=== PATIENT | female | born 1950 | race Caucasian/White ===

== ENCOUNTER 2016-12-06 11:01 | Emergency (ER) | payer MEDICARE, OTHER ==
[2016-12-06 11:14] VITALS: BP 113/67; PULSE 70; RESP 18; TEMP 97.9
[2016-12-06] MEDS ORDERED: HYDROcodone/APAP 5-325MG 1 EACH TAB PO STA (12:03)
[2016-12-06] MEDS ORDERED: KETOROLAC 60 MG/2 ML VIAL IM STA (12:03)
--- NOTE | 2016-12-06 12:15 | ED ---
General Adult HPI - General Chief complaint: Back Pain/Injury Stated complaint: back and leg pain Time Seen by Provider: 12/06/16 11:27 Source: patient, RN notes reviewed, old records reviewed Mode of arrival: wheelchair Limitations: no limitations - History of Present Illness Initial comments: This is a 66-year-old female the ER for reevaluation of back pain. Patient's denies history of back pain, denies history of trauma. Patient does have history of heart disease, does have history of aortic disease. Stents. High blood pressure. Again patient denies neurological deficit, no loss of bowel or bladder. No weakness in legs or feet. Patient is able to ambulate. Pain is worse with movement, worse in her left buttocks area. Radiates down left leg - Related Data Home Medications Medication Instructions Recorded Confirmed LORazepam [Ativan] 1 mg PO TID 05/06/15 12/06/16 Valsartan/Hydrochlorothiazide 1 tab PO DAILY 01/15/16 12/06/16 [Diovan Hct 80-12.5 mg Tablet] Allergies Allergy/AdvReac Type Severity Reaction Status Date / Time codeine Allergy Rash/Hives Verified 12/06/16 11:59 Penicillins Allergy Rash/Hives Verified 12/06/16 11:59 pneumococcal vaccine Allergy Unknown Verified 12/06/16 11:59 Sulfa (Sulfonamide Allergy Nausea & Verified 12/06/16 11:59 Antibiotics) Vomiting & Diarrhea Tetanus Vaccines and Toxoid Allergy Unknown Verified 12/06/16 11:59 [Tetanus Vaccines & Toxoid] Review of Systems ROS Statement: Those systems with pertinent positive or pertinent negative responses have been documented in the HPI. ROS Other: All systems not noted in ROS Statement are negative. Past Medical History Past Medical History: Coronary Artery Disease (CAD), Chest Pain / Angina, CVA/ TIA, Hypertension Additional Past Medical History / Comment(s): TIA History of Any Multi-Drug Resistant Organisms: None Reported Past Surgical History: Cholecystectomy, Heart Catheterization, Hysterectomy, Joint Replacement Additional Past Surgical History / Comment(s): L knee replacement, colonscopy December 2015. 3 surgeries to lt knee Past Psychological History: No Psychological Hx Reported, Anxiety Additional Psychological History / Comment(s): occational anxiety and takes xanax Smoking Status: Former smoker Past Alcohol Use History: None Reported Past Drug Use History: None Reported - Past Family History Father Family Medical History: Diabetes Mellitus, Hypertension Mother Family Medical History: Cancer, Congestive Heart Failure (CHF) General Exam - General Exam Comments Initial Comments: Mild bony tenderness lumbosacral spine, negative straight leg raise Limitations: no limitations General appearance: alert, in no apparent distress Head exam: Present: atraumatic, normocephalic, normal inspection Eye exam: Present: normal appearance, PERRL, EOMI. Absent: scleral icterus, conjunctival injection, periorbital swelling ENT exam: Present: normal exam, mucous membranes moist Neck exam: Present: normal inspection. Absent: tenderness, meningismus, lymphadenopathy Respiratory exam: Present: normal lung sounds bilaterally. Absent: respiratory distress, wheezes, rales, rhonchi, stridor Cardiovascular Exam: Present: regular rate, normal rhythm, normal heart sounds. Absent: systolic murmur, diastolic murmur, rubs, gallop, clicks GI/Abdominal exam: Present: soft, normal bowel sounds. Absent: distended, tenderness, guarding, rebound, rigid Extremities exam: Present: normal inspection, full ROM, normal capillary refill. Absent: tenderness, pedal edema, joint swelling, calf tenderness Back exam: Present: normal inspection Neurological exam: Present: alert, oriented X3, CN II-XII intact Psychiatric exam: Present: normal affect, normal mood Skin exam: Present: warm, dry, intact, normal color. Absent: rash Course Vital Signs 12/06/16 11:13 Temperature 97.9 F Pulse Rate 70 Respiratory 18 Rate Blood Pressure 113/67 O2 Sat by Pulse 99 Oximetry - Reevaluation(s) Reevaluation #1: 12/06/16 12:14 Patient's pain is improved with a control here in the emergency room Medical Decision Making - Medical Decision Making 66 female the ER with nontraumatic back pain for 2 days. Takes Motrin for pain with no help. History of heart disease, patient given pain control here in emergency room will follow up with orthopedic doctor as directed - Radiology Data Radiology results: report reviewed (CT abdomen and pelvis shows no evidence of aortic dissection), image reviewed Disposition Clinical Impression: Mechanical back pain, Strain of lumbar region, Sciatica Disposition: HOME SELF-CARE Condition: Good Instructions: Acute Low Back Pain (ED) Referrals: Pantera Fuentes DO [Primary Care Provider] - 1-2 days
--- NOTE | 2016-12-06 12:40 | CT ---
EXAMINATION TYPE: CT abdomen pelvis wo con DATE OF EXAM: 12/06/2016 12:26 PM COMPARISON: NONE INDICATION: Patient complains of lower back pain with radiation to the left leg. DLP: 970 mGycm, Automated exposure control for dose reduction was used. CONTRAST: 0 mL of Omnipaque 300. Study performed without Oral Contrast TECHNIQUE: Axial images were obtained from above the diaphragm to the pubic rami in the axial plane a t 5 mm thick sections. Reconstructed images are reviewed on the computer in the coronal plane. FINDINGS: Limited CT sections are obtained the lung bases. The lung bases are clear. Small hiatal hernia is p resent. CT ABDOMEN: Liver: Normal Spleen: Normal Pancreas: Normal Adrenal glands: The adrenal glands are normal. Gallbladder: Not identified Kidneys: No masses are evident. No hydronephrosis is present. No cysts are present. Delayed images were obtained through the kidneys, which remain unremarkable. Aorta: Normal Inferior vena cava: Normal. CT PELVIS: Loops of bowel within the abdomen and pelvis are normal. Diverticular changes are within the sigm oid colon. Postsurgical changes within the distal sigmoid colon. Appendix: Normal as visualized. Urinary bladder: Normal. Genitourinary structures: Uterus and ovaries are not identified. Osseous structures: No suspicious lytic or sclerotic lesions. Facet changes are present. No spinal ca nal stenosis or neural foraminal stenosis is identified. Degenerative changes are within the sacroili ac joints. IMPRESSIONS: 1. Diverticulosis without acute diverticulitis sigmoid colon. 2. Hiatal hernia. 3. No acute changes.
== END 2016-12-06 14:00 | disposition home or self-care (01) ==
LOC: EC 11:01
DX: S39.012A Strain of muscle, fascia and tendon of lower back, initial encounter (principal); M54.30 Sciatica, unspecified side; F41.9 Anxiety disorder, unspecified; I10 Essential (primary) hypertension; Z87.891 Personal history of nicotine dependence; Z88.5 Allergy status to narcotic agent; Z88.0 Allergy status to penicillin; Z88.7 Allergy status to serum and vaccine; Z88.2 Allergy status to sulfonamides; Z79.899 Other long term (current) drug therapy; X58.XXXA Exposure to other specified factors, initial encounter
CPT/HCPCS: 99284; 96372; 74176; J1885

== ENCOUNTER → 2017-04-22 | Outpatient (CLI) | payer MEDICARE, OTHER ==
--- NOTE | 2017-04-22 11:22 | MM ---
Reason for exam: clinical finding. Last mammogram was performed 4 years and 11 months ago. History: Patient is postmenopausal. Benign excisional biopsy of the right breast. Took hormonal contraceptives for 2 years. Took estrogen for 1 year. Indicated problem(s): lump or thickening in both breasts. Physical Findings: Nurse did not find any significant physical abnormalities on exam. MG 3D Diag Mammo W/Cad CEZAR Bilateral CC and MLO view(s) were taken. Prior study comparison: May 15, 2012, mammogram, performed at [facility]. February 11, 2011, mammogram, performed at [facility]. There are scattered fibroglandular densities. No significant new findings when compared with previous films. These results were verbally communicated with the patient and result sheet given to the patient on 04/22/17. ASSESSMENT: Benign, BI-RAD 2 RECOMMENDATION: Routine screening mammogram of both breasts in 1 year. Manage patient on a clinical basis.
== END | disposition home or self-care (01) ==
LOC: RADMAMWWP 10:29
PROVIDERS: ATTEND Family Medicine
DX: N63 Unspecified lump in breast (principal)
CPT/HCPCS: G0204; G0279

== ENCOUNTER → 2018-07-22 | Outpatient (CLI) | payer MEDICARE, OTHER ==
--- NOTE | 2018-07-22 14:44 | BD ---
EXAMINATION TYPE: Axial Bone Density DATE OF EXAM: 07/22/2018 COMPARISON: NONE CLINICAL HISTORY: Height: 64 IN Weight: 158 LBS FRAX RISK QUESTIONS: Secondary Osteoporosis: 3. Menopause before 45: YES AGE 26 TOTAL HYST RISK FACTORS HISTORY OF: Postmenopausal woman: AGE 26 Take estrogen and/or progesterone medications: NOT NOW How long: AGE 26 - 27 MEDICATIONS: Additional Medications: HEART MED, LORAZEPAM, EXAM MEASUREMENTS: Bone mineral densitometry was performed using the [employer] System. Bone mineral density as measured about the Lumbar spine is: ----- L1-L4(G/cm2): 1.194 T Score Values are as follows: ----- L2: -0.1 ----- L3: 0.4 ----- L4: 0.4 ----- L1-L4: 0.1 Bone mineral density BASELINE Bone mineral density about the R hip (g/cm2): 0.786 Bone mineral density about the L hip (g/cm2): 0.791 T Score values are as follows: -----R Neck: -1.8 -----L Neck: -1.8 -----R Total: -1.9 -----L Total: -1.7 Bone mineral density BASELINE IMPRESSION: Osteopenia about the bilateral femora. NOTE: T-SCORE=SD OF THE YOUNG ADULT MEAN.
== END | disposition home or self-care (01) ==
LOC: RADBDWWP 11:57
PROVIDERS: ATTEND Family Medicine
DX: M85.852 Other specified disorders of bone density and structure, left thigh (principal); M85.851 Other specified disorders of bone density and structure, right thigh; Z78.0 Asymptomatic menopausal state
CPT/HCPCS: 77080

== ENCOUNTER → 2018-11-10 | Outpatient (CLI) | payer MEDICARE, OTHER ==
--- NOTE | 2018-11-10 09:09 | XR ---
EXAMINATION TYPE: XR chest 2V DATE OF EXAM: 11/10/2018 COMPARISON: 07/24/2017 HISTORY: Nocturnal palpitations TECHNIQUE: Frontal and lateral views of the chest are obtained. FINDINGS: There is no focal air space opacity, pleural effusion, or pneumothorax seen. The cardiac silhouette size is within normal limits. The osseous structures are intact. Minimal multilevel dege nerative change of the thoracic spine is noted. IMPRESSION: No acute cardiopulmonary process.
== END ==
LOC: RADXRMAIN 08:27
PROVIDERS: ATTEND Family Medicine
DX: R07.89 Other chest pain (principal)
CPT/HCPCS: 71046

== ENCOUNTER 2021-09-02 11:38 | Observation (INO) | payer MEDICARE, OTHER ==
[2021-09-02] MEDS ORDERED: ONDANSETRON 4 MG/2 ML VIAL IVP STA (12:11)
[2021-09-02] MEDS ORDERED: MORPHINE SULFATE 4 MG/ML SYRINGE IVP STA (12:11)
[2021-09-02] MEDS ORDERED: ASPIRIN 81 MG PO STA (12:12)
[2021-09-02] MEDS ORDERED: SODIUM CHLORIDE 0.9% 1,000 ML IV STA (12:12)
[2021-09-02 12:43] LABS: Partial Thromboplastin Time 24.8 sec (22.0-30.0); Prothrombin Time 10.7 sec (9.0-12.0)
[2021-09-02 12:44] LABS: ALT 18 U/L (4-34); AST 24 U/L (14-36); African American GFR (CKD) >90 (>60 ml/min/1.73 sqM); Albumin 4.1 g/dL (3.5-5.0); Alkaline Phosphatase 82 U/L (38-126); Amylase 65 U/L (30-110); Anion Gap 11 mmol/L; Blood Urea Nitrogen 6 mg/dL (7-17); Calcium 9.9 mg/dL (8.4-10.2); Carbon Dioxide 24 mmol/L (22-30); Chloride 104 mmol/L (98-107); Glucose 107 mg/dL (74-99); Lipase 172 U/L (23-300); Magnesium 2.3 mg/dL (1.6-2.3); Non-African American GFR(CKD) 84 (>60 ml/min/1.73 sqM); Potassium 2.9 mmol/L (3.5-5.1); Sodium 139 mmol/L (137-145); Total Bilirubin 1.6 mg/dL (0.2-1.3); Total Protein 6.6 g/dL (6.3-8.2)
[2021-09-02 12:48] LABS: Basophils # (A) 0.1 k/uL (0-0.2); Basophils % (A) 1 %; Eosinophils % (A) 1 %; HCT 46.1 % (34.0-46.0); HGB 16.2 gm/dL (11.4-16.0); Lymphocytes # (A) 1.6 k/uL (1.0-4.8); Lymphocytes % (A) 26 %; MCHC 35.2 g/dL (31.0-37.0); Mean Platelet Volume 6.6; Monocytes # (A) 0.3 k/uL (0-1.0); Monocytes % (A) 4 %; Neutrophils # (A) 4.1 k/uL (1.3-7.7); Neutrophils % (A) 68 %; Platelet Count 254 k/uL (150-450); RBC 5.06 m/uL (3.80-5.40); RDW 13.3 % (11.5-15.5); WBC 6.1 k/uL (3.8-10.6)
--- NOTE | 2021-09-02 12:52 | XR ---
EXAMINATION TYPE: XR chest 2V DATE OF EXAM: 09/02/2021 COMPARISON: 11/10/2018 TECHNIQUE: PA and lateral views submitted. HISTORY: Chest pain FINDINGS: The lungs are clear and there is no pneumothorax, pleural effusion, or focal pneumonia. Hypertrophi c change of the spine. Hyperinflation suggests COPD. IMPRESSION: 1. No acute process.
[2021-09-02] MEDS ORDERED: POTASSIUM CHLORIDE ER 20 MEQ TAB.ER PO STA ×2 (13:11→14:55)
[2021-09-02] MEDS ORDERED: ACETAMINOPHEN TAB 500 MG TAB PO STA (13:29)
[2021-09-02] MEDS ORDERED: NITROGLYCERIN SL TABS 0.4 MG TAB SUBLINGUAL STA (13:56)
--- NOTE | 2021-09-02 14:00 | CT ---
EXAMINATION TYPE: CT angio thor/abd pel aorta DATE OF EXAM: 09/02/2021 1:32 PM COMPARISON: HISTORY: Chest pain with radiation to back, mass left shoulder CT DLP: 1190 mGycm Automated exposure control for dose reduction was used. TECHNIQUE: Performed without and with IV Contrast, patient injected with 100 mL of Isovue 300. . FINDINGS: There are posterior subsegmental areas of groundglass consolidation bilaterally. Correlate for atelec tasis. Diverticulosis of the colon. Suggestion of previous surgery involving the rectosigmoid junctio n. Aorta of normal caliber with no evidence of aneurysm. Mild atherosclerotic changes. Coronary artery c alcification noted. Heart size mildly enlarged. Visualized central pulmonary arteries enhance normally. Small hiatal gertrudis ia noted. No pathologic adenopathy within the mediastinum or hilum. There is an aberrant course of th e right subclavian artery. This can be associated with vascular rings and compression of the airway a s well as the esophagus correlate clinically. 8mm nodularity left adrenal gland nonspecific. Liver and spleen have a normal appearance. Adrenal gla nds normal morphology. No obvious hydronephrosis or nephrolithiasis. Subcentimeter exophytic lesion l ower pole left kidney indeterminate by technique utilized. Visualized pancreas has a normal appearanc e. Bowel gas pattern nonspecific with no obstruction. Appendix normal. There is multilevel hypertrophic and degenerative change of the spine. Arthropathy of the hips. Bladder distends normally. No free flu id or free air.. IMPRESSION: 1. Aberrant right subclavian artery can be associated with a vascular ring correlate clinically. 2. Posterior subsegmental atelectasis favored over pneumonitis. 3. Diverticulosis of the colon. 4. Coronary artery calcification.
--- NOTE | 2021-09-02 14:08 | ED ---
General Adult HPI - General Chief complaint: Chest Pain Stated complaint: chest pain Time Seen by Provider: 09/02/21 11:57 Source: patient, RN notes reviewed, old records reviewed Mode of arrival: EMS Limitations: no limitations - History of Present Illness Initial comments: Patient is a 71-year-old female with past medical history remarkable for CAD, c hest pain, hypertension, CVA who presents to the department complaining of left- sided chest pain. Describes it as a substernal/left-sided chest pain that radiates towards the left shoulder. States it started last night and awoke her from sleep. Describes it as an 8 or 9 out of 10. Denies any associated shortness of breath, but does endorse some mild nausea. Denies any episodes of emesis or diarrhea. Denies any abdominal pain. Has no back pain currently. Denies any weakness, numbness, lightheadedness. Presents over concern for the chest pain as it is not resolved at this time. - Related Data Home Medications Medication Instructions Recorded Confirmed LORazepam [Ativan] 1 mg PO BID PRN 05/06/15 09/02/21 Metoprolol Tartrate [Lopressor] 50 mg PO HS 09/02/21 09/02/21 Multivitamins, Thera [Multivitamin 1 tab PO DAILY 09/02/21 09/02/21 (formulary)] Allergies Allergy/AdvReac Type Severity Reaction Status Date / Time codeine Allergy Rash/Hives Verified 09/02/21 13:31 Penicillins Allergy Rash/Hives Verified 09/02/21 13:31 pneumococcal vaccine Allergy Unknown Verified 09/02/21 13:31 Sulfa (Sulfonamide Allergy Nausea & Verified 09/02/21 13:31 Antibiotics) Vomiting & Diarrhea Tetanus Vaccines and Toxoid Allergy Unknown Verified 09/02/21 13:31 [Tetanus Vaccines & Toxoid] ketorolac [From Toradol] AdvReac Nausea & Verified 09/02/21 13:31 Vomiting Review of Systems ROS Statement: Those systems with pertinent positive or pertinent negative responses have been documented in the HPI. Review of Systems: CONST: Denies fever EYES: Denies blurry vision ENT: Denies nasal congestion C/V: Endorses chest pain RESP: Denies shortness of breath GI: Denies abdominal pain : Denies dysuria SKIN: Denies rash. MSK: Denies joint pain. NEURO: Denies headache ROS Other: All systems not noted in ROS Statement are negative. Past Medical History Past Medical History: Coronary Artery Disease (CAD), Chest Pain / Angina, CVA/TIA, Hypertension, Osteoarthritis (OA) Additional Past Medical History / Comment(s): TIA, colitis was previuosly charted but when i asked if she had-stated not that i know of". uterine fibroids-has sx, rt eye start of cataract. lt eye has freckle, "fluid around heart" History of Any Multi-Drug Resistant Organisms: None Reported Past Surgical History: Bowel Resection, Cholecystectomy, Heart Catheterization, Hysterectomy, Joint Replacement Additional Past Surgical History / Comment(s): L knee replacement, colonscopy December 2015, total hysterectomy. 3 surgeries to lt knee Past Anesthesia/Blood Transfusion Reactions: No Reported Reaction Past Psychological History: Anxiety Past Alcohol Use History: None Reported Past Drug Use History: None Reported - Past Family History Father Family Medical History: Diabetes Mellitus, Hypertension Mother Family Medical History: Cancer, Congestive Heart Failure (CHF) Brother(s) Family Medical History: Chest Pain / Angina, Coronary Artery Disease (CAD) Sister(s) Family Medical History: CVA/TIA Son(s) Family Medical History: Coronary Artery Disease (CAD) General Exam - General Exam Comments Initial Comments: General: Appears in no acute distress. HEAD: Normal with no signs of head trauma. EYES: PERRLA, EOMI, conjunctiva normal, no discharge. ENT: Hearing grossly intact, normal oropharynx. RESPIRATORY: Clear breath sounds bilaterally. No wheezes, rales, or rhonchi. C/V: Regular rate and rhythm. S1 and S2 auscultated, no edema, peripheral pulses 2+ and intact throughout. Chest pain is somewhat reproducible on palpation, however not fully reproducible. She still complains of his on the inside." ABD: Abd is soft, nontender, nondistended EXT: Normal range of motion, no obvious deformity SKIN: No rashes or lesions observed on exposed skin. NEURO: Alert and oriented 4. No focal sensory strength deficits. Limitations: no limitations Course Vital Signs 09/02/21 09/02/21 09/02/21 11:48 12:27 13:01 Temperature 97.1 F L 98.2 F Pulse Rate 63 57 L Pulse Rate [ 57 L Commercial [employer] ] Respiratory 18 18 Rate Blood Pressure 160/100 179/100 O2 Sat by Pulse 99 97 Oximetry 09/02/21 09/02/21 14:00 14:48 Temperature Pulse Rate 78 54 L Pulse Rate [ Commercial [employer] ] Respiratory 18 22 Rate Blood Pressure 161/101 138/90 O2 Sat by Pulse 96 96 Oximetry Medical Decision Making - Medical Decision Making Patient presents emergency Department complaining of typical chest pain. Started last night. Vital signs were reviewed and are stable at this time. We will obtain a cardiac workup. Patient was in agreement this plan. She'll be given morphine, Tylenol, aspirin as well as 1 L fluid bolus. She was in agree ment this plan. On further discussion, patient states that the pain seems to radiate towards her back, and awoke her from sleep. Due to this history, I would like to rule out the possibility of aortic dissection, considering the severity of the pain. We will therefore obtain a CT angiogram. EKG showed no signs of acute ischemia. Chest x-ray revealed no acute cardiopulmonary process. CT angiogram revealed no signs of dissection of the aorta or a pulmonary embolism.. There is atelectasis present, diverticulosis without diverticulitis, as well as coronary artery calcifications. There is a lso an apparent right subclavian artery. Laboratory studies are remarkable for a hypokalemia of 2.9. Remainder of labs are relatively unremarkable. Troponin is negative. On reevaluation, patient feels improved. Chest pain is resolved. I discussed the results of her imaging and laboratory studies. Due to patient's typical chest pain, as well as her heart score being moderate at 4-5, I would like to admitted to the hospital for cardiac observation on monitoring tech. She was in agreement this plan. We will trauma troponins. Cardiology will be consulted. I spoke with the admitting team under Dr. Mcleod who accepted the patient. Patient was therefore admitted to stable condition to observation telemetry. - Lab Data Result diagrams: 09/02/21 12:22 09/02/21 12: Lab Results 09/02/21 09/02/21 09/02/21 Range/Units 12: 12: 12:22 WBC 6.1 (3.8-10.6) k/uL RBC 5.06 (3.80-5.40) m/uL Hgb 16.2 H (11.4-16.0) gm/dL Hct 46.1 H (34.0-46.0) % MCV 91.0 (80.0-100.0) fL MCH 32.0 (25.0-35.0) pg MCHC 35.2 (31.0-37.0) g/dL RDW 13.3 (11.5-15.5) % Plt Count 254 (150-450) k/uL MPV 6.6 Neutrophils % 68 % Lymphocytes % 26 % Monocytes % 4 % Eosinophils % 1 % Basophils % 1 % Neutrophils # 4.1 (1.3-7.7) k/uL Lymphocytes # 1.6 (1.0-4.8) k/uL Monocytes # 0.3 (0-1.0) k/uL Eosinophils # 0.0 (0-0.7) k/uL Basophils # 0.1 (0-0.2) k/uL PT 10.7 (9.0-12.0) sec INR 1.0 (<1.2) APTT 24.8 (22.0-30.0) sec Sodium 139 (137-145) mmol/L Potassium 2.9 L (3.5-5.1) mmol/L Chloride 104 (98-107) mmol/L Carbon Dioxide 24 (22-30) mmol/L Anion Gap 11 mmol/L BUN 6 L (7-17) mg/dL Creatinine 0.74 (0.52-1.04) mg/dL Est GFR (CKD-EPI)AfAm >90 (>60 ml/min/1.73 sqM) Est GFR (CKD-EPI)NonAf 84 (>60 ml/min/1.73 sqM) Glucose 107 H (74-99) mg/dL Calcium 9.9 (8.4-10.2) mg/dL Magnesium 2.3 (1.6-2.3) mg/dL Total Bilirubin 1.6 H (0.2-1.3) mg/dL AST 24 (14-36) U/L ALT 18 (4-34) U/L Alkaline Phosphatase 82 (38-126) U/L Troponin I (0.000-0.034) ng/mL Total Protein 6.6 (6.3-8.2) g/dL Albumin 4.1 (3.5-5.0) g/dL Amylase 65 (30-110) U/L Lipase 172 (23-300) U/L 09/02/21 Range/Units 12:22 WBC (3.8-10.6) k/uL RBC (3.80-5.40) m/uL Hgb (11.4-16.0) gm/dL Hct (34.0-46.0) % MCV (80.0-100.0) fL MCH (25.0-35.0) pg MCHC (31.0-37.0) g/dL RDW (11.5-15.5) % Plt Count (150-450) k/uL MPV Neutrophils % % Lymphocytes % % Monocytes % % Eosinophils % % Basophils % % Neutrophils # (1.3-7.7) k/uL Lymphocytes # (1.0-4.8) k/uL Monocytes # (0-1.0) k/uL Eosinophils # (0-0.7) k/uL Basophils # (0-0.2) k/uL PT (9.0-12.0) sec INR (<1.2) APTT (22.0-30.0) sec Sodium (137-145) mmol/L Potassium (3.5-5.1) mmol/L Chloride (98-107) mmol/L Carbon Dioxide (22-30) mmol/L Anion Gap mmol/L BUN (7-17) mg/dL Creatinine (0.52-1.04) mg/dL Est GFR (CKD-EPI)AfAm (>60 ml/min/1.73 sqM) Est GFR (CKD-EPI)NonAf (>60 ml/min/1.73 sqM) Glucose (74-99) mg/dL Calcium (8.4-10.2) mg/dL Magnesium (1.6-2.3) mg/dL Total Bilirubin (0.2-1.3) mg/dL AST (14-36) U/L ALT (4-34) U/L Alkaline Phosphatase (38-126) U/L Troponin I <0.012 (0.000-0.034) ng/mL Total Protein (6.3-8.2) g/dL Albumin (3.5-5.0) g/dL Amylase (30-110) U/L Lipase (23-300) U/L - EKG Data -: EKG Interpreted by Me EKG Comments: 12-lead Electrocardiogram Interpretation Note EKG was reviewed and interpreted by myself. 12-lead ECG performed at 1205 is interpreted by me as revealing sinus bradycardia at a rate of 57 beats per minute. Left axis deviation. CA interval is 190 ms. There were no ST or T wave abnormalities to suggest myocardial ischemia or injury. R wave progression across the precordium was satisfactory. By my interpretation this EKG is non- diagnostic for acute ischemia. Patient has baseline artifact in lead V4. Disposition Clinical Impression: Chest pain, Hypokalemia Disposition: ADMITTED IP TO THIS HOSP Condition: Stable
[2021-09-02] MEDS ORDERED: NALOXONE 0.4 MG/ML 1 ML VIAL IV PRN (14:36)
[2021-09-02] MEDS ORDERED: MORPHINE SULFATE 4 MG/ML SYRINGE IV PRN (14:36)
[2021-09-02] MEDS ORDERED: ONDANSETRON 4 MG/2 ML VIAL IVP PRN (14:36)
[2021-09-02] MEDS: HEPARIN SODIUM,PORCINE/PF 5,000 UNIT/0.5 ML SYRINGE SQ SCH ×2 (16:34→23:07)
[2021-09-02] MEDS: LORazepam 1 MG TAB PO PRN (20:20)
[2021-09-02] MEDS ORDERED: METOPROLOL TARTRATE 50 MG TAB PO SCH (21:00)
[2021-09-03 07:34] VITALS: TEMP 97.7
[2021-09-03] MEDS: HEPARIN SODIUM,PORCINE/PF 5,000 UNIT/0.5 ML SYRINGE SQ SCH ×2 (07:35→15:22)
[2021-09-03] MEDS ORDERED: POTASSIUM CHLORIDE ER 20 MEQ TAB.ER PO STA (08:05)
[2021-09-03] MEDS ORDERED: AMINOPHYLLINE 500 MG/20 ML VIAL IV PRN (08:10)
[2021-09-03] MEDS ORDERED: CAFFEINE CITRATE 60 MG/3 ML VIAL IV PRN (08:10)
[2021-09-03] MEDS ORDERED: REGADENOSON 0.4 MG/5 ML SYRINGE IV PRN (08:10)
[2021-09-03] MEDS ORDERED: MULTIVITAMINS, THERA 1 EACH TAB PO SCH (09:00)
--- NOTE | 2021-09-03 09:44 | P.CRDCN ---
History of Present Illness Consult date: 09/03/21 History of present illness: HISTORY OF PRESENT ILLNESS: This is a 71 year old female with a past medical history significant for hypertension, anxiety, osteoarthritis, and TIA. Patient does not follow with a grain grader. We have been asked to see the patient in consultation for chest pain. Patient examined at the bedside. Patient states she began having chest pain two nights ago. She reports the pain has been intermittent since that time. She reports radiation into the left arm. She states "it felt like my heart was going to explode". Patient denies chest pain at the time of examination. Patient believes she has a history of coronary artery disease and states she has had a cardiac cath in the past. However, there are no records of that in the hospital EMR or at [facility]. The patient did have a Monica scan in 2017 that was negative for ischemia. EKG reveals sinus mechanism with nonspecific ST-T wave changes. Left anterior fascicular block. Chest xray negative for acute process CT angio: Apparent right subclavian artery can be associated with a vascular ring. Correlate clinically. Posterior subsegmental atelectasis favored over pneumonitis. Diverticulosis of the colon. Coronary artery calcification. Laboratory data: WBC 6.1. Hemoglobin 16.2. Platelet count 254. Sodium 139. Potassium 2.9. BUN 6. Creatinine 0.74. Magnesium 2.3. Troponin negative 3. Current home cardiac medications include metoprolol 50 mg at night Most recent echocardiogram obtained in 2017 revealed ejection fraction 60-65%, trace aortic regurgitation, trace mitral regurgitation, mild tricuspid regurgitation REVIEW OF SYSTEMS: At the time of my exam: CONSTITUTIONAL: Denies fever or chills. HEENT: Denies blurred vision, vision changes, or eye pain. Denies hemoptysis CARDIOVASCULAR: Denies chest pain. Denies orthopnea. Denies PND. Denies palpitations RESPIRATORY: Denies shortness of breath. GASTROINTESTINAL: Denies abdominal pain. Denies nausea or vomiting. HEMATOLOGIC: Denies bleeding disorders. GENITOURINARY: Denies any blood in urine. SKIN: Denies pruitis. Denies rash. PHYSICAL EXAM: VITAL SIGNS: Reviewed. GENERAL: Well-developed in no acute distress. HEENT: Head is normocephalic. Pupils are equal, round. Sclerae anicteric. Mucous membranes of the mouth are moist. Neck supple. No JVD or thyromegaly LUNGS: Respirations even and unlabored. Lungs essentially clear to auscultation bilaterally. HEART: Regular rate and rhythm. S1 and S2 heard. ABDOMEN: Soft. Nondistended. Nontender. EXTREMITIES: Normal range of motion. No clubbing or cyanosis. Peripheral pulses intact. No lower extremity edema NEUROLOGIC: Awake and alert. Oriented x 3. ASSESSMENT: Chest pain, troponin negative x 3 Hypokalemia Hypertension Anxiety Osteoarthritis History of TIA PLAN: An acute coronary event has been ruled out Obtain 2-D echo to assess cardiac structure and function Resume home cardiac medications Patient to undergo Lexiscan stress test today to assess for ischemia Replace potassium Further recommendations pending patient's course Nurse practitioner note has been reviewed by physician. Signing provider agrees with the documented findings, assessment, and plan of care. Past Medical History Past Medical History: Coronary Artery Disease (CAD), Chest Pain / Angina, CVA/TIA, Hypertension, Osteoarthritis (OA) Additional Past Medical History / Comment(s): TIA, colitis was previuosly charted but when i asked if she had-stated not that i know of". uterine fibroids-has sx, rt eye start of cataract. lt eye has freckle, "fluid around heart" History of Any Multi-Drug Resistant Organisms: None Reported Past Surgical History: Bowel Resection, Cholecystectomy, Heart Catheterization, Hysterectomy, Joint Replacement Additional Past Surgical History / Comment(s): L knee replacement, colonscopy December 2015, total hysterectomy. 3 surgeries to lt knee Past Anesthesia/Blood Transfusion Reactions: No Reported Reaction Past Psychological History: Anxiety Past Alcohol Use History: None Reported Past Drug Use History: None Reported - Past Family History Father Family Medical History: Diabetes Mellitus, Hypertension Mother Family Medical History: Cancer, Congestive Heart Failure (CHF) Brother(s) Family Medical History: Chest Pain / Angina, Coronary Artery Disease (CAD) Sister(s) Family Medical History: CVA/TIA Son(s) Family Medical History: Coronary Artery Disease (CAD) Medications and Allergies Home Medications Medication Instructions Recorded Confirmed Type LORazepam [Ativan] 1 mg PO BID PRN 05/06/15 09/02/21 History Metoprolol Tartrate [Lopressor] 50 mg PO HS 09/02/21 09/02/21 History Multivitamins, Thera [Multivitamin 1 tab PO DAILY 09/02/21 09/02/21 History (formulary)] Allergies Allergy/AdvReac Type Severity Reaction Status Date / Time codeine Allergy Rash/Hives Verified 09/02/21 13:31 Penicillins Allergy Rash/Hives Verified 09/02/21 13:31 pneumococcal vaccine Allergy Unknown Verified 09/02/21 13:31 Sulfa (Sulfonamide Allergy Nausea & Verified 09/02/21 13:31 Antibiotics) Vomiting & Diarrhea Tetanus Vaccines and Toxoid Allergy Unknown Verified 09/02/21 13:31 [Tetanus Vaccines & Toxoid] ketorolac [From Toradol] AdvReac Nausea & Verified 09/02/21 13:31 Vomiting Physical Exam Vitals: Vital Signs Temp Pulse Pulse Pulse Resp BP BP 09/03/21 07:00 97.7 F 53 L 142/75 09/03/21 01:46 97.6 F 57 L 16 116/71 09/02/21 18:58 97.6 F 66 17 124/71 09/02/21 15:50 97.6 F 52 L 16 09/02/21 14:48 54 L 22 138/90 09/02/21 14:00 78 18 161/101 09/02/21 13:01 98.2 F 57 L 18 179/100 09/02/21 12:27 57 L 09/02/21 11:48 97.1 F L 63 18 160/100 BP Pulse Ox 09/03/21 07:00 96 09/03/21 01:46 95 09/02/21 18:58 95 09/02/21 15:50 163/82 98 09/02/21 14:48 96 09/02/21 14:00 96 09/02/21 13:01 97 09/02/21 12:27 09/02/21 11:48 99 Intake and Output 09/02/21 09/03/21 09/03/21 22:59 06:59 14:59 Other: # Voids 2 1 Results 09/02/21 12:22 09/02/21 12:22 Cardiac Enzymes 09/02/21 09/02/21 09/02/21 Range/Units 12:22 12:22 15:41 AST 24 (14-36) U/L Troponin I <0.012 <0.012 (0.000-0.034) ng/mL 09/02/21 Range/Units 19:50 AST (14-36) U/L Troponin I <0.012 (0.000-0.034) ng/mL Coagulation 09/02/21 Range/Units 12:22 PT 10.7 (9.0-12.0) sec APTT 24.8 (22.0-30.0) sec CBC 09/02/21 Range/Units 12:22 WBC 6.1 (3.8-10.6) k/uL RBC 5.06 (3.80-5.40) m/uL Hgb 16.2 H (11.4-16.0) gm/dL Hct 46.1 H (34.0-46.0) % Plt Count 254 (150-450) k/uL Comprehensive Metabolic Panel 09/02/21 Range/Units 12:22 Sodium 139 (137-145) mmol/L Potassium 2.9 L (3.5-5.1) mmol/L Chloride 104 (98-107) mmol/L Carbon Dioxide 24 (22-30) mmol/L BUN 6 L (7-17) mg/dL Creatinine 0.74 (0.52-1.04) mg/dL Glucose 107 H (74-99) mg/dL Calcium 9.9 (8.4-10.2) mg/dL AST 24 (14-36) U/L ALT 18 (4-34) U/L Alkaline Phosphatase 82 (38-126) U/L Total Protein 6.6 (6.3-8.2) g/dL Albumin 4.1 (3.5-5.0) g/dL Current Medications Generic Name Dose Route Start Last Admin Trade Name Freq PRN Reason Stop Dose Admin Heparin Sodium (Porcine) 5,000 unit 09/02/21 16:00 09/03/21 07:35 Heparin Sodium,Porcine/Pf 5,000 Unit/0.5 Ml Syringe SQ 5,000 unit Q8HR KATE Administration Lorazepam 1 mg 09/02/21 14:38 09/02/21 20:20 Lorazepam 1 Mg Tab PO 1 mg BID PRN Administration ANXIETY/SLEEP Metoprolol Tartrate 50 mg 09/02/21 21:00 09/02/21 20:16 Metoprolol Tartrate 50 Mg Tab PO 50 mg HS KATE Administration Morphine Sulfate 4 mg 09/02/21 14:36 Morphine Sulfate 4 Mg/Ml Syringe IV Q4HR PRN Severe Pain Multivitamins 1 each 09/03/21 09:00 09/03/21 07:35 Multivitamins, Thera 1 Each Tab PO 1 each DAILY AKTE Administration Naloxone HCl 0.2 mg 09/02/21 14:36 Naloxone 0.4 Mg/Ml 1 Ml Vial IV Q2M PRN Opioid Reversal Ondansetron HCl 4 mg 09/02/21 14:36 Ondansetron 4 Mg/2 Ml Vial IVP Q8HR PRN Nausea And Vomiting Potassium Chloride 20 meq 09/03/21 08:05 Potassium Chloride Er 20 Meq Tab.Er PO 09/03/21 08:06 ONCE STA Intake and Output 09/02/21 09/03/21 09/03/21 22:59 06:59 14:59 Other: # Voids 2 1 09/02/21 12:22 09/02/21 12:22
[2021-09-03] MEDS ORDERED: ASPIRIN 81 MG PO SCH (09:45)
[2021-09-03] MEDS ORDERED: AMINOPHYLLINE 500 MG/20 ML VIAL IV ONE (10:52)
[2021-09-03 11:13] LABS: African American GFR (CKD) 87.2 (60.0-200.0); Anion Gap 7.9 mmol/L (10.00-18.00); BUN/Creat Ratio 12.25 Ratio (12.00-20.00); Blood Urea Nitrogen 9.8 mg/dL (9.0-27.0); Calcium 9.1 mg/dL (8.7-10.3); Carbon Dioxide 26.1 mmol/L (20.0-27.5); Non-African American GFR(CKD) 75.2 (60.0-200.0); Potassium 4.2 mmol/L (3.5-5.5)
[2021-09-03 11:39] LABS: Basophils # (A) 0.07 X 10*3/uL (0.00-0.10); Basophils % (A) 1.2 %; Eosinophils # (A) 0.14 X 10*3/uL (0.04-0.35); Eosinophils % (A) 2.3 %; HCT 39.3 % (37.2-46.3); HGB 12.8 g/dL (12.0-15.0); Lymphocytes # (A) 2.01 X 10*3/uL (0.90-5.00); Lymphocytes % (A) 33.2 %; MCH 30.5 pg (27.0-32.0); MCHC 32.6 g/dL (32.0-37.0); MCV 93.8 fL (80.0-97.0); Mean Platelet Volume 9.4 fL (9.5-12.2); Monocytes # (A) 0.47 X 10*3/uL (0.20-1.00); Monocytes % (A) 7.8 %; Neutrophils # (A) 3.36 X 10*3/uL (1.80-7.70); Neutrophils % (A) 55.3 %; Platelet Count 190 X 10*3/uL (140-440); RBC 4.19 X 10*6/uL (4.10-5.20); RDW 13.5 % (11.5-14.5); WBC 6.06 X 10*3/uL (4.50-10.00)
--- NOTE | 2021-09-03 14:11 | P.HPIM ---
History of Present Illness H&P Date: 09/03/21 Chief Complaint: Chest pain History of present illness 71 [address] of Dr[address] Fuentes with past medical history of coronary artery disease previous TIA, hypertension and diverticular disease in the past, with history of sigmoid resection following a routine colonoscopy comes in with severe chest pain that woke up the patient last night. Chest pain was substernal and radiated to left arm atypical in character. She has history of coronary artery disease but denies any history of stent placement or [place]. She has had cardiac cath in the past. She also a Lexiscan in 2017 when she presented with chest pain and it was negative for ischemia. Vitals were r eviewed patient is afebrile pulse pressure 142/75 oxygenating at 96% on room air Labs reviewed patient's CBC is unremarkable CMP is unremarkable troponin 2 negative COVID negative EKG on 09/03 seconds a sinus bradycardia with left anterior fascicular block CT angiogram thoracic abdominal was suggestive for name brand right subclavian artery associated with a vascular ring? Related clinically with posterior subsegmental atelectasis is over pneumonitis diverticulosis of the colon: Coronary artery calcification seen cardiology consult placed. Patient was taken for Lexiscan ROS Constitutional: Denies chills, Denies fever, Denies lethargy, Denies malaise, Denies poor appetite, Denies weakness, Denies weight loss Eyes: denies decreased vision, denies diplopia, denies discharge, denies pain Ears: deny: decreased hearing Ears, nose, mouth and throat: Denies dental pain, Denies headache, Denies nasal discharge, Denies nose pain Cardiovascular: Denies chest pain, Denies decreased exercise tolerance, Denies edema, Denies high blood pressure, Denies irregular heart beat, Denies palpitations, Denies paroxysmal nocturnal dyspnea, Denies rapid heart beat, Denies shortness of breath Respiratory: Denies congestion, Denies cough, Denies cough with sputum, Denies dyspnea, Denies home oxygen, Denies wheezing Gastrointestinal: Denies abdominal pain, Denies change in bowel habits, Denies coffee ground emesis, Denies early satiety, Denies excessive gas, Denies he artburn, Denies hematemesis, Denies hematochezia, Denies loss of appetite, Denies nausea, Denies vomiting Genitourinary: Denies dysuria, Denies flank pain, Denies kidney stones, Denies menorrhagia, Denies urgency, Denies urinary frequency Musculoskeletal: Denies gait dysfunction, Denies limitation of motion, Denies morning stiffness, Denies muscle cramps Integumentary: Denies rash, Denies wounds, Denies brittle nails, Denies change in hair/nails, Denies darkening of skin Neurological: Denies balance difficulties, Denies change in speech, Denies double vision, Denies gait dysfunction, Denies loss of vision, Denies motor disturbance, Denies numbness, Denies paralysis, Denies paresthesias, Denies seizures Psychiatric: Denies anxiety, Denies depression Endocrine: Denies excessive sweating, Denies excessive thirst, Denies high blood sugars, Denies palpitations Hematologic/Lymphatic: Denies easy bruising, Denies lymphadenopathy Social history Ex-smoker smoked 10 cigarettes a day and quit 5-6 years ago Family history One son has coronary artery disease with stent placement at 48 One brother was coronary artery disease and diabetes and cancer Mother at 54 from colon cancer Data her diabetes Physical exam - Constitutional General appearance: cooperative, no acute distress, thin appears uncomfortable due to ongoing nausea - EENT Eyes: anicteric sclerae, PERRLA, normal appearance ENT: hearing grossly normal - Neck Neck: no lymphadenopathy, normal ROM, no other, no rigidity, no stridor, no thyromegaly - Respiratory Respiratory: bilateral: CTA, negative: diminished, dullness, rales, rhonchi, tender to palpate involving lower chest and epigastric - Cardiovascular Rhythm: regular Heart sounds: normal: S1, S2 Abnormal Heart Sounds: no systolic murmur, no diastolic murmur, no rub, no S3 Gallop, no S4 Gallop, no click, no other - Gastrointestinal General gastrointestinal: normal bowel sounds, soft tender involving the epigastric region - Integumentary Integumentary: no rash - Neurologic Neurologic: CNII-XII intact no motor or sensory deficit - Musculoskeletal Musculoskeletal: gait normal, strength equal bilaterally - Psychiatric Psychiatric: A&O x's 3, appropriate affect Assessment and plan #1 acute chest pain - Appears atypical likely gastric in etiology -Protonix 40 IV twice a day -Troponin 3 negative. -EKG negative for ST or T-wave changes -Lexiscan stress test ordered cardiology consult #2 history of coronary artery disease -Continue Diovan - Recommend aspirin 81 a day #3 history of diverticulosis status post sigmoid resection -Stable #4 former tobacco abuse -No COPD no wheezing on exam #5 anxiety -Continue Ativan 1 mg at bedtime as needed #6 history of TIA - Stable #[id number] prophylaxis with heparin every 12 #8 GI prophylaxis with Pepcid 20 daily #9 CODE STATUS full #10 disposition likely discharge today with Lexiscan negative Past Medical History Past Medical History: Coronary Artery Disease (CAD), Chest Pain / Angina, CVA/TIA, Hypertension, Osteoarthritis (OA) Additional Past Medical History / Comment(s): TIA, colitis was previuosly shamika rted but when i asked if she had-stated not that i know of". uterine fibroids- has sx, rt eye start of cataract. lt eye has freckle, "fluid around heart" History of Any Multi-Drug Resistant Organisms: None Reported Past Surgical History: Bowel Resection, Cholecystectomy, Heart Catheterization, Hysterectomy, Joint Replacement Additional Past Surgical History / Comment(s): L knee replacement, colonscopy December 2015, total hysterectomy. 3 surgeries to lt knee Past Anesthesia/Blood Transfusion Reactions: No Reported Reaction Past Psychological History: Anxiety Past Alcohol Use History: None Reported Past Drug Use History: None Reported - Past Family History Father Family Medical History: Diabetes Mellitus, Hypertension Mother Family Medical History: Cancer, Congestive Heart Failure (CHF) Brother(s) Family Medical History: Chest Pain / Angina, Coronary Artery Disease (CAD) Sister(s) Family Medical History: CVA/TIA Son(s) Family Medical History: Coronary Artery Disease (CAD) Medications and Allergies Home Medications Medication Instructions Recorded Confirmed Type LORazepam [Ativan] 1 mg PO BID PRN 05/06/15 09/02/21 History Metoprolol Tartrate [Lopressor] 50 mg PO HS 09/02/21 09/02/21 History Multivitamins, Thera [Multivitamin 1 tab PO DAILY 09/02/21 09/02/21 History (formulary)] Allergies Allergy/AdvReac Type Severity Reaction Status Date / Time codeine Allergy Rash/Hives Verified 09/02/21 13:31 Penicillins Allergy Rash/Hives Verified 09/02/21 13:31 pneumococcal vaccine Allergy Unknown Verified 09/02/21 13:31 Sulfa (Sulfonamide Allergy Nausea & Verified 09/02/21 13:31 Antibiotics) Vomiting & Diarrhea Tetanus Vaccines and Toxoid Allergy Unknown Verified 09/02/21 13:31 [Tetanus Vaccines & Toxoid] ketorolac [From Toradol] AdvReac Nausea & Verified 09/02/21 13:31 Vomiting Physical Exam Vitals: Vital Signs Temp Pulse Pulse Resp BP BP BP 09/03/21 07:00 97.7 F 53 L 142/75 09/03/21 01:46 97.6 F 57 L 16 116/71 09/02/21 18:58 97.6 F 66 17 124/71 09/02/21 15:50 97.6 F 52 L 16 163/82 09/02/21 14:48 54 L 22 138/90 09/02/21 14:00 78 18 161/101 Pulse Ox 09/03/21 07:00 96 09/03/21 01:46 95 09/02/21 18:58 95 09/02/21 15:50 98 09/02/21 14:48 96 09/02/21 14:00 96 Intake and Output 09/02/21 09/03/21 09/03/21 22:59 06:59 14:59 Other: # Voids 2 1 Weight 63.5 kg Results CBC & Chem 7: 09/03/21 07:07 09/03/21 07:07 Labs: Abnormal Lab Results - Last 24 Hours (Table) 09/03/21 09/03/21 Range/Units 07:07 07:07 MPV 9.4 L (9.5-12.2) fL Anion Gap 7.90 L (10.00-18.00) mmol/L Thrombosis Risk Factor Assmnt - Choose All That Apply Each Risk Factor Represents 2 Points: Age 61-74 years Thrombosis Risk Factor Assessment Total Risk Factor Score: 2 Thrombosis Risk Factor Assessment Level: Low Risk
[2021-09-03 14:32] VITALS: BMI 22.6
--- NOTE | 2021-09-03 14:32 | EST ---
EXERCISE STRESS LEXISCAN STRESS TEST: AGE: 71 SEX: F HT: 5'6" WT: 139 lbs. PROTOCOL: Lexiscan Cardiolite STAGE: NA DURATION OF EXERCISE: NA HEART RATE REST: 58 BLOOD PRESSURE REST: 179/100 MAXIMUM HEART RATE ACHIEVED: 105 MAXIMUM BLOOD PRESSURE: 180/106 85% MPHR: 128 100% MPHR: 151 METS: NA INDICATIONS: Chest pain CLINICAL INFORMATION: Baseline EKG revealed a sinus mechanism with minor nonspecific ST-T changes and leftward axis. With Lexiscan administration, heart rate changed from 58 to 98 beats per minute. Blood pressure changed from 179/100 to 165/97. EKG remained inconclusive. By EKG criteria, this was an inconclusive Lexiscan stress test. The nuclear scan results, which are more pertinent, will be reported by the radiologist. MMODL / IJN: [id number] /
[2021-09-03 16:27] VITALS: BP 161/92; PULSE 72; RESP 18
--- NOTE | 2021-09-03 16:34 | NM ---
EXAMINATION TYPE: NM stress lexiscan cardiolite DATE OF EXAM: 09/03/2021 COMPARISON: NONE HISTORY: Chest pain TECHNIQUE: After the intravenous administration of 9.5 mCi Tc 99m Sestamibi - Cardiolite resting SPE CT images acquired 60 minutes post injection. At peak stress 26.9 mCi Tc 99m Sestamibi - Stress images obtained 45 minutes post injection The patient was stressed with 0.4mg Lexiscan. FINDINGS: There is diminished radiotracer accumulation along the inferior lateral wall. This appears similar be tween stress and rest. No reversible perfusion defects are evident. No reversible stress defects on Spect images Wall motion is normal Ejection fraction is calculated to be 58 %. IMPRESSION: 1. Clinical correlation recommended for prior infarct inferior lateral wall. 2. No stress-induced ischemic changes.
[2021-09-03] MEDS: LORazepam 1 MG TAB PO PRN (17:22)
[2021-09-03] MEDS ORDERED: PANTOPRAZOLE 40 MG/10 ML VIAL IVP SCH (21:00)
--- NOTE | 2021-09-04 07:52 | ECHOF ---
Referral Reason:chest pain MEASUREMENTS -------- HEIGHT: 167.6 cm WEIGHT: 63.5 kg BP: 116/71 RVIDd: 2.7 cm (< 3.3) IVSd: 1.2 cm (0.6 - 1.1) LVIDd: 3.9 cm (3.9 - 5.3) LVPWd: 1.2 cm (0.6 - 1.1) IVSs: 1.6 cm LVIDs: 2.4 cm LVPWs: 1.5 cm LA Diam: 3.1 cm (2.7 - 3.8) LAESV Index (A-L): 25.16 ml/m Ao Diam: 3.0 cm (2.0 - 3.7) AV Cusp: 2.1 cm (1.5 - 2.6) MV EXCURSION: 18.048 mm (> 18.000) MV EF SLOPE: 59 mm/s (70 - 150) EPSS: 0.6 cm MV E Cristian: 0.54 m/s MV DecT: 365 ms MV A Cristian: 0.80 m/s MV E/A Ratio: 0.68 RAP: 5.00 mmHg RVSP: 36.66 mmHg FINDINGS -------- Sinus rhythm. Suboptimal image quality - poor subcostal views. The left ventricular size is normal. There is borderline concentric left ventricular hypertrophy. Overall left ventricular systolic function is normal with, an EF between 55 - 60 %. The right ventricle is normal in size. Normal LA size by volume 22+/-6 ml/m2. The right atrium is normal in size. There is mild aortic regurgitation. There is trace to mild mitral regurgitation. Mild tricuspid regurgitation present. There is mild pulmonary hypertension. The right ventricular systolic pressure, as measured by Doppler, is 36.66mmHg. Trace/mild (physiologic) pulmonic regurgitation. The aortic root size is normal. There is no pericardial effusion. CONCLUSIONS -------- 1. The left ventricular size is normal. 2. There is borderline concentric left ventricular hypertrophy. 3. Overall left ventricular systolic function is normal with, an EF between 55 - 60 %. 4. There is mild aortic regurgitation. 5. There is trace to mild mitral regurgitation. 6. Mild tricuspid regurgitation present. 7. There is mild pulmonary hypertension. 8. The right ventricular systolic pressure, as measured by Doppler, is 36.66mmHg. 9. Trace/mild (physiologic) pulmonic regurgitation. 10. There is no pericardial effusion. TRIAGE CLINICIAN: Lyndsay Johnson RDCS
== END 2021-09-03 17:35 | disposition home or self-care (01) ==
LOC: EC 11:38 → 6NMEDSUR 14:36
PROVIDERS: ADMIT Family Medicine; ATTEND Family Medicine
DX: R07.89 Other chest pain (principal); R07.2 Precordial pain; R11.0 Nausea; I25.10 Atherosclerotic heart disease of native coronary artery without angina pectoris; K57.30 Diverticulosis of large intestine without perforation or abscess without bleeding; I10 Essential (primary) hypertension; M19.90 Unspecified osteoarthritis, unspecified site; D25.9 Leiomyoma of uterus, unspecified; F41.9 Anxiety disorder, unspecified; J98.11 Atelectasis; E87.6 Hypokalemia; R00.1 Bradycardia, unspecified; I27.20 Pulmonary hypertension, unspecified; I08.3 Combined rheumatic disorders of mitral, aortic and tricuspid valves; I44.4 Left anterior fascicular block; Z20.822 Contact with and (suspected) exposure to COVID-19; Z86.73 Personal history of transient ischemic attack (TIA), and cerebral infarction without residual deficits; Z87.891 Personal history of nicotine dependence; Z79.899 Other long term (current) drug therapy; Z88.5 Allergy status to narcotic agent; Z88.0 Allergy status to penicillin; Z88.2 Allergy status to sulfonamides; Z88.8 Allergy status to other drugs, medicaments and biological substances; Z88.7 Allergy status to serum and vaccine; Z90.49 Acquired absence of other specified parts of digestive tract; Z90.710 Acquired absence of both cervix and uterus; Z96.652 Presence of left artificial knee joint; Z83.3 Family history of diabetes mellitus; Z82.49 Family history of ischemic heart disease and other diseases of the circulatory system; Z82.3 Family history of stroke; Z80.0 Family history of malignant neoplasm of digestive organs
CPT/HCPCS: 96376; 96372 ×2; 96375 ×2; 96361; 96374; 99285; 36415; 93005; 93017; 93306; 80053; 80048; 82150; 83690; 83735; 84484; 85025 ×2; 85610; 85730; 87635; 71046; 71275; 74174; 78452; G0378 ×2; A9500; J2270; J2405 ×2; J0280; J2785; C9113; Q9967; J1644 ×2

== ENCOUNTER 2022-06-08 12:03 | Observation (INO) | payer MEDICARE, OTHER ==
[2022-06-08] MEDS ORDERED: NITROGLYCERIN OINT 1 INCH/GM PACKET TOPICAL STA (12:20)
[2022-06-08] MEDS ORDERED: ASPIRIN 81 MG PO STA (12:20)
--- NOTE | 2022-06-08 12:26 | ED ---
General Adult HPI - General Chief complaint: Chest Pain Stated complaint: chest pain Time Seen by Provider: 06/08/22 12:10 Source: patient, RN notes reviewed, old records reviewed Mode of arrival: ambulatory Limitations: no limitations - History of Present Illness Initial comments: This is a 72-year-old female with past medical history significant for high blood pressure and anxiety. Patient comes in today stating for the last 2 weeks she's been having intermittent chest pain she states it lasts anywhere from half hour to hour time. Patient states that sharp in nature and it's in the center of her chest just to the left of the sternum. Patient states she's also short of breath when it occurs. Patient denies any radiation of pain. Patient denies any diaphoretic episodes. Patient states he is nauseous on occasion when she gets the pain. Patient states currently she just having chest pain there's no shortness of breath per patient denies abdominal pain patient denies nausea vomiting or diarrhea. Patient recently chills or cough. Patient denies any swelling to the legs or calf tenderness. - Related Data Home Medications Medication Instructions Recorded Confirmed LORazepam [Ativan] 1 mg PO BID PRN 05/06/15 09/02/21 Metoprolol Tartrate [Lopressor] 50 mg PO HS 09/02/21 09/02/21 Multivitamins, Thera [Multivitamin 1 tab PO DAILY 09/02/21 09/02/21 (formulary)] Previous Rx's Medication Instructions Recorded Aspirin 81 mg PO DAILY tab 09/03/21 Allergies Allergy/AdvReac Type Severity Reaction Status Date / Time codeine Allergy Rash/Hives Verified 06/08/22 12:10 Penicillins Allergy Rash/Hives Verified 06/08/22 12:10 pneumococcal vaccine Allergy Unknown Verified 06/08/22 12:10 Sulfa (Sulfonamide Allergy Nausea & Verified 06/08/22 12:10 Antibiotics) Vomiting & Diarrhea Tetanus Vaccines and Toxoid Allergy Unknown Verified 06/08/22 12:10 [Tetanus Vaccines & Toxoid] ketorolac [From Toradol] AdvReac Nausea & Verified 06/08/22 12:10 Vomiting Review of Systems ROS Statement: Those systems with pertinent positive or pertinent negative responses have been documented in the HPI. ROS Other: All systems not noted in ROS Statement are negative. Past Medical History Past Medical History: Coronary Artery Disease (CAD), Chest Pain / Angina, CVA/TIA, Hypertension, Osteoarthritis (OA) Additional Past Medical History / Comment(s): TIA, colitis was previuosly charted but when i asked if she had-stated not that i know of". uterine fibroids-has sx, rt eye start of cataract. lt eye has freckle, "fluid around heart" History of Any Multi-Drug Resistant Organisms: None Reported Past Surgical History: Bowel Resection, Cholecystectomy, Heart Catheterization, Hysterectomy, Joint Replacement Additional Past Surgical History / Comment(s): L knee replacement, colonscopy December 2015, total hysterectomy. 3 surgeries to lt knee Past Anesthesia/Blood Transfusion Reactions: No Reported Reaction Past Psychological History: Anxiety Past Alcohol Use History: None Reported Past Drug Use History: None Reported - Past Family History Father Family Medical History: Diabetes Mellitus, Hypertension Mother Family Medical History: Cancer, Congestive Heart Failure (CHF) Brother(s) Family Medical History: Chest Pain / Angina, Coronary Artery Disease (CAD) Sister(s) Family Medical History: CVA/TIA Son(s) Family Medical History: Coronary Artery Disease (CAD) General Exam - General Exam Comments Initial Comments: GENERAL: Patient is well-developed and well-nourished. Patient is nontoxic and well- hydrated and is in mild distress. ENT: Neck is soft and supple. No significant lymphadenopathy is noted. Oropharynx is clear. Moist mucous membranes. Neck has full range of motion without eliciting any pain. EYES: The sclera were anicteric and conjunctiva were pink and moist. Extraocular movements were intact and pupils were equal round and reactive to light. Eyelids were unremarkable. PULMONARY: Unlabored respirations. Good breath sounds bilaterally. No audible rales rhonchi or wheezing was noted. CARDIOVASCULAR: There is a regular rate and rhythm without any murmurs gallops or rubs. ABDOMEN: Soft and nontender with normal bowel sounds. SKIN: Skin is clear with no lesions or rashes and otherwise unremarkable. NEUROLOGIC: Patient is alert and oriented x3. Cranial nerves II through XII are grossly intact. Motor and sensory are also intact. Normal speech, volume and content. Symmetrical smile. MUSCULOSKELETAL: Normal extremities with adequate strength and full range of motion. LYMPHATICS: No significant lymphadenopathy is noted PSYCHIATRIC: Patient is mildly anxious Limitations: no limitations Course Vital Signs 06/08/22 12:08 Temperature 98.4 F Pulse Rate 56 L Respiratory 20 Rate Blood Pressure 121/74 O2 Sat by Pulse 99 Oximetry Medical Decision Making - Medical Decision Making EKG shows sinus bradycardia 52 bpm MO interval is 213 QRSs 129 QT intervals 465 QTC is 444. Patient's EKG shows no ST segment elevation or depression. Chest x-ray shows no acute abnormality. Patient states she still having some chest pain. [facility] admitted the patient I consulted cardiology. - Lab Data Result diagrams: 06/08/22 12:23 06/08/22 12:23 Lab Results 06/08/22 06/08/22 06/08/22 Range/Units 12:23 12: 12:23 WBC 5.7 (3.8-10.6) k/uL RBC 4.39 (3.80-5.40) m/uL Hgb 14.0 (11.4-16.0) gm/dL Hct 39.4 (34.0-46.0) % MCV 89.8 (80.0-100.0) fL MCH 31.8 (25.0-35.0) pg MCHC 35.5 (31.0-37.0) g/dL RDW 12.7 (11.5-15.5) % Plt Count 218 (150-450) k/uL MPV 7.2 Neutrophils % 63 % Lymphocytes % 28 % Monocytes % 5 % Eosinophils % 2 % Basophils % 1 % Neutrophils # 3.6 (1.3-7.7) k/uL Lymphocytes # 1.6 (1.0-4.8) k/uL Monocytes # 0.3 (0-1.0) k/uL Eosinophils # 0.1 (0-0.7) k/uL Basophils # 0.1 (0-0.2) k/uL D-Dimer 0.57 (<0.60) mg/L FEU Sodium 139 (137-145) mmol/L Potassium 3.7 (3.5-5.1) mmol/L Chloride 104 (98-107) mmol/L Carbon Dioxide 25 (22-30) mmol/L Anion Gap 10 mmol/L BUN 10 (7-17) mg/dL Creatinine 0.74 (0.52-1.04) mg/dL Est GFR (CKD-EPI)AfAm >90 (>60 ml/min/1.73 sqM) Est GFR (CKD-EPI)NonAf 83 (>60 ml/min/1.73 sqM) Glucose 100 H (74-99) mg/dL Calcium 9.2 (8.4-10.2) mg/dL Magnesium 2.2 (1.6-2.3) mg/dL Total Bilirubin 0.8 (0.2-1.3) mg/dL AST 19 (14-36) U/L ALT 15 (4-34) U/L Alkaline Phosphatase 76 (38-126) U/L Troponin I (0.000-0.034) ng/mL Total Protein 6.2 L (6.3-8.2) g/dL Albumin 4.0 (3.5-5.0) g/dL Lipase 102 (23-300) U/L 06/08/22 Range/Units 12:23 WBC (3.8-10.6) k/uL RBC (3.80-5.40) m/uL Hgb (11.4-16.0) gm/dL Hct (34.0-46.0) % MCV (80.0-100.0) fL MCH (25.0-35.0) pg MCHC (31.0-37.0) g/dL RDW (11.5-15.5) % Plt Count (150-450) k/uL MPV Neutrophils % % Lymphocytes % % Monocytes % % Eosinophils % % Basophils % % Neutrophils # (1.3-7.7) k/uL Lymphocytes # (1.0-4.8) k/uL Monocytes # (0-1.0) k/uL Eosinophils # (0-0.7) k/uL Basophils # (0-0.2) k/uL D-Dimer (<0.60) mg/L FEU Sodium (137-145) mmol/L Potassium (3.5-5.1) mmol/L Chloride (98-107) mmol/L Carbon Dioxide (22-30) mmol/L Anion Gap mmol/L BUN (7-17) mg/dL Creatinine (0.52-1.04) mg/dL Est GFR (CKD-EPI)AfAm (>60 ml/min/1.73 sqM) Est GFR (CKD-EPI)NonAf (>60 ml/min/1.73 sqM) Glucose (74-99) mg/dL Calcium (8.4-10.2) mg/dL Magnesium (1.6-2.3) mg/dL Total Bilirubin (0.2-1.3) mg/dL AST (14-36) U/L ALT (4-34) U/L Alkaline Phosphatase (38-126) U/L Troponin I <0.012 (0.000-0.034) ng/mL Total Protein (6.3-8.2) g/dL Albumin (3.5-5.0) g/dL Lipase (23-300) U/L Disposition Clinical Impression: Chest pain Disposition: ADMITTED IP TO THIS HOSP Referrals: Pantera Fuentes DO [Primary Care Provider] - 1-2 days Time of Disposition: 13:39
[2022-06-08 12:50] LABS: Basophils # (A) 0.1 k/uL (0-0.2); Basophils % (A) 1 %; Eosinophils # (A) 0.1 k/uL (0-0.7); Eosinophils % (A) 2 %; HCT 39.4 % (34.0-46.0); Lymphocytes # (A) 1.6 k/uL (1.0-4.8); Lymphocytes % (A) 28 %; MCH 31.8 pg (25.0-35.0); MCHC 35.5 g/dL (31.0-37.0); MCV 89.8 fL (80.0-100.0); Mean Platelet Volume 7.2; Monocytes # (A) 0.3 k/uL (0-1.0); Monocytes % (A) 5 %; Neutrophils # (A) 3.6 k/uL (1.3-7.7); Neutrophils % (A) 63 %; Platelet Count 218 k/uL (150-450); RBC 4.39 m/uL (3.80-5.40); RDW 12.7 % (11.5-15.5); WBC 5.7 k/uL (3.8-10.6)
--- NOTE | 2022-06-08 12:56 | XR ---
EXAMINATION TYPE: XR chest 2V DATE OF EXAM: 06/08/2022 COMPARISON: Chest x-ray September 02, 2021 HISTORY: Chest pain. TECHNIQUE: Frontal and lateral views of the chest are obtained. FINDINGS: There is mild chronic parenchymal change without suspicious focal air space opacity, pleur al effusion, or pneumothorax seen. The cardiac silhouette size is stable and within normal limits. Overlying EKG leads. The osseous structures are demineralized. IMPRESSION: Chronic changes without acute pulmonary process.
[2022-06-08 13:08] LABS: ALT 15 U/L (4-34); AST 19 U/L (14-36); African American GFR (CKD) >90 (>60 ml/min/1.73 sqM); Alkaline Phosphatase 76 U/L (38-126); Anion Gap 10 mmol/L; Blood Urea Nitrogen 10 mg/dL (7-17); Calcium 9.2 mg/dL (8.4-10.2); Carbon Dioxide 25 mmol/L (22-30); Chloride 104 mmol/L (98-107); Glucose 100 mg/dL (74-99); Lipase 102 U/L (23-300); Magnesium 2.2 mg/dL (1.6-2.3); Non-African American GFR(CKD) 83 (>60 ml/min/1.73 sqM); Potassium 3.7 mmol/L (3.5-5.1); Sodium 139 mmol/L (137-145); Total Bilirubin 0.8 mg/dL (0.2-1.3); Total Protein 6.2 g/dL (6.3-8.2)
[2022-06-08] MEDS ORDERED: NITROGLYCERIN SL TABS 0.4 MG TAB SUBLINGUAL PRN (13:39)
[2022-06-08] MEDS: NITROGLYCERIN OINT 1 INCH/GM PACKET TOPICAL SCH (17:56)
[2022-06-08] MEDS: LORazepam 0.5 MG TAB PO PRN (20:13)
[2022-06-08] MEDS: busPIRone HCl 5 MG TAB PO SCH (21:23)
[2022-06-09] MEDS: NITROGLYCERIN OINT 1 INCH/GM PACKET TOPICAL SCH ×2 (00:28→05:28)
[2022-06-09 08:40] VITALS: RESP 18; TEMP 98.2
[2022-06-09] MEDS ORDERED: ASPIRIN 325 MG TAB PO SCH (09:00)
[2022-06-09] MEDS ORDERED: HEPARIN SODIUM,PORCINE/PF 5,000 UNIT/0.5 ML SYRINGE SQ SCH (09:00)
[2022-06-09] MEDS ORDERED: FAMOTIDINE 20 MG/2 ML VIAL IV SCH (09:00)
[2022-06-09 10:26] LABS: Chol/HDL Ratio 2.59 Ratio; LDL Cholesterol,Calculated 73.3 mg/dL (0.0-131.0)
[2022-06-09] MEDS: LORazepam 0.5 MG TAB PO PRN (11:02)
[2022-06-09] MEDS: busPIRone HCl 5 MG TAB PO SCH (11:02)
--- NOTE | 2022-06-09 11:42 | P.CRDCN ---
History of Present Illness History of present illness: 72-year-old lady is admitted to hospital with an episode of chest pain. She describes as chest pressure mild intensity unrelated to exertion or hemoptysis with diaphoresis. There is no definite radiation to neck, back. She does not have any shortness of breath. Denies leg edema PND or orthopnea. There is no history of focal neurological deficits. She didn't episode of chest discomfort at the beginning of the year and had a stress echo that was unremarkable. At the time of my evaluation is completely comfortable at rest and is free of significant symptoms. EKG shows sinus rhythm without acute ST-T wave changes and cardiac enzymes have been negative. I'm going to obtain a 2-D echo on her tomorrow morning and schedule her for a stress echo if this is negative she can be discharged home and arrange follow-up with her environmental engineering aide. Constitutional: Denies chills. Denies fever. Eyes: Denies blurred vision. Denies pain. Ears, nose, mouth and throat: Denies headache. Denies sore throat. Cardiovascular: Significant for chest pain. Denies shortness of breath. Respiratory: Denies cough. Gastrointestinal: Denies abdominal pain. Denies diarrhea. Denies nausea. Denies vomiting. Musculoskeletal: Denies myalgias. Integumentary: Denies pruritus. Denies rash. Neurological: Denies numbness. Denies weakness. Psychiatric: Denies anxiety. Denies depression. Endocrine: Denies fatigue. Denies weight change. Genitourinary: Denies burning, hematuria, frequency of urination. Hematological: No anemia or excess bleeding. General: The patient is awake and alert, in no distress, and does not appear acutely ill. Skin: Skin is warm and dry and no rashes or lesions are noted. Eye: Pupils are equal, round and reactive to light, extra-ocular movements are intact; there is normal conjunctiva bilaterally. Ears, nose, mouth and throat: There are moist mucous membranes and no oral lesions. Neck: The neck is supple, there is no tenderness or JVD. Cardiovascular: [ There is a regular rate and rhythm.][ No murmur, rub or gallop is appreciated.] Respiratory: Lungs are clear to auscultation, respirations are non-labored, breath sounds are equal. Gastrointestinal: Soft, non-distended, non-tender abdomen without masses or organomegaly noted. There is no rebound or guarding present. Bowel sounds are unremarkable. Back: There is no tenderness to palpation in the midline. There is no obvious deformity. Musculoskeletal: Normal ROM, no tenderness, There is no pedal edema. There is no calf tenderness or swelling. Extremities:[ No edema.] Vascular: [Femoral pulse is normal.][ Posterior tibial pulses are normal .][Dorsalis pedis is palpable.] Neurological: CN II-XII intact. There are no obvious motor or sensory deficits. Speech is normal. Psychiatric: Cooperative, appropriate mood & affect, normal judgment. assessment and plan: Pericardial chest pain sinus bradycardia I will stop the Nitropaste resume beta leelee at half the dose echo and stress echo tomorrow morning the patient wishes to go home this can be arranged in the outpatient setting Past Medical History Past Medical History: Coronary Artery Disease (CAD), Chest Pain / Angina, CVA/TIA, Hypertension, Osteoarthritis (OA) Additional Past Medical History / Comment(s): TIA, colitis, uterine fibroids-has sx, rt eye start of cataract. "gets fluid around heart" History of Any Multi-Drug Resistant Organisms: None Reported Past Surgical History: Bowel Resection, Cholecystectomy, Heart Catheterization, Hysterectomy, Joint Replacement Additional Past Surgical History / Comment(s): L knee replacement, colonscopy December 2015, total hysterectomy. 3 surgeries to lt knee Past Anesthesia/Blood Transfusion Reactions: No Reported Reaction Past Psychological History: Anxiety Additional Psychological History / Comment(s): occational anxiety and takes ativan. Smoking Status: Never smoker Past Alcohol Use History: None Reported Additional Past Alcohol Use History / Comment(s): started smoking age 20(1970),quit 1999. a pack would last a month Past Drug Use History: None Reported - Past Family History Father Family Medical History: Diabetes Mellitus, Hypertension Mother Family Medical History: Cancer, Congestive Heart Failure (CHF) Brother(s) Family Medical History: Chest Pain / Angina, Coronary Artery Disease (CAD) Sister(s) Family Medical History: CVA/TIA Son(s) Family Medical History: Coronary Artery Disease (CAD) Medications and Allergies Home Medications Medication Instructions Recorded Confirmed Type LORazepam [Ativan] 0.5 mg PO TID@0700,1400,2200 05/06/15 06/08/22 History Metoprolol Tartrate [Lopressor] 100 mg PO HS 06/08/22 06/08/22 History busPIRone HCL 5 mg PO BID@1000,1800 06/08/22 06/08/22 History lisinopriL [Zestril] 20 mg PO DAILY 06/08/22 06/08/22 History Allergies Allergy/AdvReac Type Severity Reaction Status Date / Time codeine Allergy Rash/Hives Verified 06/08/22 13:45 Penicillins Allergy Rash/Hives Verified 06/08/22 13:45 pneumococcal vaccine Allergy Unknown Verified 06/08/22 13:45 Sulfa (Sulfonamide Allergy Nausea & Verified 06/08/22 13:45 Antibiotics) Vomiting & Diarrhea Tetanus Vaccines and Toxoid Allergy Unknown Verified 06/08/22 13:45 [Tetanus Vaccines & Toxoid] ketorolac [From Toradol] AdvReac Nausea & Verified 06/08/22 13:45 Vomiting Physical Exam Vitals: Vital Signs Temp Pulse Pulse Resp BP BP Pulse Ox 06/09/22 07:00 98.2 F 50 L 18 122/71 97 06/09/22 03:31 38 L 06/09/22 02:00 43 L 06/09/22 01:57 98.0 F 46 L 17 102/64 98 06/08/22 20:00 58 L 18 06/08/22 19:53 97.9 F 56 L 16 140/78 98 06/08/22 17:47 58 L 125/73 06/08/22 15:08 44 L 18 06/08/22 14:20 97.9 F 44 L 18 153/84 99 06/08/22 13:53 49 L 18 146/78 97 06/08/22 12:08 98.4 F 56 L 20 121/74 99 Intake and Output 06/08/22 06/09/22 06/09/22 22:59 06:59 14:59 Intake Total 740 Balance 740 Intake: Oral 740 Other: Voiding Method Toilet # Voids 1 Results 06/08/22 12:23 06/08/22 12:23 Cardiac Enzymes 06/08/22 06/08/22 06/08/22 Range/Units 12: 12: 16:04 AST 19 (14-36) U/L Troponin I <0.012 <0.012 (0.000-0.034) ng/mL 06/08/22 Range/Units 19:16 AST (14-36) U/L Troponin I <0.012 (0.000-0.034) ng/mL Lipids 06/09/22 Range/Units 05:45 Triglycerides 121.00 (0.00-149.00) mg/dL Cholesterol 159.00 (0.00-200.00) mg/dL HDL Cholesterol 61.50 H (40.00-60.00) mg/dL Cholesterol/HDL Ratio 2.59 Ratio CBC 06/08/22 Range/Units 12:23 WBC 5.7 (3.8-10.6) k/uL RBC 4.39 (3.80-5.40) m/uL Hgb 14.0 (11.4-16.0) gm/dL Hct 39.4 (34.0-46.0) % Plt Count 218 (150-450) k/uL Comprehensive Metabolic Panel 06/08/22 Range/Units 12:23 Sodium 139 (137-145) mmol/L Potassium 3.7 (3.5-5.1) mmol/L Chloride 104 (98-107) mmol/L Carbon Dioxide 25 (22-30) mmol/L BUN 10 (7-17) mg/dL Creatinine 0.74 (0.52-1.04) mg/dL Glucose 100 H (74-99) mg/dL Calcium 9.2 (8.4-10.2) mg/dL AST 19 (14-36) U/L ALT 15 (4-34) U/L Alkaline Phosphatase 76 (38-126) U/L Total Protein 6.2 L (6.3-8.2) g/dL Albumin 4.0 (3.5-5.0) g/dL Current Medications Generic Name Dose Route Start Last Admin Trade Name Freq PRN Reason Stop Dose Admin Aspirin 325 mg 06/09/22 09:00 06/09/22 10:03 Aspirin 325 Mg Tab PO 325 mg DAILY KATE Administration Buspirone HCl 5 mg 06/08/22 21:00 06/09/22 11:02 Buspirone Hcl 5 Mg Tab PO 5 mg BID@1000,1800 KATE Administration Famotidine 20 mg 06/09/22 09:00 06/09/22 10:03 Famotidine 20 Mg/2 Ml Vial IV Not Given Q12HR KATE Heparin Sodium (Porcine) 5,000 unit 06/09/22 09:00 06/09/22 10:03 Heparin Sodium,Porcine/Pf 5,000 Unit/0.5 Ml Syringe SQ 5,000 unit Q12HR KATE Administration Lorazepam 0.5 mg 06/08/22 18:01 06/09/22 11:02 Lorazepam 0.5 Mg Tab PO 0.5 mg BID PRN Administration Anxiety Nitroglycerin 0.4 mg 06/08/22 13:39 Nitroglycerin Sl Tabs 0.4 Mg Tab SUBLINGUAL Q5M PRN Chest Pain Nitroglycerin 1 inch 06/08/22 18:00 06/09/22 05:28 Nitroglycerin Oint 1 Inch/Gm Packet TOPICAL Not Given Q6HR KATE Intake and Output 06/08/22 06/09/22 06/09/22 22:59 06:59 14:59 Intake Total 740 Balance 740 Intake: Oral 740 Other: Voiding Method Toilet # Voids 1 06/08/22 12:23 06/08/22 12:23
--- NOTE | 2022-06-09 12:49 | P.HPIM ---
History of Present Illness This is a pleasant 72 years old female with multiple medical problems as below patient presents because of chest pain Patient presents because of central chest pain for 2 weeks about it/10 in severity, non-radiating felt like heaviness sitting on her chest associated with dyspnea for 10 minutes. Currently chest pain has completely resolved. No dyspnea. No other complaints patient feels she is back to her baseline No vomiting diarrhea, no dysuria or urgency, no headache or dizziness or weakness or numbness Vitals neck stable but right showing bradycardia, 56-58 when awake goes down to 38 at sleep. Blood pressure 102/64. Patient has unremarkable CBC BMP and liver enzymes. 3 troponins are negative less than 0.012. D-dimer is negative at 0.57 EKG showing sinus bradycardia at 52 Chest x-ray: No acute process. But there is a chronic changes Also her heart rate dropped to 38 during night, patient felt some burning in her chest that she was going to pass out. This morning her heart rate is improved and all her symptoms are resolved Patient was started with aspirin and admitted with a cardiology consult Review of Systems Review of systems CONSTITUTIONAL: No fever, no malaise, no fatigue. HEENT: No recent visual problems or hearing problems. Denied any sore throat. CARDIOVASCULAR: No orthopnea, PND, no palpitations, no syncope. PULMONARY: No shortness of breath, no cough, no hemoptysis. GASTROINTESTINAL: No diarrhea, no nausea, no vomiting, no abdominal pain. Normoa ctive bowel sounds. NEUROLOGICAL: No headaches, no weakness, no numbness. HEMATOLOGICAL: Denies any bleeding or petechiae. GENITOURINARY: Denies any burning micturition, frequency, or urgency. MUSCULOSKELETAL/RHEUMATOLOGICAL: Denies any joint pain, swelling, or any muscle pain. ENDOCRINE: Denies any polyuria or polydipsia. Past Medical History Past Medical History: Coronary Artery Disease (CAD), Chest Pain / Angina, CVA/TIA, Hypertension, Osteoarthritis (OA) Additional Past Medical History / Comment(s): TIA, colitis, uterine fibroids-has sx, rt eye start of cataract. "gets fluid around heart" History of Any Multi-Drug Resistant Organisms: None Reported Past Surgical History: Bowel Resection, Cholecystectomy, Heart Catheterization, Hysterectomy, Joint Replacement Additional Past Surgical History / Comment(s): L knee replacement, colonscopy December 2015, total hysterectomy. 3 surgeries to lt knee Past Anesthesia/Blood Transfusion Reactions: No Reported Reaction Past Psychological History: Anxiety Additional Psychological History / Comment(s): occational anxiety and takes ativan. Smoking Status: Never smoker Past Alcohol Use History: None Reported Additional Past Alcohol Use History / Comment(s): started smoking age 20(1969),quit 1999. a pack would last a month Past Drug Use History: None Reported - Past Family History Father Family Medical History: Diabetes Mellitus, Hypertension Mother Family Medical History: Cancer, Congestive Heart Failure (CHF) Brother(s) Family Medical History: Chest Pain / Angina, Coronary Artery Disease (CAD) Sister(s) Family Medical History: CVA/TIA Son(s) Family Medical History: Coronary Artery Disease (CAD) Medications and Allergies Home Medications Medication Instructions Recorded Confirmed Type LORazepam [Ativan] 0.5 mg PO TID@0700,1400,2200 05/06/15 06/08/22 History busPIRone HCL 5 mg PO BID@1000,1800 06/08/22 06/08/22 History lisinopriL [Zestril] 20 mg PO DAILY 06/08/22 06/08/22 History Aspirin 81 mg PO DAILY #30 tab 06/09/22 Rx Aspirin 325 mg PO DAILY #30 tab 06/09/22 Rx Metoprolol Succinate (ER) [Toprol 25 mg PO DAILY #30 tab 06/09/22 Rx XL] Allergies Allergy/AdvReac Type Severity Reaction Status Date / Time codeine Allergy Rash/Hives Verified 06/08/22 13:45 Penicillins Allergy Rash/Hives Verified 06/08/22 13:45 pneumococcal vaccine Allergy Unknown Verified 06/08/22 13:45 Sulfa (Sulfonamide Allergy Nausea & Verified 06/08/22 13:45 Antibiotics) Vomiting & Diarrhea Tetanus Vaccines and Toxoid Allergy Unknown Verified 06/08/22 13:45 [Tetanus Vaccines & Toxoid] ketorolac [From Toradol] AdvReac Nausea & Verified 06/08/22 13:45 Vomiting Physical Exam Vitals: Vital Signs Temp Pulse Pulse Resp BP BP Pulse Ox 06/09/22 03:31 38 L 06/09/22 02:00 43 L 06/09/22 01:57 98.0 F 46 L 17 102/64 98 06/08/22 20:00 58 L 18 06/08/22 19:53 97.9 F 56 L 16 140/78 98 06/08/22 17:47 58 L 125/73 06/08/22 15:08 44 L 18 06/08/22 14:20 97.9 F 44 L 18 153/84 99 06/08/22 13:53 49 L 18 146/78 97 06/08/22 12:08 98.4 F 56 L 20 121/74 99 Intake and Output 06/08/22 06/08/22 06/09/22 14:59 22:59 06:59 Intake Total 740 Balance 740 Intake: Oral 740 Other: Voiding Method Toilet # Voids 1 Weight 61.235 kg GENERAL: The patient is alert and oriented x3, not in any acute distress. Well developed, well nourished. HEENT: Pupils are round and equally reacting to light. EOMI. No scleral icterus. No conjunctival pallor. Normocephalic, atraumatic. No pharyngeal erythema. No thyromegaly. CARDIOVASCULAR: S1 and S2 present. No murmurs, rubs, or gallops. PULMONARY: Chest is clear to auscultation, no wheezing or crackles. ABDOMEN: Soft, nontender, nondistended, normoactive bowel sounds. No palpable organomegaly. MUSCULOSKELETAL: No joint swelling or deformity. EXTREMITIES: No cyanosis, clubbing, or pedal edema. NEUROLOGICAL: Gross neurological examination did not reveal any focal deficits. SKIN: No rashes. no petechiae. Results CBC & Chem 7: 06/08/22 12:23 06/08/22 12:23 Labs: Abnormal Lab Results - Last 24 Hours (Table) 06/08/22 Range/Units 12:23 Glucose 100 H (74-99) mg/dL Total Protein 6.2 L (6.3-8.2) g/dL Thrombosis Risk Factor Assmnt - Choose All That Apply Any of the Below Risk Factors Present?: No Other Risk Factors: Yes Each Risk Factor Represents 3 Points: Age 75 years or older Thrombosis Risk Factor Assessment Total Risk Factor Score: 3 Thrombosis Risk Factor Assessment Level: Moderate Risk Assessment and Plan Assessment: Chest pain rule out cardiac causes. D-dimer is normal Bradycardia secondary to excessive beta leelee dose and Hypertension History of coronary artery disease History of CVA/TIA History of osteoarthritis Plan: This is a pleasant 72 years old female who presents with chest pain. Continue with aspirin Cardiology consult, evaluated the patient and cleared her for discharge because the patient wanted to do the stress test recommended by linen checker as an outpatient and Dr. Peters agreed for that per staff. Per linen checker recommended to give metoprolol 50 acid of 500 of her heart rate was 60, however her heart rate this morning wasn't 50s, therefore instructed the patient to lower the dose to 25 mg daily and a new prescription is provided for her regarding this Boat Master recommended to continue lisinopril Also I recommended baby aspirin 81 mg, patient says that she has this medication at home already. However prescription is provided for for her Patient was cleared for discharge by linen checker. Patient was eager to go home today. Currently The patient is as symptomatic Problems and management plan were discussed with the patient and he verbalized understanding and acceptance Patient was found stable and can be discharged home in guarded prognosis however he needs follow-up as an outpatient. Patient was instructed to follow up with PCP Dr. Fuentes within one week and patient agrees Patient was instructed to follow up with her linen checker Dr. Duran in one week for outpatient stress test and she verbalized understanding and acceptance to make that appointment as today is week Time spent more than 35 minutes
[2022-06-09 13:23] VITALS: BP 137/71
[2022-06-09 14:43] VITALS: PULSE 59
[2022-06-09] MEDS ORDERED: lisinopriL 20 MG TAB PO SCH (14:45)
== END 2022-06-09 15:37 | disposition home or self-care (01) ==
LOC: EC 12:03 → 6NMEDSUR 13:45
PROVIDERS: ADMIT Hospitalist; ATTEND Hospitalist
DX: R07.89 Other chest pain (principal); R00.1 Bradycardia, unspecified; I95.9 Hypotension, unspecified; F41.9 Anxiety disorder, unspecified; I25.10 Atherosclerotic heart disease of native coronary artery without angina pectoris; I10 Essential (primary) hypertension; M19.90 Unspecified osteoarthritis, unspecified site; Z86.73 Personal history of transient ischemic attack (TIA), and cerebral infarction without residual deficits; Z87.891 Personal history of nicotine dependence; Z79.82 Long term (current) use of aspirin; Z79.899 Other long term (current) drug therapy; Z88.0 Allergy status to penicillin; Z88.2 Allergy status to sulfonamides; Z88.5 Allergy status to narcotic agent; Z82.49 Family history of ischemic heart disease and other diseases of the circulatory system; Z82.3 Family history of stroke
CPT/HCPCS: 96372; 99285; 36415; 93005; 85379; 80061; 80053; 83690; 83735; 84484; 85025; 71046; G0378 ×2; J1644

== ENCOUNTER 2022-11-15 07:54 | Inpatient (IN) | payer MEDICARE, OTHER ==
[2022-11-15] MEDS ORDERED: ASPIRIN 81 MG PO STA ×2 (08:11→08:33)
[2022-11-15 08:35] LABS: Basophils # (A) 0.1 k/uL (0-0.2); Basophils % (A) 1 %; Eosinophils # (A) 0.1 k/uL (0-0.7); Eosinophils % (A) 2 %; HCT 38.4 % (34.0-46.0); HGB 13.6 gm/dL (11.4-16.0); Lymphocytes # (A) 2.1 k/uL (1.0-4.8); Lymphocytes % (A) 36 %; MCH 31.5 pg (25.0-35.0); MCHC 35.4 g/dL (31.0-37.0); MCV 89.2 fL (80.0-100.0); Mean Platelet Volume 6.8; Monocytes # (A) 0.3 k/uL (0-1.0); Monocytes % (A) 6 %; Neutrophils # (A) 3.1 k/uL (1.3-7.7); Neutrophils % (A) 54 %; Platelet Count 238 k/uL (150-450); RBC 4.31 m/uL (3.80-5.40); RDW 12.7 % (11.5-15.5); WBC 5.7 k/uL (3.8-10.6)
--- NOTE | 2022-11-15 08:49 | XR ---
EXAMINATION TYPE: XR chest 2V DATE OF EXAM: 11/15/2022 COMPARISON: 06/08/2022 HISTORY: Shortness of breath TECHNIQUE: Frontal and lateral views of the chest are obtained. FINDINGS: Scattered senescent parenchymal changes noted. Hyperinflation compatible with COPD. No evidence for infiltrate. No evidence for atelectasis. Heart size is stable. Mediastinal structures are stable and grossly unremarkable. No evidence for hilar prominence. Degenerative changes dorsal spine. IMPRESSION: 1. No evidence for acute pulmonary disease.
[2022-11-15 08:51] LABS: Partial Thromboplastin Time 25.4 sec (22.0-30.0); Prothrombin Time 10.2 sec (9.0-12.0)
[2022-11-15 08:55] LABS: ALT 15 U/L (4-34); AST 20 U/L (14-36); African American GFR (CKD) >90 (>60 ml/min/1.73 sqM); Albumin 3.8 g/dL (3.5-5.0); Alkaline Phosphatase 66 U/L (38-126); Anion Gap 6 mmol/L; Blood Urea Nitrogen 9 mg/dL (7-17); Calcium 9.2 mg/dL (8.4-10.2); Carbon Dioxide 28 mmol/L (22-30); Chloride 105 mmol/L (98-107); Glucose 88 mg/dL (74-99); Magnesium 2.3 mg/dL (1.6-2.3); Non-African American GFR(CKD) 86 (>60 ml/min/1.73 sqM); Potassium 3.3 mmol/L (3.5-5.1); Sodium 139 mmol/L (137-145); Total Bilirubin 0.8 mg/dL (0.2-1.3); Total Protein 6.2 g/dL (6.3-8.2)
--- NOTE | 2022-11-15 09:00 | ED ---
Chest Pain HPI - General Chief Complaint: Chest Pain Stated Complaint: chest pain Time Seen by Provider: 11/15/22 08:00 Source: patient, RN notes reviewed Mode of arrival: wheelchair Limitations: no limitations - History of Present Illness Initial Comments: 72-year-old female presents emergency Department chief complaint of chest pain. Patient states he woke up around 2 AM. Patient states it's centralized pain mild radiation. Patient states that she's had a recent echocardiogram showing some mild regurgitation. Patient denies any prior cardiac stents. Patient does have a history of hypertension. Patient was recently stopped off her metoprolol as she had bradycardia. Patient denies any leg pain like swelling. No history DVT or PE. She was a former smoker years ago. He states does feel slightly short of breath. - Related Data Home Medications Medication Instructions Recorded Confirmed LORazepam [Ativan] 0.5 mg PO TID@0700,1400,2200 05/06/15 06/08/22 busPIRone HCL 5 mg PO BID@1000,1800 06/08/22 06/08/22 lisinopriL [Zestril] 20 mg PO DAILY 06/08/22 06/08/22 Previous Rx's Medication Instructions Recorded Aspirin 81 mg PO DAILY #30 tab 06/09/22 Metoprolol Succinate (ER) [Toprol 25 mg PO DAILY #30 tab 06/09/22 XL] Allergies Allergy/AdvReac Type Severity Reaction Status Date / Time codeine Allergy Rash/Hives Verified 11/15/22 07:58 Penicillins Allergy Rash/Hives Verified 11/15/22 07:58 pneumococcal vaccine Allergy Unknown Verified 11/15/22 07:58 Sulfa (Sulfonamide Allergy Nausea & Verified 11/15/22 07:58 Antibiotics) Vomiting & Diarrhea Tetanus Vaccines and Toxoid Allergy Unknown Verified 11/15/22 07:58 [Tetanus Vaccines & Toxoid] ketorolac [From Toradol] AdvReac Nausea & Verified 11/15/22 07:58 Vomiting Review of Systems ROS Statement: Those systems with pertinent positive or pertinent negative responses have been documented in the HPI. ROS Other: All systems not noted in ROS Statement are negative. EKG Findings - EKG Comments: EKG Findings:: EKG performed at 8:10 sinus rhythm with a rate of 64 OK 200 QRS 110 QT/QTc 407/416 - EKG Results: EKG: interpreted by JOHN Past Medical History Past Medical History: Coronary Artery Disease (CAD), Chest Pain / Angina, CVA/TIA, Hypertension, Osteoarthritis (OA) Additional Past Medical History / Comment(s): TIA, colitis, uterine fibroids-has sx, rt eye start of cataract. "gets fluid around heart" History of Any Multi-Drug Resistant Organisms: None Reported Past Surgical History: Bowel Resection, Cholecystectomy, Heart Catheterization, Hysterectomy, Joint Replacement Additional Past Surgical History / Comment(s): L knee replacement, colonscopy December 2015, total hysterectomy. 3 surgeries to lt knee Past Anesthesia/Blood Transfusion Reactions: No Reported Reaction Past Psychological History: Anxiety Smoking Status: Never smoker Past Alcohol Use History: None Reported Past Drug Use History: None Reported - Past Family History Father Family Medical History: Diabetes Mellitus, Hypertension Mother Family Medical History: Cancer, Congestive Heart Failure (CHF) Brother(s) Family Medical History: Chest Pain / Angina, Coronary Artery Disease (CAD) Sister(s) Family Medical History: CVA/TIA Son(s) Family Medical History: Coronary Artery Disease (CAD) General Exam Limitations: no limitations General appearance: alert, in no apparent distress Head exam: Present: atraumatic, normocephalic, normal inspection Eye exam: Present: normal appearance, PERRL, EOMI. Absent: scleral icterus, conjunctival injection, periorbital swelling ENT exam: Present: normal exam, normal oropharynx, mucous membranes moist Neck exam: Present: normal inspection, full ROM. Absent: tenderness, meningismus, lymphadenopathy Respiratory exam: Present: normal lung sounds bilaterally. Absent: respiratory distress, wheezes, rales, rhonchi, stridor Cardiovascular Exam: Present: regular rate, normal rhythm, normal heart sounds. Absent: systolic murmur, diastolic murmur, rubs, gallop, clicks Neurological exam: Present: alert Course Vital Signs 11/15/22 07:55 Temperature 97.6 F Pulse Rate 68 Respiratory 18 Rate Blood Pressure 182/92 O2 Sat by Pulse 100 Oximetry Chest Pain MDM - MDM Was pt. sent in by a medical professional or institution (, PA, COASTAL/HARBOR DEFENSE OFFICER, urgent care, hospital, or shelter...) When possible be specific @ -No Did you speak to anyone other than the patient for history (EMS, parent, family, police, friend...)? What history was obtained from this source @ -No Did you review nursing and triage notes (agree or disagree)? Why? @ -I reviewed and agree with nursing and triage notes Were old charts reviewed (outside hosp., previous admission, EMS record, old EKG, old radiological studies, urgent care reports/EKG's, shelter records)? Report findings @ -Prior labs, EKG, cardiology evaluation Differential Diagnosis (chest pain, altered mental status, abdominal pain women, abdominal pain men, vaginal bleeding, weakness, fever, dyspnea, syncope, headache, dizziness, GI bleed, back pain, seizure, CVA, palpatations, mental health, musculoskeletal)? @ -Differential Chest Pain: Stable Angina, Unstable Angina, STEMI, NSTEMI Aortic Dissection, Pneumothorax, Musculoskeletal, Esophageal Spasm GERD, Cholecystitis, Pancreatitis, Zoster, this is not meant to be an all-inclusive list. EKG interpreted by me (3pts min.). @ -As above X-rays interpreted by me (1pt min.). @ -Chest x-ray shows no acute process CT interpreted by me (1pt min.). @ -None done U/S interpreted by me (1pt. min.). @ -None done What testing was considered but not performed or refused? (CT, X-rays, U/S, labs)? Why? @ -Consider CT though patient had recent CT of her chest What meds were considered but not given or refused? Why? @ -None Did you discuss the management of the patient with other professionals (david trevino i.e. , PA, COASTAL/[employer] DEFENSE OFFICER, lab, RT, psych nurse, manager social services, metal cleaner, teacher, aboriginal home school liaison officer, case fitter)? Give summary @ -[facility] for admission with cardiac consult Was smoking cessation discussed for >3mins.? @ -No Was critical care preformed (if so, how long)? @ -No Were there social determinants of health that impacted care today? How? (Homelessness, low income, unemployed, alcoholism, drug addiction, transportation, low edu. Level, literacy, decrease access to med. care, long-term, r ehab)? @ -No Was there de-escalation of care discussed even if they declined (Discuss DNR or withdrawal of care, Hospice)? DNR status @ -No What co-morbidities impacted this encounter? (DM, HTN, Smoking, COPD, CAD, Cancer, CVA, ARF, Chemo, Hep., AIDS, mental health diagnosis, sleep apnea, morbid obesity)? @ -Hypertension Was patient admitted / discharged? Hospital course, mention meds given and route, prescriptions, significant lab abnormalities, going to OR and other pertinent info. @ -Admitted patient has chest pain, patient has multiple cardiac risk factors. Patient will be admitted for cardiac rule out. Undiagnosed new problem with uncertain prognosis? @ -No Drug Therapy requiring intensive monitoring for toxicity (Heparin, Nitro, Insulin, Cardizem)? @ -No Were any procedures done? @ -No Diagnosis/symptom? @ -Chest pain Acute, or Chronic, or Acute on Chronic? @ -Acute Uncomplicated (without systemic symptoms) or Complicated (systemic symptoms)? @ -Uncomplicated Side effects of treatment? @ -No Exacerbation, Progression, or Severe Exacerbation? @ -No Poses a threat to life or bodily function? How? (Chest pain, [place], OR, pneumonia, PE, COPD, DKA, ARF, appy, cholecystitis, CVA, Diverticulitis, Homicidal, Suicidal, threat to staff... and all critical care pts) @ -Yes patient has chest pain may be cardiac arrest. Disposition Clinical Impression: Chest pain Disposition: ADMITTED IP TO THIS HOSP Condition: Fair Referrals: Pantera Fuentes DO [Primary Care Provider] - 1-2 days Time of Disposition: 10:08
[2022-11-15] MEDS ORDERED: NITROGLYCERIN SL TABS 0.4 MG TAB SUBLINGUAL PRN (10:08)
[2022-11-15] MEDS ORDERED: MORPHINE SULFATE 4 MG/ML SYRINGE IVP STA (10:09)
[2022-11-15] MEDS ORDERED: ONDANSETRON 4 MG/2 ML VIAL IVP STA (12:07)
[2022-11-15] MEDS ORDERED: busPIRone HCl 5 MG TAB PO PRN (14:12)
[2022-11-15] MEDS: LORazepam 1 MG TAB PO PRN (20:35)
[2022-11-16] MEDS: LORazepam 1 MG TAB PO PRN ×2 (06:46→21:17)
[2022-11-16] MEDS: lisinopriL 20 MG TAB PO SCH (08:39)
[2022-11-16] MEDS ORDERED: NITROGLYCERIN EXTENDED RELEASE 2.5 MG CAPSULE.ER PO SCH (09:00)
[2022-11-16] MEDS ORDERED: ASPIRIN 325 MG TAB PO SCH (09:00)
[2022-11-16] MEDS: traMADol 50 MG TAB PO PRN ×2 (09:23→19:48)
--- NOTE | 2022-11-16 09:27 | XR ---
EXAMINATION TYPE: XR shoulder complete RT DATE OF EXAM: 11/16/2022 CLINICAL HISTORY: Pain TECHNIQUE: Three views of the right shoulder are obtained. COMPARISON: None. FINDINGS: Osseous structures somewhat demineralized. There is no acute fracture/dislocation evident in the right shoulder. Mild to moderate narrowing and spurring at the acromioclavicular joint. Glenoh umeral joint is preserved. The visualized ribs are intact and unremarkable. IMPRESSION: As above.
[2022-11-16 09:34] LABS: Chol/HDL Ratio 2.84 Ratio; LDL Cholesterol,Calculated 82.1 mg/dL (0.0-131.0)
[2022-11-16 10:22] LABS: African American GFR (CKD) 76 (>60 ml/min/1.73 sqM); Anion Gap 4 mmol/L; Blood Urea Nitrogen 10 mg/dL (7-17); Carbon Dioxide 30 mmol/L (22-30); Chloride 105 mmol/L (98-107); Glucose 77 mg/dL (74-99); Non-African American GFR(CKD) 66 (>60 ml/min/1.73 sqM); Potassium 3.5 mmol/L (3.5-5.1); Sodium 139 mmol/L (137-145)
--- NOTE | 2022-11-16 11:16 | P.CRDCN ---
History of Present Illness Consult date: 11/16/22 Consult reason: chest pain History of present illness: The patient is a 72-year-old female who presents to the hospital with epigastric discomfort. The patient states she was awoken from her sleep with epigastric pain which radiated to both the left and the right anterior chest grayson. She states there was also some radiation into her right shoulder as well as to her bilateral legs. She states she did have an upset stomach at this time but does not report any significant abdominal cramping or pain. She states this pain lasted for approximately 10 minutes then resolved. She states it was not reproducible with physical activity. No recurrence in the pain since coming to the hospital. DIAGNOSTICS: EKG shows sinus mechanism without acute ST or T-wave abnormalities Chest x-ray shows no acute cardiopulmonary disease. Hyperinflation compatible with COPD. Shoulder x-ray shows mild to moderate narrowing and spurring at that acromiocla vicular joint Lab data: WBC 5.7, hemoglobin 13.6, hematocrit 38.4, platelet 238, d-dimer 0.33, sodium 139, potassium 3.5, BUN 10, creatinine 0.89, troponins negative 3, BNP 139, fasting lipid shows triglycerides at 124, LDL 82, HDL 58 REVIEW OF SYSTEMS: No fever or chills. No cough or expectoration. No diaphoresis. Patient denies headache, dizziness, blurred vision, double vision. Patient denies any stomach discomfort. No nausea, vomiting. No hematochezia. No hematemesis. Denies any black stools or blood in his stools. Denies dysuria or hematuria. No muscle weakness or numbness. No current chest pain or chest pressure. No difficulty breathing. PHYSICAL EXAMINATION: This is a 72-year-old female in no apparent distress at the time of my examination. HEENT: Head is atraumatic, normocephalic. Pupils are equal, round. Sclerae anicteric. Conjunctivae are clear. Mucous membranes of the mouth are moist. Neck is supple. There is no jugular venous distention. No carotid bruit is heard. CHEST EXAMINATION: Lungs are clear to auscultation. No chest wall tenderness is noted on palpation or with deep breathing. HEART EXAMINATION: Heart regular rate and rhythm. S1, S2 heard. No murmurs, gal lops or rub. ABDOMEN: Soft, nontender. Bowel sounds are heard. No organomegaly noted. EXTREMITIES: 2+ peripheral pulses with no evidence of peripheral edema and no calf tenderness noted. NEUROLOGIC EXAMINATION: Patient is awake, alert and oriented x3. FINAL ASSESSMENT AND PLAN: Epigastric discomfort No indication of acute coronary syndrome, recent stress testing shows no evidence of ischemia History of hypertension PLAN: Recommend ambulation around the unit Start H2 leelee If patient remains chest pain-free after ambulation she may be discharged for outpatient follow-up I am dictating on behalf of Dr Diego Riley's history/physical and assessment/plan. Past Medical History Past Medical History: Coronary Artery Disease (CAD), Chest Pain / Angina, CVA/TIA, Hypertension, Osteoarthritis (OA) Additional Past Medical History / Comment(s): TIA, colitis, uterine fibroids-has sx, rt eye start of cataract. "gets fluid around heart" History of Any Multi-Drug Resistant Organisms: None Reported Past Surgical History: Bowel Resection, Cholecystectomy, Heart Catheterization, Hysterectomy, Joint Replacement Additional Past Surgical History / Comment(s): L knee replacement, colonscopy December 2015, total hysterectomy. 3 surgeries to lt knee Past Anesthesia/Blood Transfusion Reactions: No Reported Reaction Past Psychological History: Anxiety Additional Psychological History / Comment(s): occational anxiety and takes ativan. Smoking Status: Never smoker Past Alcohol Use History: None Reported Additional Past Alcohol Use History / Comment(s): started smoking age 20(1970),quit 1999. a pack would last a month Past Drug Use History: None Reported - Past Family History Father Family Medical History: Diabetes Mellitus, Hypertension Mother Family Medical History: Cancer, Congestive Heart Failure (CHF) Brother(s) Family Medical History: Chest Pain / Angina, Coronary Artery Disease (CAD) Sister(s) Family Medical History: CVA/TIA Son(s) Family Medical History: Coronary Artery Disease (CAD) Medications and Allergies Home Medications Medication Instructions Recorded Confirmed Type LORazepam [Ativan] 1 mg PO BID PRN 05/06/15 11/15/22 History busPIRone HCL 5 mg PO BID PRN 06/08/22 11/15/22 History lisinopriL [Zestril] 20 mg PO DAILY 06/08/22 11/15/22 History Nitroglycerin 2.5 mg PO DAILY 11/15/22 11/15/22 History Allergies Allergy/AdvReac Type Severity Reaction Status Date / Time codeine Allergy Rash/Hives Verified 11/15/22 11:44 Penicillins Allergy Rash/Hives Verified 11/15/22 11:44 pneumococcal vaccine Allergy Unknown Verified 11/15/22 11:44 Sulfa (Sulfonamide Allergy Nausea & Verified 11/15/22 11:44 Antibiotics) Vomiting & Diarrhea Tetanus Vaccines and Toxoid Allergy Unknown Verified 11/15/22 11:44 [Tetanus Vaccines & Toxoid] ketorolac [From Toradol] AdvReac Nausea & Verified 11/15/22 11:44 Vomiting Physical Exam Vitals: Vital Signs Temp Pulse Pulse Resp BP BP BP 11/16/22 07:00 97.7 F 52 L 16 161/85 11/16/22 01:39 97.5 F L 47 L 15 123/76 11/15/22 18:47 97.6 F 60 20 154/82 11/15/22 17:28 57 L 18 162/87 11/15/22 12:36 52 L 18 156/92 Pulse Ox 11/16/22 07:00 98 11/16/22 01:39 98 11/15/22 18:47 100 11/15/22 17:28 98 11/15/22 12:36 100 Intake and Output 11/15/22 11/16/22 11/16/22 22:59 06:59 14:59 Intake Total 118 Balance 118 Intake: Oral 118 Other: Voiding Method Toilet # Voids 1 1 Weight 61.235 kg Results 11/15/22 08:20 11/16/22 09:40 Cardiac Enzymes 11/15/22 11/15/22 Range/Units 10:25 12:56 Troponin I <0.012 <0.012 (0.000-0.034) ng/mL Lipids 11/15/22 Range/Units 19:01 Triglycerides 124.00 (0.00-149.00) mg/dL Cholesterol 165.00 (0.00-200.00) mg/dL HDL Cholesterol 58.10 (40.00-60.00) mg/dL Cholesterol/HDL Ratio 2.84 Ratio Comprehensive Metabolic Panel 11/16/22 Range/Units 09:40 Sodium 139 (137-145) mmol/L Potassium 3.5 (3.5-5.1) mmol/L Chloride 105 (98-107) mmol/L Carbon Dioxide 30 (22-30) mmol/L BUN 10 (7-17) mg/dL Creatinine 0.89 (0.52-1.04) mg/dL Glucose 77 (74-99) mg/dL Calcium 9.0 (8.4-10.2) mg/dL Current Medications Generic Name Dose Route Start Last Admin Trade Name Freq PRN Reason Stop Dose Admin Buspirone HCl 5 mg 11/15/22 14:12 Buspirone Hcl 5 Mg Tab PO BID PRN Anxiety Famotidine 20 mg 11/16/22 21:00 Famotidine 20 Mg Tab PO BID KATE Lisinopril 20 mg 11/16/22 09:00 11/16/22 08:39 Lisinopril 20 Mg Tab PO 20 mg DAILY KATE Administration Lorazepam 1 mg 11/15/22 14:12 11/16/22 06:46 Lorazepam 1 Mg Tab PO 1 mg BID PRN Administration Anxiety Nitroglycerin 0.4 mg 11/15/22 10:08 Nitroglycerin Sl Tabs 0.4 Mg Tab SUBLINGUAL Q5M PRN Chest Pain Tramadol HCl 50 mg 11/16/22 09:02 11/16/22 09:23 Tramadol 50 Mg Tab PO 50 mg QID PRN Administration Pain Intake and Output 11/15/22 11/16/22 11/16/22 22:59 06:59 14:59 Intake Total 118 Balance 118 Intake: Oral 118 Other: Voiding Method Toilet # Voids 1 1 Weight 61.235 kg 11/15/22 08:20 11/16/22 09:40
[2022-11-16] MEDS: ATORVASTATIN 10 MG TAB PO SCH (12:26)
--- NOTE | 2022-11-16 18:16 | P.HPIM ---
History of Present Illness H&P Date: 11/15/22 Chief Complaint: Chest pain 72-year-old female presents emergency Department chief complaint of chest pain. Patient states he woke up around 2 AM. Patient states it's centralized pain mild radiation. Patient states that she's had a recent echocardiogram showing some mild regurgitation. Patient denies any prior cardiac stents. Patient does have a history of hypertension. Patient was recently stopped off her metoprolol as she had bradycardia. Patient denies any leg pain like swelling. No history DVT or PE. She was a former smoker years ago. He states does feel slightly short of breath. Blood work completed in ED reveals WBC 5.7, hemoglobin of 13.6 and platelet count of 238, sodium 139, potassium 3.3 BUN/creatinine of 9/0.7 to Review of Systems REVIEW OF SYSTEMS: CONSTITUTIONAL: No fever, no malaise, no fatigue. HEENT: No recent visual problems or hearing problems. Denied any sore throat. CARDIOVASCULAR: No chest pain, orthopnea, PND, no palpitations, no syncope. PULMONARY: No shortness of breath, no cough, no hemoptysis. GASTROINTESTINAL: No diarrhea, no nausea, no vomiting, no abdominal pain. NEUROLOGICAL: No headaches, no weakness, no numbness. HEMATOLOGICAL: Denies any bleeding or petechiae. GENITOURINARY: Denies any burning micturition, frequency, or urgency. MUSCULOSKELETAL/RHEUMATOLOGICAL: Denies any joint pain, swelling, or any muscle pain. ENDOCRINE: Denies any polyuria or polydipsia. The rest of the 14-point review of systems is negative. Past Medical History Past Medical History: Coronary Artery Disease (CAD), Chest Pain / Angina, CVA/TIA, Hypertension, Osteoarthritis (OA) Additional Past Medical History / Comment(s): TIA, colitis, uterine fibroids-has sx, rt eye start of cataract. "gets fluid around heart" History of Any Multi-Drug Resistant Organisms: None Reported Past Surgical History: Bowel Resection, Cholecystectomy, Heart Catheterization, Hysterectomy, Joint Replacement Additional Past Surgical History / Comment(s): L knee replacement, colonscopy December 2015, total hysterectomy. 3 surgeries to lt knee Past Anesthesia/Blood Transfusion Reactions: No Reported Reaction Past Psychological History: Anxiety Smoking Status: Never smoker Past Alcohol Use History: None Reported Past Drug Use History: None Reported - Past Family History Father Family Medical History: Diabetes Mellitus, Hypertension Mother Family Medical History: Cancer, Congestive Heart Failure (CHF) Brother(s) Family Medical History: Chest Pain / Angina, Coronary Artery Disease (CAD) Sister(s) Family Medical History: CVA/TIA Son(s) Family Medical History: Coronary Artery Disease (CAD) Medications and Allergies Home Medications Medication Instructions Recorded Confirmed Type LORazepam [Ativan] 1 mg PO BID PRN 05/06/15 11/15/22 History busPIRone HCL 5 mg PO BID PRN 06/08/22 11/15/22 History lisinopriL [Zestril] 20 mg PO DAILY 06/08/22 11/15/22 History Nitroglycerin 2.5 mg PO DAILY 11/15/22 11/15/22 History Allergies Allergy/AdvReac Type Severity Reaction Status Date / Time codeine Allergy Rash/Hives Verified 11/15/22 11:44 Penicillins Allergy Rash/Hives Verified 11/15/22 11:44 pneumococcal vaccine Allergy Unknown Verified 11/15/22 11:44 Sulfa (Sulfonamide Allergy Nausea & Verified 11/15/22 11:44 Antibiotics) Vomiting & Diarrhea Tetanus Vaccines and Toxoid Allergy Unknown Verified 11/15/22 11:44 [Tetanus Vaccines & Toxoid] ketorolac [From Toradol] AdvReac Nausea & Verified 11/15/22 11:44 Vomiting Physical Exam Vitals: Vital Signs Temp Pulse Resp BP Pulse Ox 11/15/22 12:36 52 L 18 156/92 100 11/15/22 10:35 48 L 16 166/95 100 11/15/22 07:55 97.6 F 68 18 182/92 100 Intake and Output 11/14/22 11/15/22 11/15/22 22:59 06:59 14:59 Other: Weight 61.235 kg PHYSICAL EXAMINATION: GENERAL: The patient is alert and oriented x3, not in any acute distress. Well developed, well nourished. HEENT: Pupils are round and equally reacting to light. EOMI. No scleral icterus. No conjunctival pallor. Normocephalic, atraumatic. No pharyngeal erythema. No thyromegaly. CARDIOVASCULAR: S1 and S2 present. No murmurs, rubs, or gallops. PULMONARY: Chest is clear to auscultation, no wheezing or crackles. ABDOMEN: Soft, nontender, nondistended, normoactive bowel sounds. No palpable organomegaly. MUSCULOSKELETAL: No joint swelling or deformity. EXTREMITIES: No cyanosis, clubbing, or pedal edema. NEUROLOGICAL: Gross neurological examination did not reveal any focal deficits. SKIN: No rashes. Results CBC & Chem 7: 11/15/22 08:20 11/16/22 09:40 Labs: Abnormal Lab Results - Last 24 Hours (Table) 11/15/22 Range/Units 08:20 Potassium 3.3 L (3.5-5.1) mmol/L Total Protein 6.2 L (6.3-8.2) g/dL Assessment and Plan Assessment: 1. Chest pain; rule out acute coronary syndrome - Patient has been on cardiac telemetry; we will monitor EKG and trend troponin - Patient had a recent stress test done which was unremarkable - Consult cardiology for further recommendations 2. Right shoulder pain; patient denies any fall or injury; continue with pain control; x-ray 2 view right shoulder 3. Hypokalemia; supplemented in ED; we will monitor electrolytes and treat accordingly 4. Hypertension; lisinopril 20 mg daily 5. Anxiety; continue home dose of Ativan and BuSpar 5 mg twice a day
[2022-11-16] MEDS: FAMOTIDINE 20 MG TAB PO SCH (19:43)
[2022-11-17] MEDS: traMADol 50 MG TAB PO PRN ×3 (05:50→23:42)
[2022-11-17] MEDS: PANTOPRAZOLE 40 MG TABLET PO SCH (05:51)
[2022-11-17] MEDS: ATORVASTATIN 10 MG TAB PO SCH (08:52)
[2022-11-17] MEDS: ASPIRIN 81 MG PO SCH (08:52)
[2022-11-17] MEDS: LORazepam 1 MG TAB PO PRN ×2 (08:52→21:07)
[2022-11-17] MEDS: FAMOTIDINE 20 MG TAB PO SCH ×2 (08:53→19:45)
[2022-11-17] MEDS: lisinopriL 20 MG TAB PO SCH (08:53)
[2022-11-17 09:23] LABS: African American GFR (CKD) 68.5 (60.0-200.0); Anion Gap 7.5 mmol/L (10.00-18.00); BUN/Creat Ratio 15.55 Ratio (12.00-20.00); Blood Urea Nitrogen 15.1 mg/dL (9.0-27.0); Calcium 9.3 mg/dL (8.7-10.3); Carbon Dioxide 29.4 mmol/L (20.0-27.5); Non-African American GFR(CKD) 59.1 (60.0-200.0); Potassium 4.4 mmol/L (3.5-5.5)
[2022-11-17] MEDS ORDERED: HEPARIN SODIUM 1,000 UN/ML (10ML VL) IV PRN (10:33)
[2022-11-17] MEDS ORDERED: HEPARIN SODIUM 1,000 UN/ML (10ML VL) IV ONE (10:33)
[2022-11-17] MEDS ORDERED: NITROGLYCERIN OINT 1 INCH/GM PACKET TOPICAL STA (10:34)
[2022-11-17] MEDS ORDERED: HEPARIN SOD,PORK IN 0.45% NACL 25,000 UNIT in 0.45% NACL 1 250ML.BAG IV SCH (10:45)
[2022-11-17 11:16] LABS: Basophils % (A) 1 %; Eosinophils # (A) 0.2 k/uL (0-0.7); Eosinophils % (A) 2 %; HCT 38.7 % (34.0-46.0); HGB 13.6 gm/dL (11.4-16.0); Lymphocytes # (A) 1.2 k/uL (1.0-4.8); Lymphocytes % (A) 14 %; MCH 31.7 pg (25.0-35.0); MCV 90.6 fL (80.0-100.0); Monocytes # (A) 0.3 k/uL (0-1.0); Monocytes % (A) 4 %; Neutrophils # (A) 6.8 k/uL (1.3-7.7); Neutrophils % (A) 80 %; Platelet Count 219 k/uL (150-450); RBC 4.28 m/uL (3.80-5.40); RDW 13.2 % (11.5-15.5); WBC 8.6 k/uL (3.8-10.6)
[2022-11-17 11:31] LABS: INR 0.9 (<1.2); Partial Thromboplastin Time 22.3 sec (22.0-30.0)
--- NOTE | 2022-11-17 13:07 | P.PN ---
Subjective Progress Note Date: 11/17/22 The patient is a 72-year-old female who follows in the office with Dr. Duran. She presented to the emergency room with epigastric discomfort which awoke her in the middle the night. She again had similar symptoms last night around 3 AM. EKG revealed sinus rhythm with left anterior fascicular block. Extensive review of patient's EKGs and telemetry readings show that the patient will intermittently have a left anterior fascicular block, with T-wave inversions and changes in QRS morphology. This occurs without change in heart rate. At the time of my examination the patient was asymptomatic. She states she did not have any chest pain or chest pressure at that time and no difficulty breathing. GENERAL: Well-appearing, well-nourished and in no acute distress. NECK: Supple without JVD or thyromegaly. LUNGS: Breath sounds clear to auscultation bilaterally. Respiration equal and unlabored. No wheezes, rales or rhonchi. HEART: Regular rate and rhythm without murmurs, rubs or gallops. S1 and S2 heard. EXTREMITIES: Normal range of motion, no edema. No clubbing or cyanosis. Peripheral pulses intact and strong. TELEMETRY: Sinus rhythm overnight. Patient will intermittently have left anterior fascicular block, which resolves without change in heart rate. Both T-wave and QRS complex will change morphology, which is also evident on 12-lead EKG. LABS: WBC 8.6, hemoglobin 13.6, hematocrit 30.7, platelet 219, sodium 141, potassium 4.4, BUN 15, creatinine 1.0 IMPRESSION: Epigastric discomfort, recurrent Patient has undergone recent stress testing, which showed no evidence of ischemia however patient continues to have anginal symptoms History of hypertension PLAN: Nothing by mouth after midnight Proceed with coronary angiogram tomorrow with primary insurance professional Dr. Duran I am dictating on behalf of Dr Diego Riley's history/physical and assessment/plan. Objective - Vital Signs Vital signs: Vital Signs Temp 97.4 F L 11/17/22 10:20 Pulse 59 L 11/17/22 10:20 Resp 20 11/17/22 10:20 BP 136/81 11/17/22 10:20 Pulse Ox 100 11/17/22 10:20 FiO2 Intake & Output 0411/17/22 11/17/22 18:59 06:59 18:59 Intake Total 118 180 Balance 118 180 Intake: Oral 118 180 Other: Voiding Method Toilet # Voids 2 1 - Labs CBC & Chem 7: 11/17/22 05:41 11/17/22 05:41 Labs: Abnormal Lab Results - Last 24 Hours (Table) 11/17/22 Range/Units 05:41 Carbon Dioxide 29.4 H (20.0-27.5) mmol/L Anion Gap 7.50 L (10.00-18.00) mmol/L Est GFR (CKD-EPI)NonAf 59.1 L (60.0-200.0)
--- NOTE | 2022-11-17 13:08 | P.PN ---
Subjective Progress Note Date: 11/16/22 72-year-old female presents emergency Department chief complaint of chest pain. Patient states he woke up around 2 AM. Patient states it's centralized pain mild radiation. Patient states that she's had a recent echocardiogram showing some mild regurgitation. Patient denies any prior cardiac stents. Patient does have a history of hypertension. Patient was recently stopped off her metoprolol as she had bradycardia. Patient denies any leg pain like swelling. No history DVT or PE. She was a former smoker years ago. He states does feel slightly short of breath. Blood work completed in ED reveals WBC 5.7, hemoglobin of 13.6 and platelet count of 238, sodium 139, potassium 3.3 BUN/creatinine of 9/0.7 to Objective - Vital Signs Vital signs: Vital Signs Temp 97.7 F 11/16/22 07:00 Pulse 52 L 11/16/22 07:00 Resp 16 11/16/22 07:00 BP 161/85 11/16/22 07:00 Pulse Ox 98 11/16/22 07:00 FiO2 Intake & Output 11/15/22 11/16/22 11/16/22 18:59 06:59 18:59 Intake Total 118 Balance 118 Weight 61.235 kg Intake: Oral 118 Other: Voiding Method Toilet # Voids 1 - Exam GENERAL: The patient is alert and oriented x3, not in any acute distress. Well developed, well nourished. HEENT: Pupils are round and equally reacting to light. EOMI. No scleral icterus. No conjunctival pallor. Normocephalic, atraumatic. No pharyngeal erythema. No thyromegaly. CARDIOVASCULAR: S1 and S2 present. No murmurs, rubs, or gallops. PULMONARY: Chest is clear to auscultation, no wheezing or crackles. ABDOMEN: Soft, nontender, nondistended, normoactive bowel sounds. No palpable organomegaly. MUSCULOSKELETAL: No joint swelling or deformity. EXTREMITIES: No cyanosis, clubbing, or pedal edema. NEUROLOGICAL: Gross neurological examination did not reveal any focal deficits. SKIN: No rashes. - Labs CBC & Chem 7: 11/17/22 05:41 11/17/22 05:41 Assessment and Plan Assessment: 1. Chest pain; rule out acute coronary syndrome - Patient has been on cardiac telemetry; we will monitor EKG and trend troponin - Patient had a recent stress test done which was unremarkable - Consult cardiology for further recommendations 2. Right shoulder pain; patient denies any fall or injury; continue with pain control; x-ray 2 view right shoulder 3. Hypokalemia; supplemented in ED; we will monitor electrolytes and treat accordingly 4. Hypertension; lisinopril 20 mg daily 5. Anxiety; continue home dose of Ativan and BuSpar 5 mg twice a day
--- NOTE | 2022-11-17 18:01 | P.PN ---
Subjective Progress Note Date: 11/17/22 72-year-old female presents emergency Department chief complaint of chest pain. Patient states he woke up around 2 AM. Patient states it's centralized pain mild radiation. Patient states that she's had a recent echocardiogram showing some mild regurgitation. Patient denies any prior cardiac stents. Patient does have a history of hypertension. Patient was recently stopped off her metoprolol as she had bradycardia. Patient denies any leg pain like swelling. No history DVT or PE. She was a former smoker years ago. He states does feel slightly short of breath. 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 Blood work is reviewed WBC 8.6, hemoglobin 13.6 and platelet count of 219, sodium 141, potassium 4.4, BUN/creatinine of 50/1.0 Patient does have history of chest pain with recent Lexiscan stress test which was negative for ischemia; cardiology is reevaluated and is planning to proceed with coronary angiogram tomorrow Objective - Vital Signs Vital signs: Vital Signs Temp 97.4 F L 11/17/22 10:20 Pulse 59 L 11/17/22 10:20 Resp 20 11/17/22 10:20 BP 136/81 11/17/22 10:20 Pulse Ox 100 11/17/22 10:20 FiO2 Intake & Output 11/16/22 11/17/22 11/17/22 18:59 06:59 18:59 Intake Total 118 180 Balance 118 180 Intake: Oral 118 180 Other: Voiding Method Toilet # Voids 2 1 - Exam GENERAL: The patient is alert and oriented x3, not in any acute distress. Well developed, well nourished. HEENT: Pupils are round and equally reacting to light. EOMI. No scleral icterus. No conjunctival pallor. Normocephalic, atraumatic. No pharyngeal erythema. No thyromegaly. CARDIOVASCULAR: S1 and S2 present. No murmurs, rubs, or gallops. PULMONARY: Chest is clear to auscultation, no wheezing or crackles. ABDOMEN: Soft, nontender, nondistended, normoactive bowel sounds. No palpable organomegaly. MUSCULOSKELETAL: No joint swelling or deformity. EXTREMITIES: No cyanosis, clubbing, or pedal edema. NEUROLOGICAL: Gross neurological examination did not reveal any focal deficits. SKIN: No rashes. - Labs CBC & Chem 7: 11/17/22 05:41 11/17/22 05:41 Labs: Abnormal Lab Results - Last 24 Hours (Table) 11/17/22 Range/Units 05:41 Carbon Dioxide 29.4 H (20.0-27.5) mmol/L Anion Gap 7.50 L (10.00-18.00) mmol/L Est GFR (CKD-EPI)NonAf 59.1 L (60.0-200.0) Assessment and Plan Assessment: 1. Chest pain; rule out acute coronary syndrome - Patient has been on cardiac telemetry; we will monitor EKG and trend troponin - Patient had a recent stress test done which was unremarkable - Consult cardiology for further recommendations 2. Right shoulder pain; patient denies any fall or injury; continue with pain control; x-ray 2 view right shoulder 3. Hypokalemia; supplemented in ED; we will monitor electrolytes and treat accordingly 4. Hypertension; lisinopril 20 mg daily 5. Anxiety; continue home dose of Ativan and BuSpar 5 mg twice a day
[2022-11-18] MEDS: PANTOPRAZOLE 40 MG TABLET PO SCH (06:48)
[2022-11-18] MEDS: ASPIRIN 81 MG PO SCH (06:48)
[2022-11-18] MEDS: ATORVASTATIN 10 MG TAB PO SCH (06:48)
[2022-11-18] MEDS: FAMOTIDINE 20 MG TAB PO SCH (06:48)
[2022-11-18] MEDS: LORazepam 1 MG TAB PO PRN (06:48)
[2022-11-18] MEDS: lisinopriL 20 MG TAB PO SCH (06:49)
[2022-11-18] MEDS ORDERED: HEPARIN SODIUM,PORCINE 10,000 UNIT in SODIUM CHLORIDE 0.9% 1,000 ML IRRIGATION PRN (07:00)
[2022-11-18] MEDS ORDERED: HEPARIN SODIUM,PORCINE 2,500 UNIT in SODIUM CHLORIDE 0.9% 250 ML IRRIGATION PRN (07:00)
[2022-11-18] MEDS ORDERED: SODIUM CHLORIDE 0.9% 1,000 ML in EMPTY BAG 1 BAG IV SCH (07:45)
[2022-11-18] MEDS ORDERED: HEPARIN SODIUM 1,000 UN/ML (10ML VL) ONE (08:30)
[2022-11-18] MEDS ORDERED: VERAPAMIL 2.5 MG/ML 2 ML AMP ONE (08:30)
[2022-11-18] MEDS ORDERED: ASPIRIN 81 MG ONE (08:33)
[2022-11-18] MEDS ORDERED: fentaNYL (PF) 50 MCG/ML 2 ML AMP ONE (08:33)
[2022-11-18] MEDS ORDERED: ASPIRIN 81 MG PO ONE (08:34)
[2022-11-18] MEDS ORDERED: fentaNYL (PF) 50 MCG/ML 2 ML AMP IVP ONE (08:35)
[2022-11-18] MEDS ORDERED: LIDOCAINE 1% INJ 10MG/ML (5 ML VIAL-PF) SQ ONE (08:35)
[2022-11-18] MEDS ORDERED: VERAPAMIL SYRINGE (5 MG/10 ML) INTRAARTER ONE (08:36)
[2022-11-18] MEDS ORDERED: HEPARIN SODIUM 1,000 UN/ML (10ML VL) IVP ONE (08:42)
[2022-11-18] MEDS ORDERED: IOPAMIDOL-370 125ML BTL INJ ONE (08:51)
[2022-11-18] MEDS ORDERED: SODIUM CHLORIDE 0.9% 500 ML 500 ML IV ONE (08:52)
[2022-11-18] MEDS ORDERED: RX INFO: IV CONTRAST WAS GIVEN 1 EACH MISC MISCELLANE PRN (08:58)
[2022-11-18] MEDS ORDERED: SODIUM CHLORIDE 0.9% 1,000 ML IV SCH (09:00)
--- NOTE | 2022-11-18 09:03 | P.CARDCATH ---
Date of Procedure: 11/18/22 Description of Procedure: Cardiac Catheterization: The patient is a 72-year-old female with a known history of hypertension hyperlipidemia who presented with symptoms of recurrent chest discomfort. She had no evidence of enzymatic changes, she was evaluated by Dr. Riley. Recommendations were made regarding cardiac catheterization, the risks and the complications were discussed with the patient who is in full understanding and agreement. Procedure Description: Patient was brought to microbiology lab analyst in fasting semi-sedated state after receiving Fentanyl and Benadryl achieiving moderate conscious sedated state. Using Xylocaine Anesthesia and Seldinger technique, a 6-[place] sheath was introduced in the right radial artery . Subsequently, selective coronary angiography was performed using a 5-[place] 3.5 bend Stone catheter. Multiple views of the coronary artery including hemiaxial views were obtained. The 5-[place] pigtail catheter was used to cross the aortic valve and LVEDP was calculated. Following that, catheter and sheath were removed. Hemostasis was obtained with deployment of TR band . There was no immediate complication. Patient was returned to room in stable condition. Of note, the patient received a total of 3500 units of intravenous heparin as well as intra-arterial verapamil. Findings: Left main: This is a large-size vessel, bifurcating into PDA and PLV, the right coronary artery has no evidence of high-grade stenosis LAD: This is a large-size vessel, reaching to the apex giving rise to 2 large diagonal branch, the LAD and its branches have no evidence of high-grade stenosis Left circumflex: This is a large nondominant vessel giving rise to 3 obtuse marginal branch, the left circumflex and its branches have no evidence of obstructive coronary disease RCA: This is a large dominant vessel, bifurcating into PDA and PLV, the PAD reaches to the inferoapical wall. The right coronary artery and its branches have no evidence of high-grade stenosis Left Ventriculogram: Not performed Hemodynamics: There was no gradient across the aortic valve , LVEDP was 10-12 mmHg Conclusion: 1. Normal coronary arteries 2. Right dominance 3. Normal LVEDP Recommendations: In view of the findings I see no evidence to suggest ischemic etiology to her symptoms. I would recommend continue aggressive coronary risks modifications. The findings and the recommendations were discussed with the patient and the family and they were in full understanding and agreement. Duration of sedation is 18 minutes.
[2022-11-18 11:43] VITALS: BP 136/72; PULSE 67; RESP 16; TEMP 98.3
--- NOTE | 2022-11-19 06:16 | P.DS ---
Providers Date of admission: 11/18/22 06:54 Expected date of discharge: 11/18/22 Attending physician: Sindy Garcia Consults: 11/15/22 10:08 Consult Physician Urgent Consulting Provider: Kyle Rey Consult Reason/Comments: chest pain Do you want consulting provider notified?: Yes Primary care physician: Pantera Fuentes [facility] Hospital Course: Final diagnosis -Chest pain; ruled out acute coronary syndrome -Right shoulder pain; patient denies any fall or injury -Hypokalemia; improved -Hypertension -Anxiety Discharge disposition Patient is being discharged in a stable condition with guarded prognosis to home . Patient will follow-up with Dr. Fuentes in the outpatient setting upon discharge. Patient is to follow-up with cardiology in the outpatient setting as scheduled. Total time taken is greater than 35 minutes. Hospital course This is a 72-year-old female who was recently admitted with chest pain and being closely monitored. Patient was evaluated by cardiology and underwent cardiac catheterization recommending medical management and will follow-up outpatient with cardiology Dr. Duran. Please refer to cardiology notes for further HPI. Patient reports to feeling well and would like to go home. Currently no reports of chest pain, shortness of breath, or palpitations. Patient is afebrile. No reports of nausea or vomiting and patient is tolerating diet. Patient will be discharged home today. Physical exam: Gen: This is a 72-year-old female who is awake, alert and oriented 3, thin built, elderly appearing HEENT: Head is atraumatic, normocephalic. Pupils equal, round. Sclerae is anicteric. NECK: Supple. No JVD. No lymphadenopathy. No thyromegaly. LUNGS: Diminished breath sounds bilaterally with no wheezes or rhonchi. No intercostal retractions. HEART: S1, S2 are muffled ABDOMEN: Soft. Bowel sounds are present. No masses. No tenderness. EXTREMITIES: No pedal edema. No calf tenderness. NEUROLOGICAL: Patient is awake, alert and oriented x3. Cranial nerves 2 through 12 are grossly intact. Please refer to medication reconciliation sheet for a list of medications. The impression and plan of care has been dictated by Tierney Jones, Nurse Practitioner as directed. Dr. Jose MD I have performed a history and examination and MDM of this patient, discussed the same with the dictator, and agree with the dictator's assessment and plan as written ,documented as a scribe. Based on total visit time, I have performed more than 50% of the visit. Patient Condition at Discharge: Fair Plan - Discharge Summary Discharge Rx Participant: Yes New Discharge Prescriptions: New Atorvastatin [Lipitor] 10 mg PO DAILY #30 tab Aspirin 81 mg PO DAILY #30 tab Pantoprazole [Protonix] 40 mg PO AC-BRKFST #15 tab Continue LORazepam [Ativan] 1 mg PO BID PRN PRN Reason: Anxiety lisinopriL [Zestril] 20 mg PO DAILY busPIRone HCL 5 mg PO BID PRN PRN Reason: Anxiety Nitroglycerin 2.5 mg PO DAILY Discharge Medication List LORazepam [Ativan] 1 mg PO BID PRN 05/06/15 [History] busPIRone HCL 5 mg PO BID PRN 06/08/22 [History] lisinopriL [Zestril] 20 mg PO DAILY 06/08/22 [History] Nitroglycerin 2.5 mg PO DAILY 11/15/22 [History] Aspirin 81 mg PO DAILY #30 tab 11/18/22 [Rx] Atorvastatin [Lipitor] 10 mg PO DAILY #30 tab 11/18/22 [Rx] Pantoprazole [Protonix] 40 mg PO AC-BRKFST #15 tab 11/18/22 [Rx] Follow up Appointment(s)/Referral(s): Kostas Duran MD [STAFF PHYSICIAN] - 1 Week Pantera Fuentes DO [Primary Care Provider] - 1-2 days Patient Instructions/Handouts: *Surgery [facility] - After Heart Catheterization - 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
== END 2022-11-18 14:18 | disposition home or self-care (01) | DRG 287 ==
LOC: EC 07:54 → 6NMEDSUR 10:30 → 3SCARD 13:55 → 6NMEDSUR 15:02 → 3SCARD 11-17 14:50 → OBSVTOIN 11-18 06:54
PROVIDERS: ADMIT Hospitalist; ATTEND Hospitalist
PROC: B2111ZZ Fluoroscopy of Multiple Coronary Arteries using Low Osmolar Contrast (ICD-10-PCS; 2022-11-18)
PROC: 4A023N7 Measurement of Cardiac Sampling and Pressure, Left Heart, Percutaneous Approach (ICD-10-PCS; principal; 2022-11-18 11:20)
DX: I25.119 Atherosclerotic heart disease of native coronary artery with unspecified angina pectoris (principal); R07.9 Chest pain, unspecified; E87.6 Hypokalemia; M25.511 Pain in right shoulder; I10 Essential (primary) hypertension; F41.9 Anxiety disorder, unspecified; I34.0 Nonrheumatic mitral (valve) insufficiency; M19.90 Unspecified osteoarthritis, unspecified site; Z79.899 Other long term (current) drug therapy; Z79.82 Long term (current) use of aspirin; Z90.710 Acquired absence of both cervix and uterus; Z86.73 Personal history of transient ischemic attack (TIA), and cerebral infarction without residual deficits; Z96.652 Presence of left artificial knee joint; Z87.19 Personal history of other diseases of the digestive system; Z88.5 Allergy status to narcotic agent; Z88.0 Allergy status to penicillin; Z88.7 Allergy status to serum and vaccine; Z90.49 Acquired absence of other specified parts of digestive tract
CPT/HCPCS: 36415; 71046; 80048; 80053; 80061; 83735; 83880; 84484; 85025; 85379; 85610; 85730; 93458; 96374; 96375; 99285

== ENCOUNTER 2022-12-23 06:52 | Emergency (ER) | payer MEDICARE, OTHER ==
[2022-12-23 07:17] VITALS: RESP 18
[2022-12-23] MEDS ORDERED: NITROGLYCERIN SL TABS 0.4 MG TAB SUBLINGUAL STA (07:18)
[2022-12-23 07:29] LABS: Basophils # (A) 0.1 k/uL (0-0.2); Basophils % (A) 1 %; Eosinophils # (A) 0.2 k/uL (0-0.7); Eosinophils % (A) 3 %; HCT 40.5 % (34.0-46.0); Lymphocytes # (A) 2.2 k/uL (1.0-4.8); Lymphocytes % (A) 36 %; MCH 30.7 pg (25.0-35.0); MCHC 34.5 g/dL (31.0-37.0); MCV 89.1 fL (80.0-100.0); Mean Platelet Volume 7.1; Monocytes # (A) 0.3 k/uL (0-1.0); Monocytes % (A) 5 %; Neutrophils # (A) 3.4 k/uL (1.3-7.7); Neutrophils % (A) 55 %; Platelet Count 255 k/uL (150-450); RBC 4.54 m/uL (3.80-5.40); WBC 6.3 k/uL (3.8-10.6)
[2022-12-23 07:44] LABS: Albumin 3.9 g/dL (3.5-5.0); Calcium 9.1 mg/dL (8.4-10.2); Magnesium 2.2 mg/dL (1.6-2.3); Potassium 3.3 mmol/L (3.5-5.1); Total Bilirubin 0.9 mg/dL (0.2-1.3); Total Protein 6.3 g/dL (6.3-8.2)
[2022-12-23 07:50] LABS: Prothrombin Time 10.1 sec (9.0-12.0)
[2022-12-23] MEDS ORDERED: POTASSIUM CHLORIDE ER 20 MEQ TAB.ER PO STA (08:13)
--- NOTE | 2022-12-23 08:30 | ED ---
Chest Pain HPI - General Chief Complaint: Chest Pain Stated Complaint: Chest pain, Shortness of breath Time Seen by Provider: 12/23/22 07:00 Source: patient Mode of arrival: wheelchair Limitations: no limitations - History of Present Illness Initial Comments: 72-year-old female with past history of CVA, hypertension who presents to the emergency department reporting chest pain. States that it awoke her from sleep around 3 PM. Describes it as a sharp sensation in her epigastric region without radiation. Patient has been seen in the emergency department several times for same complaint. She recently had a cardiac catheterization on November [address] Duran. Patient had normal coronary arteries. Patient states that she does have nitro at home and took it however she did not have any relief in her symptoms. Also took a baby aspirin. No fevers chills or cough. No lower external swelling. No history of DVT or PE. No other alleviating, precipitating or modifying factors - Related Data Home Medications Medication Instructions Recorded Confirmed LORazepam [Ativan] 1 mg PO BID PRN 05/06/15 12/23/22 lisinopriL [Zestril] 20 mg PO DAILY 06/08/22 12/23/22 Nitroglycerin 2.5 mg PO DAILY 11/15/22 12/23/22 Previous Rx's Medication Instructions Recorded Aspirin 81 mg PO DAILY #30 tab 11/18/22 Atorvastatin [Lipitor] 10 mg PO DAILY #30 tab 11/18/22 Pantoprazole [Protonix] 40 mg PO AC-BRKFST #15 tab 11/18/22 Isosorbide Mononitrate ER [Imdur] 30 mg PO DAILY #30 tab 12/23/22 Allergies Allergy/AdvReac Type Severity Reaction Status Date / Time codeine Allergy Rash/Hives Verified 12/23/22 08:22 Penicillins Allergy Rash/Hives Verified 12/23/22 08:22 pneumococcal vaccine Allergy Unknown Verified 12/23/22 08:22 Tetanus Vaccines and Toxoid Allergy Unknown Verified 12/23/22 08:22 [Tetanus Vaccines & Toxoid] ketorolac [From Toradol] AdvReac Nausea & Verified 12/23/22 08:22 Vomiting Sulfa (Sulfonamide AdvReac Nausea & Verified 12/23/22 08:22 Antibiotics) Vomiting & Diarrhea Review of Systems ROS Statement: Those systems with pertinent positive or pertinent negative responses have been documented in the HPI. ROS Other: All systems not noted in ROS Statement are negative. EKG Findings - EKG Comments: EKG Findings:: EKG demonstrates sinus bradycardia with a rate of 52. PA interval of 199. QRS 105. QTC of 436. Some PVCs. Baseline artifact. No acute ST segment elevation. Past Medical History Past Medical History: Coronary Artery Disease (CAD), Chest Pain / Angina, CVA/TIA, Hypertension, Osteoarthritis (OA) Additional Past Medical History / Comment(s): TIA, colitis, uterine fibroids-has sx, rt eye start of cataract. "gets fluid around heart" History of Any Multi-Drug Resistant Organisms: None Reported Past Surgical History: Bowel Resection, Cholecystectomy, Heart Catheterization, Hysterectomy, Joint Replacement Additional Past Surgical History / Comment(s): L knee replacement, colonscopy December 2015, total hysterectomy. 3 surgeries to lt knee Past Anesthesia/Blood Transfusion Reactions: No Reported Reaction Past Psychological History: Anxiety Smoking Status: Never smoker Past Alcohol Use History: None Reported Past Drug Use History: None Reported - Past Family History Father Family Medical History: Diabetes Mellitus, Hypertension Mother Family Medical History: Cancer, Congestive Heart Failure (CHF) Brother(s) Family Medical History: Chest Pain / Angina, Coronary Artery Disease (CAD) Sister(s) Family Medical History: CVA/TIA Son(s) Family Medical History: Coronary Artery Disease (CAD) General Exam Limitations: no limitations General appearance: alert, in no apparent distress Head exam: Present: atraumatic, normocephalic, normal inspection Eye exam: Present: normal appearance, PERRL, EOMI. Absent: scleral icterus, conjunctival injection, periorbital swelling ENT exam: Present: normal exam, mucous membranes moist Neck exam: Present: normal inspection. Absent: tenderness, meningismus, lymphadenopathy Respiratory exam: Present: normal lung sounds bilaterally. Absent: respiratory distress, wheezes, rales, rhonchi, stridor Cardiovascular Exam: Present: regular rate, normal rhythm, normal heart sounds. Absent: systolic murmur, diastolic murmur, rubs, gallop, clicks GI/Abdominal exam: Present: soft, normal bowel sounds. Absent: distended, tenderness, guarding, rebound, rigid Extremities exam: Present: normal inspection, full ROM, normal capillary refill. Absent: tenderness, pedal edema, joint swelling, calf tenderness Back exam: Present: normal inspection Neurological exam: Present: alert, oriented X3, CN II-XII intact Psychiatric exam: Present: normal affect, normal mood Skin exam: Present: warm, dry, intact, normal color. Absent: rash Course Vital Signs 12/23/22 12/23/22 12/23/22 06:54 07:12 07:26 Temperature 96.8 F L Pulse Rate 60 51 L 60 Pulse Rate [ 51 L Cloth Examiner ] Respiratory 17 18 18 Rate Blood Pressure 156/94 182/97 151/97 O2 Sat by Pulse 100 100 100 Oximetry 12/23/22 12/23/22 09:12 09:22 Temperature 97.7 F Pulse Rate 52 L 56 L Pulse Rate [ Cloth Examiner ] Respiratory 18 18 Rate Blood Pressure 147/90 159/91 O2 Sat by Pulse 97 98 Oximetry Chest Pain MDM - MDM Was pt. sent in by a medical professional or institution (, PA, RUBBER VULCANIZING MACHINE OPERATOR, urgent care, hospital, or [facility]...) When possible be specific @ -No Did you speak to anyone other than the patient for history (EMS, parent, family, police, friend...)? What history was obtained from this source @ -No Did you review nursing and triage notes (agree or disagree)? Why? @ -I reviewed and agree with nursing and triage notes Were old charts reviewed (outside hosp., previous admission, EMS record, old EKG, old radiological studies, urgent care reports/EKG's, [facility] records)? Report findings @ -recent discharge summaries and cardiology consultations during the past few months were reviewed - patient hospitalized several times for same complaint Differential Diagnosis (chest pain, altered mental status, abdominal pain women, abdominal pain men, vaginal bleeding, weakness, fever, dyspnea, syncope, headache, dizziness, GI bleed, back pain, seizure, CVA, palpatations, mental health, musculoskeletal)? @ -acs, nstemi, stemi, chest wall pain/strain, angina, cornonary vasospasm EKG interpreted by me (3pts min.). @ -The EKG was interpreted by myself - please see EKG heading for further information X-rays interpreted by me (1pt min.). @ -yes CT interpreted by me (1pt min.). @ -None done U/S interpreted by me (1pt. min.). @ -None done What testing was considered but not performed or refused? (CT, X-rays, U/S, labs)? Why? @ -None What meds were considered but not given or refused? Why? @ -None Did you discuss the management of the patient with other professionals (professionals i.e. , PA, RUBBER VULCANIZING MACHINE OPERATOR, lab, RT, psych nurse, social work faculty member, production support supervisor, teacher, chief green officer, director of casework department)? Give summary @ -I spoke with the director of casework department who made the patient an appointment at the cardiology office in hopes that she will follow up there for her chest pain Was smoking cessation discussed for >3mins.? @ -No Was critical care preformed (if so, how long)? @ -No Were there social determinants of health that impacted care today? How? (Homelessness, low income, unemployed, alcoholism, drug addiction, transportation, low edu. Level, literacy, decrease access to med. care, [facility], rehab)? @ -mood disorder - patient continues to present to ED for same complaint that she has been hospitalized several times previously for Was there de-escalation of care discussed even if they declined (Discuss DNR or withdrawal of care, Hospice)? DNR status @ -No What co-morbidities impacted this encounter? (DM, HTN, Smoking, COPD, CAD, Cancer, CVA, ARF, Chemo, Hep., AIDS, mental health diagnosis, sleep apnea, morbid obesity)? @ -htn Was patient admitted / discharged? Hospital course, mention meds given and route, prescriptions, significant lab abnormalities, going to OR and other pertinent info. @ -Upon arrival patient is placed into room 6. A thorough history and physical exam is performed. IV access established. laboratory studies were conducted. Troponin is negative. Potassium 3.3. This is replaced. D-dimer 0.38. Chest x-ray performed demonstrates no acute process. Patient is worried about her blood pressure which has an average of 145/90 systolic. I do feel that the patient would benefit from Imdur which will help blood pressure as well as her chest pain. He she'll be started on this medication or perhaps to follow-up with her doctor in order to evaluate this medication change. Case management of call make an appointment with cardiology. She is instructed to return for any new or worsening symptoms prior patient agreed on discharge home in stable condition Undiagnosed new problem with uncertain prognosis? @ -No Drug Therapy requiring intensive monitoring for toxicity (Heparin, Nitro, Insulin, Cardizem)? @ -No Were any procedures done? @ -No Diagnosis/symptom? @ -recurrent chest pain, recurrent hypokalemia Acute, or Chronic, or Acute on Chronic? @ -chronic Uncomplicated (without systemic symptoms) or Complicated (systemic symptoms)? @ -complicated Side effects of treatment? @ -No Exacerbation, Progression, or Severe Exacerbation? @ -No Poses a threat to life or bodily function? How? (Chest pain, [place], [place], pneumonia, PE, COPD, DKA, ARF, appy, cholecystitis, CVA, Diverticulitis, Homicidal, Suicidal, threat to staff... and all critical care pts) @ -No Disposition Clinical Impression: Chest pain, Hypokalemia Disposition: HOME SELF-CARE Condition: Stable Instructions (If sedation given, give patient instructions): Chest Pain (ED) Additional Instructions: You are going to be started on on new medication today for your chest pain and blood pressure. Take it every day as directed. You will follow up with the cardiology office to make sure that it is working for you Prescriptions: Isosorbide Mononitrate ER [Imdur] 30 mg PO DAILY #30 tab Is patient prescribed a controlled substance at d/c from ED?: No Referrals: Kostas Duran MD [STAFF PHYSICIAN] - 12/30/22 11:15 am Pantera Fuentes DO [Primary Care Provider] - 1-2 days Time of Disposition: 09:12
[2022-12-23] MEDS ORDERED: MORPHINE SULFATE 2 MG/ML SYRINGE IVP ONE (08:32)
--- NOTE | 2022-12-23 08:33 | XR ---
EXAMINATION TYPE: XR chest 2V DATE OF EXAM: 12/23/2022 COMPARISON: 11/15/2022 HISTORY: 72-year-old female cough and pain TECHNIQUE: AP frontal and lateral views FINDINGS: The cardiomediastinal silhouette, aorta, and pulmonary vasculature are within normal limits. Lungs an d pleural spaces are clear. IMPRESSION: No acute cardiopulmonary process.
[2022-12-23] MEDS ORDERED: ONDANSETRON 4 MG/2 ML VIAL IVP STA (08:51)
[2022-12-23] MEDS ORDERED: ISOSORBIDE MONONITRATE ER 30 MG TAB.ER.24H PO STA (09:08)
[2022-12-23 09:24] VITALS: BP 159/91; PULSE 56; TEMP 97.7
== END 2022-12-23 09:28 | disposition home or self-care (01) ==
LOC: EC 06:52
DX: E87.6 Hypokalemia (principal); R07.89 Other chest pain; I10 Essential (primary) hypertension; I25.10 Atherosclerotic heart disease of native coronary artery without angina pectoris; M19.90 Unspecified osteoarthritis, unspecified site; F41.9 Anxiety disorder, unspecified; Z79.899 Other long term (current) drug therapy; Z88.0 Allergy status to penicillin; Z88.1 Allergy status to other antibiotic agents; Z88.2 Allergy status to sulfonamides; Z88.7 Allergy status to serum and vaccine; Z88.8 Allergy status to other drugs, medicaments and biological substances; Z90.49 Acquired absence of other specified parts of digestive tract
CPT/HCPCS: 36415; 93005; 85379; 80053; 83690; 83735; 84484; 85025; 85610; 85730; 71046; 99285; 96374; J2405

== ENCOUNTER 2023-03-25 09:17 | Inpatient (IN) | payer MEDICARE, OTHER ==
[2023-03-25] MEDS ORDERED: SODIUM CHLORIDE 0.9% 500 ML 500 ML IV STA (09:58)
[2023-03-25 10:23] LABS: Basophils % (A) 1 %; Eosinophils # (A) 0.1 k/uL (0-0.7); Eosinophils % (A) 2 %; HCT 40.2 % (34.0-46.0); HGB 14.5 gm/dL (11.4-16.0); Lymphocytes # (A) 1.6 k/uL (1.0-4.8); Lymphocytes % (A) 24 %; MCH 31.9 pg (25.0-35.0); MCHC 36.1 g/dL (31.0-37.0); MCV 88.2 fL (80.0-100.0); Mean Platelet Volume 6.9; Monocytes # (A) 0.3 k/uL (0-1.0); Monocytes % (A) 4 %; Neutrophils # (A) 4.6 k/uL (1.3-7.7); Neutrophils % (A) 68 %; Platelet Count 214 k/uL (150-450); RBC 4.56 m/uL (3.80-5.40); RDW 12.9 % (11.5-15.5); WBC 6.7 k/uL (3.8-10.6)
--- NOTE | 2023-03-25 10:26 | ED ---
General Adult HPI - General Chief complaint: Neuro Symptoms/Deficit Stated complaint: neuro issues Time Seen by Provider: 03/25/23 09:20 Source: patient, RN notes reviewed, old records reviewed Mode of arrival: ambulatory Limitations: no limitations - History of Present Illness Initial comments: This is a 72-year-old female who presents emergency department stating that for the last 2 days she has had a decreased sensation on the left side of her body on the face arm and leg. Patient states this happened once before many years ago when it occurred then she was told she had a mini stroke. Patient denies any weakness any slurred speech or any headache. Patient has had no problems with coordination or walking. Patient denies any chest pain difficulty breathing shortness of breath. Patient denies any recent fever chills or cough. Patient denies any new medications. Patient denies any abdominal pain palpitations nausea vomiting diarrhea - Related Data Home Medications Medication Instructions Recorded Confirmed LORazepam [Ativan] 1 mg PO BID PRN 05/06/15 12/23/22 lisinopriL [Zestril] 20 mg PO DAILY 06/08/22 12/23/22 Nitroglycerin 2.5 mg PO DAILY 11/15/22 12/23/22 Previous Rx's Medication Instructions Recorded Aspirin 81 mg PO DAILY #30 tab 11/18/22 Atorvastatin [Lipitor] 10 mg PO DAILY #30 tab 11/18/22 Pantoprazole [Protonix] 40 mg PO AC-BRKFST #15 tab 11/18/22 Isosorbide Mononitrate ER [Imdur] 30 mg PO DAILY #30 tab 12/23/22 Allergies Allergy/AdvReac Type Severity Reaction Status Date / Time codeine Allergy Rash/Hives Verified 03/25/23 09:23 Penicillins Allergy Rash/Hives Verified 03/25/23 09:23 pneumococcal vaccine Allergy Unknown Verified 03/25/23 09:23 Tetanus Vaccines and Toxoid Allergy Unknown Verified 03/25/23 09:23 [Tetanus Vaccines & Toxoid] ketorolac [From Toradol] AdvReac Nausea & Verified 03/25/23 09:23 Vomiting Sulfa (Sulfonamide AdvReac Nausea & Verified 03/25/23 09:23 Antibiotics) Vomiting & Diarrhea Review of Systems ROS Statement: Those systems with pertinent positive or pertinent negative responses have been documented in the HPI. ROS Other: All systems not noted in ROS Statement are negative. Past Medical History Past Medical History: Coronary Artery Disease (CAD), Chest Pain / Angina, CVA/TIA, Hypertension, Osteoarthritis (OA) Additional Past Medical History / Comment(s): TIA, colitis, uterine fibroids-has sx, rt eye start of cataract. "gets fluid around heart" History of Any Multi-Drug Resistant Organisms: None Reported Past Surgical History: Bowel Resection, Cholecystectomy, Heart Catheterization, Hysterectomy, Joint Replacement Additional Past Surgical History / Comment(s): L knee replacement, colonscopy December 2015, total hysterectomy. 3 surgeries to lt knee Past Anesthesia/Blood Transfusion Reactions: No Reported Reaction Past Psychological History: Anxiety Smoking Status: Never smoker Past Alcohol Use History: None Reported Past Drug Use History: None Reported - Past Family History Father Family Medical History: Diabetes Mellitus, Hypertension Mother Family Medical History: Cancer, Congestive Heart Failure (CHF) Brother(s) Family Medical History: Chest Pain / Angina, Coronary Artery Disease (CAD) Sister(s) Family Medical History: CVA/TIA Son(s) Family Medical History: Coronary Artery Disease (CAD) General Exam - General Exam Comments Initial Comments: GENERAL: Patient is well-developed and well-nourished. Patient is nontoxic and well- hydrated and is in mild distress. ENT: Neck is soft and supple. No significant lymphadenopathy is noted. Oropharynx is clear. Moist mucous membranes. Neck has full range of motion without el iciting any pain. EYES: The sclera were anicteric and conjunctiva were pink and moist. Extraocular movements were intact and pupils were equal round and reactive to light. Eyelids were unremarkable. PULMONARY: Unlabored respirations. Good breath sounds bilaterally. No audible rales rhonchi or wheezing was noted. CARDIOVASCULAR: There is a regular rate and rhythm without any murmurs gallops or rubs. ABDOMEN: Soft and nontender with normal bowel sounds. SKIN: Skin is clear with no lesions or rashes and otherwise unremarkable. NEUROLOGIC: Patient is alert and oriented x3. Cranial nerves II through XII are grossly intact. Patient has full range of motion of all 4 extremities. Patient states there is some change in sensation on the face arm and leg however she feels audible light touch on exam. Normal speech, volume and content. Symmetrical smile. MUSCULOSKELETAL: Normal extremities with adequate strength and full range of motion. LYMPHATICS: No significant lymphadenopathy is noted PSYCHIATRIC: Normal psychiatric evaluation. Limitations: no limitations Course Vital Signs 03/25/23 03/25/23 03/25/23 09:18 09:48 11:23 Temperature 98 F Pulse Rate 62 54 L 50 L Respiratory 18 18 18 Rate Blood Pressure 128/84 174/92 168/92 O2 Sat by Pulse 98 99 100 Oximetry Medical Decision Making - Medical Decision Making EKG was interpreted by myself shows a sinus rhythm with occasional PAC at a rate of 65 bpm DE interval is 203 QRS is 117 QT interval 351 QTC is 362. Patient's EKG shows slight ST segment depression in precordial leads. Was pt. sent in by a medical professional or institution (, PA, PHARMACOVIGILANCE SCIENTIST, urgent care, hospital, or group home...) When possible be specific @ -[No] Did you speak to anyone other than the patient for history (EMS, parent, family, police, friend...)? What history was obtained from this source @ -[No] Did you review nursing and triage notes (agree or disagree)? Why? @ -[I reviewed and agree with nursing and triage notes] Were old charts reviewed (outside hosp., previous admission, EMS record, old EKG, old radiological studies, urgent care reports/EKG's, group home records)? Report findings @ -Reviewed per chart per lab work on this patient Differential Diagnosis (chest pain, altered mental status, abdominal pain women, abdominal pain men, vaginal bleeding, weakness, fever, dyspnea, syncope, headach e, dizziness, GI bleed, back pain, seizure, CVA, palpatations, mental health, musculoskeletal)? @ -Differential CVA Ischemic stroke, hemorrhagic stroke, brain tumor, atypical migraine, Wernicke's encephalopathy, seizure, multiple sclerosis, meningitis, encephalitis, hypoglycemia, Guillain-Faustin, electrolytes disturbance, myasthenia gravis.... This is not meant to be an all-inclusive list EKG interpreted by me (3pts min.). @ -[As above] X-rays interpreted by me (1pt min.). @ -Chest x-ray shows no acute abnormality CT interpreted by me (1pt min.). @ -CT of the brain and CT angiogram of the head and neck show no acute abnormality U/S interpreted by me (1pt. min.). @ -[None done] What testing was considered but not performed or refused? (CT, X-rays, U/S, labs)? Why? @ -[None] What meds were considered but not given or refused? Why? @ -[None] Did you discuss the management of the patient with other professionals (professionals i.e. , PA, PHARMACOVIGILANCE SCIENTIST, lab, RT, psych nurse, rn social work, functional skills tutor, teacher, alumni relations officer, window caser)? Give summary @ -I spoke with [facility] and they agreed to admit the patient Was smoking cessation discussed for >3mins.? @ -[No] Was critical care preformed (if so, how long)? @ -[No] Were there social determinants of health that impacted care today? How? (Homelessness, low income, unemployed, alcoholism, drug addiction, transportation, low edu. Level, literacy, decrease access to med. care, correction, rehab)? @ -[No] Was there de-escalation of care discussed even if they declined (Discuss DNR or withdrawal of care, Hospice)? DNR status @ -[No] What co-morbidities impacted this encounter? (DM, HTN, Smoking, COPD, CAD, Cancer, CVA, ARF, Chemo, Hep., AIDS, mental health diagnosis, sleep apnea, morbid obesity)? @ -[None] Was patient admitted / discharged? Hospital course, mention meds given and route, prescriptions, significant lab abnormalities, going to OR and other pertinent info. @ -Patient continued to have numbness in the face arm and leg throughout the ED duration. Patient's CT of the brain and CT angiogram of the head and neck show no acute abnormality. I spoke with [facility] agreed to admit the patient to the patient wrote admitting orders I consult the neurology Undiagnosed new problem with uncertain prognosis? @ -[No] Drug Therapy requiring intensive monitoring for toxicity (Heparin, Nitro, Insulin, Cardizem)? @ -[No] Were any procedures done? @ -[No] Diagnosis/symptom? @ -CVA Acute, or Chronic, or Acute on Chronic? @ -Acute Uncomplicated (without systemic symptoms) or Complicated (systemic symptoms)? @ -Complicated Side effects of treatment? @ -[No] Exacerbation, Progression, or Severe Exacerbation? @ -[No] Poses a threat to life or bodily function? How? (Chest pain, [place], NH, pneumonia, PE, COPD, DKA, ARF, appy, cholecystitis, CVA, Diverticulitis, Homicidal, Shanks icidal, threat to staff... and all critical care pts) @ -Yes this could lead to further morbidity and mortality - Lab Data Result diagrams: 03/25/23 10:00 03/25/23 10:00 Lab Results 03/25/23 03/25/23 03/25/23 Range/Units 10:00 10:00 10:00 WBC 6.7 (3.8-10.6) k/uL RBC 4.56 (3.80-5.40) m/uL Hgb 14.5 (11.4-16.0) gm/dL Hct 40.2 (34.0-46.0) % MCV 88.2 (80.0-100.0) fL MCH 31.9 (25.0-35.0) pg MCHC 36.1 (31.0-37.0) g/dL RDW 12.9 (11.5-15.5) % Plt Count 214 (150-450) k/uL MPV 6.9 Neutrophils % 68 % Lymphocytes % 24 % Monocytes % 4 % Eosinophils % 2 % Basophils % 1 % Neutrophils # 4.6 (1.3-7.7) k/uL Lymphocytes # 1.6 (1.0-4.8) k/uL Monocytes # 0.3 (0-1.0) k/uL Eosinophils # 0.1 (0-0.7) k/uL Basophils # 0.0 (0-0.2) k/uL PT 10.3 (9.0-12.0) sec INR 1.0 (<1.2) APTT 24.5 (22.0-30.0) sec Sodium 138 (137-145) mmol/L Potassium 2.8 L (3.5-5.1) mmol/L Chloride 101 (98-107) mmol/L Carbon Dioxide 31 H (22-30) mmol/L Anion Gap 6 mmol/L BUN 3 L (7-17) mg/dL Creatinine 0.72 (0.52-1.04) mg/dL Est GFR (CKD-EPI)AfAm >90 (>60 ml/min/1.73 sqM) Est GFR (CKD-EPI)NonAf 86 (>60 ml/min/1.73 sqM) Glucose 98 (74-99) mg/dL Calcium 9.5 (8.4-10.2) mg/dL Total Bilirubin 1.5 H (0.2-1.3) mg/dL AST 19 (14-36) U/L ALT 16 (4-34) U/L Alkaline Phosphatase 85 (38-126) U/L Creatine Kinase 32 (30-135) U/L Troponin I (0.000-0.034) ng/mL Total Protein 6.4 (6.3-8.2) g/dL Albumin 3.9 (3.5-5.0) g/dL /04/09 Range/Units 10:00 WBC (3.8-10.6) k/uL RBC (3.80-5.40) m/uL Hgb (11.4-16.0) gm/dL Hct (34.0-46.0) % MCV (80.0-100.0) fL MCH (25.0-35.0) pg MCHC (31.0-37.0) g/dL RDW (11.5-15.5) % Plt Count (150-450) k/uL MPV Neutrophils % % Lymphocytes % % Monocytes % % Eosinophils % % Basophils % % Neutrophils # (1.3-7.7) k/uL Lymphocytes # (1.0-4.8) k/uL Monocytes # (0-1.0) k/uL Eosinophils # (0-0.7) k/uL Basophils # (0-0.2) k/uL PT (9.0-12.0) sec INR (<1.2) APTT (22.0-30.0) sec Sodium (137-145) mmol/L Potassium (3.5-5.1) mmol/L Chloride (98-107) mmol/L Carbon Dioxide (22-30) mmol/L Anion Gap mmol/L BUN (7-17) mg/dL Creatinine (0.52-1.04) mg/dL Est GFR (CKD-EPI)AfAm (>60 ml/min/1.73 sqM) Est GFR (CKD-EPI)NonAf (>60 ml/min/1.73 sqM) Glucose (74-99) mg/dL Calcium (8.4-10.2) mg/dL Total Bilirubin (0.2-1.3) mg/dL AST (14-36) U/L ALT (4-34) U/L Alkaline Phosphatase (38-126) U/L Creatine Kinase (30-135) U/L Troponin I <0.012 (0.000-0.034) ng/mL Total Protein (6.3-8.2) g/dL Albumin (3.5-5.0) g/dL Disposition Clinical Impression: Cerebrovascular accident (CVA), Hypokalemia Disposition: ADMITTED IP TO THIS [facility] Time of Disposition: 13:48
[2023-03-25 10:27] LABS: Partial Thromboplastin Time 24.5 sec (22.0-30.0); Prothrombin Time 10.3 sec (9.0-12.0)
[2023-03-25 10:38] LABS: ALT 16 U/L (4-34); AST 19 U/L (14-36); African American GFR (CKD) >90 (>60 ml/min/1.73 sqM); Albumin 3.9 g/dL (3.5-5.0); Alkaline Phosphatase 85 U/L (38-126); Anion Gap 6 mmol/L; Blood Urea Nitrogen 3 mg/dL (7-17); Calcium 9.5 mg/dL (8.4-10.2); Carbon Dioxide 31 mmol/L (22-30); Chloride 101 mmol/L (98-107); Creatine Kinase 32 U/L (30-135); Glucose 98 mg/dL (74-99); Non-African American GFR(CKD) 86 (>60 ml/min/1.73 sqM); Potassium 2.8 mmol/L (3.5-5.1); Sodium 138 mmol/L (137-145); Total Bilirubin 1.5 mg/dL (0.2-1.3); Total Protein 6.4 g/dL (6.3-8.2)
[2023-03-25] MEDS ORDERED: LORazepam 2 MG/ML INJ IV STA (11:27)
--- NOTE | 2023-03-25 11:32 | CT ---
EXAMINATION TYPE: CT brain wo con DATE OF EXAM: 03/25/2023 COMPARISON: 03/01/2014 HISTORY: Neuro deficit, acute stroke suspected. Left sided weakness and numbness started yesterday a t 2200 CT DLP: 1096.[address] of the brain was performed. The ventricles, basal cisterns and sulci overlying the cerebral convexities demonstrate mild enlargem ent. There is no evidence for intracranial hemorrhage or sulcal effacement. There is decreased attenuation about the periventricular white matter and deep white matter of both c erebral hemispheres, compatible with chronic small vessel ischemia. Differential diagnosis does inclu de demyelination. No mass effects are seen.No midline shift. Osseous calvarium is intact. If symptoms persist consider MRI. IMPRESSION: 1. Age related atrophic and chronic small vessel ischemic change without acute intracranial process s een at this time.
--- NOTE | 2023-03-25 11:33 | XR ---
EXAMINATION TYPE: XR chest 2V DATE OF EXAM: 03/25/2023 COMPARISON: 12/23/2022 HISTORY: Shortness of breath TECHNIQUE: Frontal and lateral views of the chest are obtained. FINDINGS: Scattered senescent parenchymal changes noted. Hyperinflation compatible with COPD. No evidence for infiltrate. No evidence for atelectasis. Heart size is stable. Mediastinal structures are stable and grossly unremarkable. No evidence for hilar prominence. Degenerative changes dorsal spine. IMPRESSION: 1. No evidence for acute pulmonary disease.
--- NOTE | 2023-03-25 12:33 | CT ---
EXAMINATION TYPE: CT angio head neck DATE OF EXAM: 03/25/2023 COMPARISON: None HISTORY: Neuro deficit, acute stroke suspected. Left sided weakness and numbness started at [address] DLP: 389.4 mGycm CONTRAST: Performed without and with IV Contrast, patient injected with 65 ml mL of Isovue 370. Combination Contrast CTA cervical carotids and Ey[place] of Smith CTA cervical carotids with 3-D recons truction Contrast CTA of the cervical carotids was performed 3-D reconstruction imaging obtained at a separate workstation. Right carotid system: Mild plaque is seen of the right common carotid artery. There is mild plaque a lso noted at the carotid bulb and proximal ICA. No significant diameter reduction. ECA is patent. Right vertebral artery appears unremarkable. Left carotid system: Mild plaque is seen of the left common carotid artery. There is mild plaque als o noted at the carotid bulb and proximal ICA. No significant diameter reduction. ECA is patent. Lef t vertebral artery appears unremarkable. IMPRESSION: 1. No significant diameter reduction to account for the patient's symptoms. CTA ruby of Smith with 3-D reconstruction Contrast CTA of the ruby of Smith was performed 3-D reconstruction imaging obtained at a separate workstation. Vertebrobasilar system as well as intracranial portions of the internal carotid arteries and their ma garcia tributaries are patent. I do not see evidence for sizable aneurysm or vascular malformation. Pl ease note MRI provides greater sensitivity and specificity. Visualized brain appears grossly unremar kable. IMPRESSION: 1. No significant abnormality. NASCET criteria was used in interpretation of this exam?
[2023-03-25] MEDS ORDERED: Potassium Replacement Protocol 1 EACH MISC MISCELLANE PRN (14:20)
--- NOTE | 2023-03-25 14:27 | P.HPIM ---
History of Present Illness H&P Date: 03/25/23 History of present illness; patient is a 72-year-old lady with past medical sign ificant for TIA, hypertension, hyperlipidemia who presented to The ER because of left-sided numbness that started yesterday. Patient stated that she was all right yesterday when she started noticing that her face was numb on the left side, it was followed by numbness of her left upper and lower extremity. Denied any slurred speech. Denied any facial droop. Denied any weakness of any extremity. This numbness persisted. Denied any recent fall. Denied any complaint of unsteady gait. Because of persistent numbness, patient came to the ER Initial lab work done in the ER showed WBC 6.7, hemoglobin 14.5, platelet count 09/18/2013, sodium 138, potassium 2.8, BUN 3, creatinine 0.72, bilirubin 1.5, AST 19, ALT 16, CT brain done showed age-related atrophic and chronic small vessel ischemic ch adam without acute intracranial process CTA head and neck done, no acute stenosis noted Patient was admitted to medicine service REVIEW OF SYSTEMS: CONSTITUTIONAL: No fever, no malaise, no fatigue. HEENT: No recent visual problems or hearing problems. Denied any sore throat. CARDIOVASCULAR: No chest pain, orthopnea, PND, no palpitations, no syncope. PULMONARY: No shortness of breath, no cough, no hemoptysis. GASTROINTESTINAL: No diarrhea, no nausea, no vomiting, no abdominal pain. NEUROLOGICAL: As mentioned in HPI HEMATOLOGICAL: Denies any bleeding or petechiae. GENITOURINARY: Denies any burning micturition, frequency, or urgency. MUSCULOSKELETAL/RHEUMATOLOGICAL: Denies any joint pain, swelling, or any muscle pain. ENDOCRINE: Denies any polyuria or polydipsia. The rest of the 14-point review of systems is negative. PHYSICAL EXAMINATION: GENERAL: The patient is alert and oriented x3, not in any acute distress. Well developed, well nourished. HEENT: Pupils are round and equally reacting to light. EOMI. No scleral icterus. No conjunctival pallor. Normocephalic, atraumatic. No pharyngeal erythema. No thyromegaly. CARDIOVASCULAR: S1 and S2 present. No murmurs, rubs, or gallops. PULMONARY: Chest is clear to auscultation, no wheezing or crackles. ABDOMEN: Soft, nontender, nondistended, normoactive bowel sounds. No palpable organomegaly. MUSCULOSKELETAL: No joint swelling or deformity. EXTREMITIES: No cyanosis, clubbing, or pedal edema. NEUROLOGICAL: Alert awake oriented 3, muscle strength is 5 x 5 in all extremities, cranial nerves II 12 intact, reduced sensation to touch noticeable in left upper and lower extremity and left side of face SKIN: No rashes. Assessment and plan Strokelike symptoms Hypokalemia Monitor vital signs Monitor CBC Monitor CMP Continue telemetry monitoring Continue neuro checks Ordered 2-D echo Ordered ultrasound of carotids Continue aspirin and Lipitor. Ordered lipid panel Ordered HbA1c level Resume home meds Consult neurology Labs and medication were reviewed.. Continue same treatment. Continue with symptomatic treatment. Resume home medication. Monitor labs and vitals. DVT and GI prophylaxis. Further recommendations as per clinical course of the patient Dictation was produced using [employer] dictation software. please excuse any grammatical, word or spelling errors. Past Medical History Past Medical History: Coronary Artery Disease (CAD), Chest Pain / Angina, CVA/TIA, Hypertension, Osteoarthritis (OA) Additional Past Medical History / Comment(s): TIA, colitis, uterine fibroids-has sx, rt eye start of cataract. "gets fluid around heart" History of Any Multi-Drug Resistant Organisms: None Reported Past Surgical History: Bowel Resection, Cholecystectomy, Heart Catheterization, Hysterectomy, Joint Replacement Additional Past Surgical History / Comment(s): L knee replacement, colonscopy December 2015, total hysterectomy. 3 surgeries to lt knee Past Anesthesia/Blood Transfusion Reactions: No Reported Reaction Past Psychological History: Anxiety Smoking Status: Never smoker Past Alcohol Use History: None Reported Past Drug Use History: None Reported - Past Family History Father Family Medical History: Diabetes Mellitus, Hypertension Mother Family Medical History: Cancer, Congestive Heart Failure (CHF) Brother(s) Family Medical History: Chest Pain / Angina, Coronary Artery Disease (CAD) Sister(s) Family Medical History: CVA/TIA Son(s) Family Medical History: Coronary Artery Disease (CAD) Medications and Allergies Home Medications Medication Instructions Recorded Confirmed Type LORazepam [Ativan] 1 mg PO BID PRN 05/06/15 12/23/22 History lisinopriL [Zestril] 20 mg PO DAILY 06/08/22 12/23/22 History Nitroglycerin 2.5 mg PO DAILY 11/15/22 12/23/22 History Aspirin 81 mg PO DAILY #30 tab 11/18/22 12/23/22 Rx Atorvastatin [Lipitor] 10 mg PO DAILY #30 tab 11/18/22 12/23/22 Rx Pantoprazole [Protonix] 40 mg PO AC-BRKFST #15 tab 11/18/22 12/23/22 Rx Isosorbide Mononitrate ER [Imdur] 30 mg PO DAILY #30 tab 12/23/22 Rx Allergies Allergy/AdvReac Type Severity Reaction Status Date / Time codeine Allergy Rash/Hives Verified 03/25/23 09:23 Penicillins Allergy Rash/Hives Verified 03/25/23 09:23 pneumococcal vaccine Allergy Unknown Verified 03/25/23 09:23 Tetanus Vaccines and Toxoid Allergy Unknown Verified 03/25/23 09:23 [Tetanus Vaccines & Toxoid] ketorolac [From Toradol] AdvReac Nausea & Verified 03/25/23 09:23 Vomiting Sulfa (Sulfonamide AdvReac Nausea & Verified 03/25/23 09:23 Antibiotics) Vomiting & Diarrhea Physical Exam Vitals: Vital Signs Temp Pulse Resp BP Pulse Ox 03/25/23 11:23 50 L 18 168/92 100 03/25/23 09:48 54 L 18 174/92 99 03/25/23 09:18 98 F 62 18 128/84 98 Intake and Output 03/24/23 03/25/23 03/25/23 22:59 06:59 14:59 Other: Weight 61.235 kg Results CBC & Chem 7: 03/25/23 10:00 03/25/23 10:00 Labs: Abnormal Lab Results - Last 24 Hours (Table) 03/25/23 Range/Units 10:00 Potassium 2.8 L (3.5-5.1) mmol/L Carbon Dioxide 31 H (22-30) mmol/L BUN 3 L (7-17) mg/dL Total Bilirubin 1.5 H (0.2-1.3) mg/dL
[2023-03-25] MEDS: POTASSIUM CHLORIDE ER 20 MEQ TAB.ER PO SCH ×3 (14:52→16:51)
[2023-03-25] MEDS ORDERED: ACETAMINOPHEN TAB 325 MG TAB PO PRN (15:18)
[2023-03-25] MEDS ORDERED: hydrALAZINE HCL 20 MG/ML 1 ML VIAL IVP PRN (15:18)
--- NOTE | 2023-03-25 16:29 | US ---
EXAMINATION TYPE: US carotid duplex BILAT DATE OF EXAM: 03/25/2023 COMPARISON: NONE CLINICAL INDICATION: Female, 72 years old with history of Slurred speech; Left sided numbness, slurre d speech TECHNIQUE: Carotid duplex ultrasound examination. Indirect Doppler criteria was utilized. FINDINGS: EXAM MEASUREMENTS: RIGHT: Peak Systolic Velocity (PSV) cm/sec ----- Right CCA: 70.3 ----- Right ICA: 66.6 ----- Right ECA: 59.5 ICA/CCA ratio: 0.9 RIGHT: End Diastole cm/sec ----- Right CCA: 14.5 ----- Right ICA: 18.9 ----- Right ECA: 8.3 LEFT: Peak Systolic Velocity (PSV) cm/sec ----- Left CCA: 43.1 ----- Left ICA: 72.1 ----- Left ECA: 68.6 ICA/CCA ratio: 1.7 LEFT: End Diastole cm/sec ----- Left CCA: 11.8 ----- Left ICA: 24.1 ----- Left ECA: 0.0 VERTEBRALS (direction of flow): Right Vertebral: Antegrade Left Vertebral: Antegrade Rhythm: Normal HOTEL REGISTRATION CLERK NOTES: Mild plaque bilateral bifurcations. No evidence of increased velocities IMPRESSION: Less than 50% stenosis of the bilateral carotid bifurcations. Criteria for Assigning % of Stenosis / Diameter reduction (Estimation based on the indirect measurements of the internal carotid artery velocities (ICA PSV). 1. Normal (no stenosis)=ICA PSV < 125 cm/s: ratio < 2.0: ICA EDV<40 cm/s. 2. Less than 50% stenosis=ICA PSV < 125 cm/s: ratio < 2.0: ICA EDV<40 cm/s. 3. 50 to 69% stenosis=ICA PSV of 125 to 230 cm/s: ration 2.0 ? 4.0: ICA EDV 40-100 cm/s. 4. Greater than 70% stenosis to near occlusion= ICA PSV > 230 cm/s: ratio > 4.0: ICA EDV > 100 cm/s. 5. Near occlusion= ICA PSV velocities may be low or undetectable: variable ratio and ICA EDV. 6. Total occlusion=unable to detect flow.
[2023-03-25] MEDS: LORazepam 1 MG TAB PO PRN (18:39)
[2023-03-25] MEDS ORDERED: ATORVASTATIN 40 MG TAB PO SCH (21:00)
[2023-03-25] MEDS: TEMAZEPAM 15 MG CAP PO PRN (23:30)
[2023-03-26 06:15] LABS: Basophils # (A) 0.1 k/uL (0-0.2); Basophils % (A) 1 %; Eosinophils # (A) 0.2 k/uL (0-0.7); Eosinophils % (A) 3 %; HCT 37.6 % (34.0-46.0); HGB 13.1 gm/dL (11.4-16.0); Lymphocytes # (A) 2.2 k/uL (1.0-4.8); Lymphocytes % (A) 28 %; MCH 31.4 pg (25.0-35.0); MCHC 34.7 g/dL (31.0-37.0); MCV 90.6 fL (80.0-100.0); Monocytes # (A) 0.4 k/uL (0-1.0); Monocytes % (A) 6 %; Neutrophils # (A) 4.8 k/uL (1.3-7.7); Neutrophils % (A) 62 %; Platelet Count 220 k/uL (150-450); RBC 4.16 m/uL (3.80-5.40); RDW 13.1 % (11.5-15.5); WBC 7.8 k/uL (3.8-10.6)
[2023-03-26 06:16] LABS: ALT 15 U/L (4-34); AST 17 U/L (14-36); African American GFR (CKD) >90 (>60 ml/min/1.73 sqM); Albumin 2.9 g/dL (3.5-5.0); Alkaline Phosphatase 89 U/L (38-126); Anion Gap 4 mmol/L; Blood Urea Nitrogen 11 mg/dL (7-17); Calcium 8.7 mg/dL (8.4-10.2); Carbon Dioxide 27 mmol/L (22-30); Chloride 106 mmol/L (98-107); Creatine Kinase <20 U/L (30-135); Glucose 92 mg/dL (74-99); Non-African American GFR(CKD) 80 (>60 ml/min/1.73 sqM); Potassium 3.5 mmol/L (3.5-5.1); Sodium 137 mmol/L (137-145); Total Bilirubin 0.6 mg/dL (0.2-1.3); Total Protein 5.1 g/dL (6.3-8.2)
[2023-03-26] MEDS ORDERED: ASPIRIN 325 MG TAB PO SCH (09:00)
[2023-03-26] MEDS ORDERED: ATORVASTATIN 40 MG TAB PO SCH (09:00)
--- NOTE | 2023-03-26 09:33 | P.CNNES ---
History of Present Illness Consult date: 03/25/23 Requesting physician: Macario Jimenez Reason for Consult: CVA History of Present Illness: Patient is a 72-year-old right-handed female with history of hypertension came to the hospital today at 9:17 AM for recurrent episodes of left-sided numbness. Patient states that she developed numbness of the left side of the face, arm and leg last night at 10 PM when she was going to bed, trying to go to sleep. There was no associated facial droop, focal weakness or slurred speech. She also complained of burning in the left posterior parietal region. This morning she woke up and symptoms were still present, therefore she came to the ER. Patient was not a candidate for TPA, as symptoms have been present for over 12 hours. Patient states that she had "mini stroke" 6 years ago, when she presented with similar symptoms affecting left side of the body, including face arm and leg. The symptoms lasted "for a day". Patient states that she was hospitalized a few months ago for similar symptoms involving the left side of the face. Patient has been having intermittent symptoms of left facial numbness, pointing to the left cheek region occurring every couple weeks, lasting for a day. The left arm and left leg only was involved with her "mini stroke" 6 years ago and with last night presentation. Vital signs on arrival blood pressure 128/84, pulse rate 62, temperature 98.0. Blood test shows normal CBC, PT/PTT, sodium 138, potassium 2.8, normal renal and hepatic panel, troponin negative, CK normal. EKG shows sinus rhythm with occasional supraventricular premature complexes. Chest x-ray revealed no evidence for acute pulmonary disease. CT head showed age-related atrophic and chronic small vessel ischemic change without acute intracranial process seen at this time. I personally reviewed CT head, agree with the findings. Visualized paranasal sinuses are clear. CTA of head and neck revealed no significant diameter reduction to account for the patient's symptoms. CTA of the head showed no abnormality. Carotid Doppler performed showed less than 50% stenosis of bilateral carotid bifurcation. Antegrade flow in both vertebral arteries. Home medications include lisinopril and lorazepam. Patient does not take any antiplatelet medication or aspirin at home. Patient was a light smoker, 4-5 cigarettes per day, smoked off and on, but quit 25 years ago. Patient has hypertension, but denies diabetes. Denies hyperlipidemia. Review of Systems Constitutional: Reports weight loss, Denies chills (Cold all day), Denies fever Eyes: denies blurred vision, denies diplopia, denies pain Ears: deny: decreased hearing, ear discharge Ears, nose, mouth and throat: Reports headache, Denies sore throat Cardiovascular: Reports chest pain (Costochondritis), Denies shortness of breath Respiratory: Denies cough, Denies excessive sputum Gastrointestinal: Denies abdominal pain, Denies diarrhea, Denies nausea, Denies vomiting Musculoskeletal: Reports neck pain, Denies low back pain, Denies myalgias Integumentary: Denies pruritus, Denies rash Neurological: Reports as per HPI Psychiatric: Reports anxiety, Denies depression Endocrine: Reports fatigue, Reports weight change Hematologic/Lymphatic: Denies easy bleeding, Denies easy bruising Past Medical History Past Medical History: Coronary Artery Disease (CAD), Chest Pain / Angina, CVA/TIA, Hypertension, Osteoarthritis (OA) Additional Past Medical History / Comment(s): TIA, colitis, uterine fibroids-has sx, rt eye start of cataract, "gets fluid around heart" History of Any Multi-Drug Resistant Organisms: None Reported Past Surgical History: Bowel Resection, Cholecystectomy, Heart Catheterization, Hysterectomy, Joint Replacement Additional Past Surgical History / Comment(s): L knee replacement, colonscopy December 2015, total hysterectomy. 3 surgeries to lt knee Past Anesthesia/Blood Transfusion Reactions: No Reported Reaction Past Psychological History: Anxiety Additional Psychological History / Comment(s): Occational anxiety and takes ativan. Smoking Status: Former smoker Past Alcohol Use History: None Reported Past Drug Use History: None Reported - Past Family History Father Family Medical History: Diabetes Mellitus, Hypertension Mother Family Medical History: Cancer, Congestive Heart Failure (CHF) Brother(s) Family Medical History: Chest Pain / Angina, Coronary Artery Disease (CAD) Sister(s) Family Medical History: CVA/TIA Son(s) Family Medical History: Coronary Artery Disease (CAD) Medications and Allergies Home Medications Medication Instructions Recorded Confirmed Type LORazepam [Ativan] 1 mg PO BID PRN 05/06/15 03/25/23 History lisinopriL [Zestril] 20 mg PO DAILY@1000 03/25/23 03/25/23 History Allergies Allergy/AdvReac Type Severity Reaction Status Date / Time codeine Allergy Rash/Hives Verified 03/25/23 14:28 Penicillins Allergy Rash/Hives Verified 03/25/23 14:28 pneumococcal vaccine Allergy Unknown Verified 03/25/23 14:28 Tetanus Vaccines and Toxoid Allergy Unknown Verified 03/25/23 14:28 [Tetanus Vaccines & Toxoid] ketorolac [From Toradol] AdvReac Nausea & Verified 03/25/23 14:28 Vomiting Sulfa (Sulfonamide AdvReac Nausea & Verified 03/25/23 14:28 Antibiotics) Vomiting & Diarrhea Physical Examination - Vital Signs Vital Signs: Vital Signs Temp Pulse Pulse Resp BP BP Pulse Ox 03/25/23 16:52 131/78 03/25/23 15:25 98.0 F 59 L 16 173/88 96 03/25/23 14:35 97.9 F 57 L 16 176/84 98 03/25/23 14:29 59 L 03/25/23 14:15 98.2 F 63 18 165/81 98 03/25/23 14:00 56 L 18 147/82 97 03/25/23 13:45 56 L 18 154/81 97 03/25/23 13:30 53 L 18 152/89 98 03/25/23 13:00 98.2 F 56 L 18 159/91 97 03/25/23 12:45 57 L 18 161/89 96 03/25/23 12:15 98.1 F 52 L 18 160/87 98 03/25/23 11:45 98.1 F 52 L 18 162/77 98 03/25/23 11:23 50 L 18 168/92 100 03/25/23 11:15 98.2 F 52 L 17 173/101 99 03/25/23 10:45 50 L 18 173/89 98 03/25/23 10:30 54 L 18 166/86 99 03/25/23 10:15 57 L 18 149/91 98 03/25/23 10:00 98.1 F 62 18 146/88 98 03/25/23 09:48 54 L 18 174/92 99 03/25/23 09:18 98 F 62 18 128/84 98 Intake and Output 03/25/23 03/25/23 03/25/23 06:59 14:59 22:59 Intake Total 110 Balance 110 Intake: Oral 110 Other: Voiding Method Toilet # Voids 1 Weight 61.235 kg Patient is an elderly female, in no acute distress. Patient is very thin build. Patient is alert awake oriented to time place and person. Speech and language functions are normal. Patient can name and repeat very well. No aphasia or dysarthria. Attention, concentration and fund of knowledge is adequate. On cranial nerve examination, pupils are equal, round and reacting to light, visual mosqueda are full on confrontation, with no neglect on double simultaneous stimulation. Extraocular muscles are intact with no nystagmus. Face is symmetric, tongue protrudes to the midline. Palatal elevation and sensation normal, hearing and shoulder shrug normal, facial sensation normal. On muscle strength testing, there is no pronator drift and the strength is normal in arms and legs distally and proximally. Only the left rubber insulator at times appears 5-and other times appears 5, equal to the right side. Deep tendon reflexes are (right/left) biceps 2/2, brachioradialis 2/2, need to/fund, ankle 1/1 and plantars downgoing bilaterally. Sensory to touch is equal with no neglect on double simultaneous stimulation. Cerebellar function showed no ataxia for [id number] testing. No dysdiadochokinesia. No ataxia for zqyv-[id number] testing on either side. Tone and bulk of muscles normal. Gait deferred.. On general examination, there is no carotid bruit or murmur, S1-S2 audible. Chest is clear on consultation. Abdomen is soft nontender. No organomegaly, bowel sounds present. Peripheral pulses are present. No edema. Results - Laboratory Findings CBC and BMP: 03/26/23 05:38 03/26/23 05:38 Abnormal Lab Findings: Abnormal Labs 03/25/23 10:00 Potassium 2.8 L Carbon Dioxide 31 H BUN 3 L Total Bilirubin 1.5 H Assessment and Plan Assessment: * Recurrent episodes of numbness of left side of the body, off and on for last 6 years. Patient mostly gets numbness of the left cheek region, but last night the symptoms involved the left side of the body, including face arm and leg. She has similar presentation involving the entire left side of the body 6 years ago, which she describes as "mini stroke", that lasted for a day. * Hypertension Plan: * MRI of the brain evaluate for CVA, rule out other structural abnormalities * EEG rule out epileptiform activity * CTA of head and neck showed no stenosis, carotid Doppler normal. * 2-D echo to rule out embolic source * Lipid panel, A1c, TSH, B12, folate, CK * Telemetry monitoring * Agree with starting aspirin 325 mg daily for now. * Patient also started on Lipitor 40 mg daily. * Neurology will follow. Thank you for the consult.
--- NOTE | 2023-03-26 09:41 | CA ---
Transthoracic Echo Report Name: Kylie العراقي Age: 72 Gender: F : 1950 Exam Date: 03/26/2023 08:12 Exam Location: [facility] Ht (in): 67 Wt (lb): 135 Ordering Physician: Kasi Fuentes MD Attending/Referring Phys: Petroleum Inspector Shirley Cook [facility] Procedure CPT: Indications: Slurred speech, CVA Cardiac Hx: Technical Quality: Fair Contrast 1: Total Dose (mL): Contrast 2: Total Dose (mL): MEASUREMENTS (Male / Female) Normal Values 2D ECHO LV Diastolic Diameter PLAX 4.3 cm 4.2 - 5.9 / 3.9 - 5.3 cm LV Systolic Diameter PLAX 3.2 cm IVS Diastolic Thickness 1.0 cm 0.6 - 1.0 / 0.6 - 0.9 cm LVPW Diastolic Thickness 0.9 cm 0.6 - 1.0 / 0.6 - 0.9 cm LV Relative Wall Thickness 0.4 Ascending Aorta Diameter 3.4 cm M-MODE Aortic Root Diameter MM 3.2 cm LA Systolic Diameter MM 3.8 cm LA Ao Ratio MM 1.2 AV Cusp Separation MM 2.1 cm DOPPLER AV Peak Velocity 133.7 cm/s AV Peak Gradient 7.1 mmHg AV Mean Velocity 88.8 cm/s AV Mean Gradient 3.6 mmHg AV Velocity Time Integral 23.7 cm LVOT Peak Velocity 98.0 cm/s LVOT Peak Gradient 3.8 mmHg LVOT Velocity Time Integral 17.1 cm Mitral E Point Velocity 37.7 cm/s Mitral A Point Velocity 64.7 cm/s Mitral E to A Ratio 0.6 MV Deceleration Time 308.7 ms LV E' Lateral Velocity 7.9 cm/s Mitral E to LV E' Lateral Ratio 4.8 LV E' Septal Velocity 5.2 cm/s Mitral E to LV E' Septal Ratio 7.3 TR Peak Velocity 217.3 cm/s TR Peak Gradient 18.9 mmHg Right Atrial Pressure 3.0 mmHg Pulmonary Artery Systolic Pressu 21.9 mmHg Right Ventricular Systolic Press 21.9 mmHg FINDINGS Left Ventricle Normal Left ventricular size, wall thickness, systolic function with no obvious regional wall motion abnormalities. Left ventricular ejection fraction is estimated at 55%. Normal ejection fraction no wall motion abnormalities Right Ventricle Normal right ventricular size and function. Right Atrium Normal right atrial size. Left Atrium Normal left atrial size. Mitral Valve Structurally normal mitral valve. Trace mitral regurgitation. Aortic Valve Trileaflet aortic valve. Trace aortic regurgitation. Tricuspid Valve Structurally normal tricuspid valve. Mild tricuspid regurgitation. Pulmonic Valve Structurally normal pulmonic valve. Mild pulmonic regurgitation. Pericardium No pericardial effusion. Aorta Normal size aortic root and proximal ascending aorta. CONCLUSIONS Normal LV size and systolic function. No significant abnormality on the Doppler exam. No pericardial effusion. No pulmonary hypertension Previewed by: Dr. Dawson Robertson MD (Electronically Signed) Final Date: 26 March 2023 09:40
--- NOTE | 2023-03-26 11:51 | P.PN ---
Subjective Progress Note Date: 03/26/23 patient is a 72-year-old lady with past medical significant for TIA, hypertension, hyperlipidemia who presented to The ER because of left-sided numbness that started yesterday. Patient stated that she was all right yesterday when she started noticing that her face was numb on the left side, it was followed by numbness of her left upper and lower extremity. Denied any slurred speech. Denied any facial droop. Denied any weakness of any extremity. This numbness persisted. Denied any recent fall. Denied any complaint of unsteady gait. Because of persistent numbness, patient came to the ER Initial lab work done in the ER showed WBC 6.7, hemoglobin 14.5, platelet count 09/18/2013, sodium 138, potassium 2.8, BUN 3, creatinine 0.72, bilirubin 1.5, AST 19, ALT 16, CT brain done showed age-related atrophic and chronic small vessel ischemic change without acute intracranial process CTA head and neck done, no acute stenosis noted Patient was admitted to medicine service 03/26. Patient seen and examined. Patient ambulating in the room. States numbness of her face has improved REVIEW OF SYSTEMS: CONSTITUTIONAL: No fever, no malaise,. CARDIOVASCULAR: No chest pain, no palpitations, no syncope. PULMONARY: No shortness of breath, no cough, GASTROINTESTINAL: No diarrhea, no nausea, no vomiting, no abdominal pain. NEUROLOGICAL: No headaches, no weakness, PHYSICAL EXAMINATION: GENERAL: The patient is alert and oriented x3, not in any acute distress. Well developed, well nourished. HEENT: Pupils are round and equally reacting to light. EOMI. No scleral icterus. No conjunctival pallor. Normocephalic, atraumatic. No pharyngeal erythema. No thyromegaly. CARDIOVASCULAR: S1 and S2 present. No murmurs, rubs, or gallops. PULMONARY: Chest is clear to auscultation, no wheezing or crackles. ABDOMEN: Soft, nontender, nondistended, normoactive bowel sounds. No palpable organomegaly. MUSCULOSKELETAL: No joint swelling or deformity. EXTREMITIES: No cyanosis, clubbing, or pedal edema. NEUROLOGICAL: Alert awake oriented 3, muscle strength 5 over 5 in all extremities, cranial nerves II-12 intact, reduced sensation to touch on left side of face SKIN: No rashes. Assessment and plan Strokelike symptoms Hypokalemia Hypertension Monitor vital signs Monitor CBC Monitor CMP Continue telemetry monitoring 2-D echo done showed normal LVEF of 55%, no wall motion abnormalities Ultrasound Carotid Showed Less Than 50% Stenosis Follow-up on MRI brain Follow-up EEG Continue aspirin Lipitor Neurology following Labs and medication were reviewed.. Continue same treatment. Continue with symptomatic treatment. Resume home medication. Monitor labs and vitals. DVT and GI prophylaxis. Further recommendations as per clinical course of the patient Dictation was produced using [employer] dictation software. please excuse any grammatical, word or spelling errors. Objective - Vital Signs Vital signs: Vital Signs Temp 97.8 F 03/26/23 08:35 Pulse 71 03/26/23 08:35 Resp 18 03/26/23 08:35 BP 158/87 03/26/23 08:35 Pulse Ox 97 03/26/23 08:35 FiO2 21 03/25/23 21:03 Intake & Output 03/25/23 03/26/23 03/26/23 18:59 06:59 18:59 Intake Total 110 540 240 Balance 110 540 240 Weight 61.235 kg Intake: Oral 110 540 240 Other: Voiding Method Toilet Toilet Toilet # Voids 1 1 - Labs CBC & Chem 7: 03/26/23 05:38 03/26/23 05:38 Labs: Abnormal Lab Results - Last 24 Hours (Table) 03/25/23 03/26/23 Range/Units 10:00 05:38 Potassium 2.8 L (3.5-5.1) mmol/L Carbon Dioxide 31 H (22-30) mmol/L BUN 3 L (7-17) mg/dL Total Bilirubin 1.5 H (0.2-1.3) mg/dL Creatine Kinase <20 L (30-135) U/L Total Protein 5.1 L (6.3-8.2) g/dL Albumin 2.9 L (3.5-5.0) g/dL
--- NOTE | 2023-03-26 13:21 | MR ---
EXAMINATION TYPE: MR brain wo con DATE OF EXAM: 03/26/2023 1:14 PM COMPARISON: 05/17/2013 HISTORY: Left side numbness. FINDINGS: The ventricles, basal cisterns and sulci overlying the cerebral convexities are mildly enlarged. Prom inence of the perivascular spaces of her carotid. There is evidence of mild periventricular white matter ischemic demyelination. Remote deep white matter insults are also noted. No acute edema is seen on diffusion weighted imaging. There is no evidence for midline shift or mass effect. Acute intracranial hemorrhage or extra-axial collection is not evident. The paranasal sinuses and mastoid air cells are well-aerated. IMPRESSION: Age-related atrophic and chronic small vessel ischemic change. No acute intracranial process at this time.
[2023-03-26 17:33] LABS: Chol/HDL Ratio 3.01 Ratio; LDL Cholesterol,Calculated 74.4 mg/dL (0.0-131.0); VLDL Calculation 19.12 mg/dL (5.00-40.00)
[2023-03-26] MEDS: LORazepam 1 MG TAB PO PRN (18:59)
[2023-03-26] MEDS: FOLIC ACID 1 MG TAB PO SCH (18:59)
[2023-03-26] MEDS: TEMAZEPAM 15 MG CAP PO PRN (20:53)
--- NOTE | 2023-03-27 00:59 | EEG ---
ELECTROENCEPHALOGRAM REPORT PREAMBLE: This is a 72-year-old female with recurrent episode of left-sided numbness. EEG FINDINGS: This is a 21-channel digital EEG recorded with video component, utilizing 10/20 international system with referential and bipolar montages. Background consists of well developed, well regulated moderate voltage activity in 9-10 hertz alpha. Background is posterior dominant and reactive to eye opening and closing. Photic driving response was seen with some flash frequencies. Intermittent focal slowing in theta, and very occasional delta range was seen in the left temporal region. Some sharply contoured waves were seen, but did not appear epileptiform. Different stages of sleep were not seen. No electrographic seizure was recorded. IMPRESSION: This is a mildly abnormal EEG because of intermittent focal slowing in the left temporal region. This suggests focal cortical neuronal dysfunction. No obvious epileptiform activity was seen. CARMEN / MISSYN: [id number] /
[2023-03-27] MEDS: LORazepam 1 MG TAB PO PRN (05:18)
[2023-03-27 07:54] VITALS: BP 124/72; PULSE 53; RESP 14; TEMP 98.4
[2023-03-27] MEDS: FOLIC ACID 1 MG TAB PO SCH (08:31)
[2023-03-27] MEDS ORDERED: ATORVASTATIN 20 MG TAB PO SCH (09:00)
[2023-03-27] MEDS ORDERED: ASPIRIN 81 MG PO SCH (09:00)
[2023-03-27] MEDS ORDERED: lisinopriL 20 MG TAB PO SCH (10:30)
--- NOTE | 2023-03-27 10:40 | P.PN ---
Subjective Progress Note Date: 03/26/23 Patient was seen for a follow-up. Patient is laying comfortably in the bed. The numbness has mostly resolved. Patient's son was also present today. Objective - Vital Signs Vital signs: Vital Signs Temp 98.3 F 03/26/23 16:00 Pulse 54 L 03/26/23 16:00 Resp 18 03/26/23 16:00 BP 156/80 03/26/23 16:00 Pulse Ox 100 03/26/23 16:00 FiO2 21 03/25/23 21:03 Intake & Output 03/25/23 03/26/23 03/26/23 18:59 06:59 18:59 Intake Total 110 540 590 Balance 110 540 590 Weight 61.235 kg Intake: Oral 110 540 590 Other: Voiding Method Toilet Toilet Toilet # Voids 1 1 - Exam Mental status, speech and limited function is a normal. Cranial nerves are normal. Sensations equal. Muscle strength normal. - Labs CBC & Chem 7: 03/26/23 05:38 03/26/23 05:38 Labs: Abnormal Lab Results - Last 24 Hours (Table) 03/26/23 Range/Units 05:38 Creatine Kinase <20 L (30-135) U/L Total Protein 5.1 L (6.3-8.2) g/dL Albumin 2.9 L (3.5-5.0) g/dL Assessment and Plan Assessment: * Recurrent episodes of numbness of left side of the body, off and on for last 6 years. Patient mostly gets numbness of the left cheek region, but last night the symptoms involved the left side of the body, including face arm and leg. She has similar presentation involving the entire left side of the body 6 years ago, which she describes as "mini stroke", that lasted for a day. * Hypertension Plan: * MRI of the brain revealed age-related atrophic and chronic small vessel ischemic change. No acute process. I personally reviewed MRI, I agree with the findings. * EEG was mildly abnormal because of intermittent focal slowing in the left temporal region. This suggests focal cortical neuronal dysfunction. No obvio us epileptiform activity was seen. No indication for antiepileptic medication. * CTA of head and neck showed no stenosis, carotid Doppler normal. * 2-D echo revealed normal left ventricular size and systolic function with EF 55%. No regional wall motion abnormalities. Left atrial size is normal. No embolic source. * Lipid panel cholesterol 140, LDL 74, HDL 46 and triglycerides 95. Patient started on low-dose Lipitor 20 mg daily. 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 * Hemoglobin A1c 5.3, TSH 2.2, B12 622, folate 5.9, CK 32. We will start folate replacement. * Telemetry monitoring showing no arrhythmia. * Patient states that she was taking aspirin 81 mg daily at home. We will increase aspirin to 162 mg daily. * Neurologically clear for discharge.
--- NOTE | 2023-03-27 13:05 | P.DS ---
Providers Date of admission: 03/25/23 13:48 Expected date of discharge: 03/27/23 Attending physician: Kasi Fuentes MD Consults: 03/25/23 14:03 Consult Physician Urgent Consulting Provider: Raissa Llamas Consult Reason/Comments: CVA Do you want consulting provider notified?: Yes Primary care physician: Hahnemann Hospital Course: Discharge diagnoses; TIA Hypokalemia Hypertension Hospital course; patient is a 72-year-old lady with past medical significant for TIA, hypertension, hyperlipidemia who presented to The ER because of left-sided numbness that started yesterday. Patient stated that she was all right yesterday when she started noticing that her face was numb on the left side, it was followed by numbness of her left upper and lower extremity. Denied any slurred speech. Denied any facial droop. Denied any weakness of any extremity. This numbness persisted. Denied any recent fall. Denied any complaint of unsteady gait. Because of persistent numbness, patient came to the ER Initial lab work done in the ER showed WBC 6.7, hemoglobin 14.5, platelet count 09/18/2013, sodium 138, potassium 2.8, BUN 3, creatinine 0.72, bilirubin 1.5, AST 19, ALT 16, CT brain done showed age-related atrophic and chronic small vessel ischemic change without acute intracranial process CTA head and neck done, no acute stenosis noted Patient was admitted to medicine service 03/26. Patient seen and examined. Patient ambulating in the room. States numbness of her face has improved 03/27. Patient seen and examined. MRI brain donenegative for acute intracranial process EEG negative for seizures. Neurology cleared the patient for discharge PHYSICAL EXAMINATION: GENERAL: The patient is alert and oriented x3, not in any acute distress. Well developed, well nourished. HEENT: Pupils are round and equally reacting to light. EOMI. No scleral icterus. No conjunctival pallor. Normocephalic, atraumatic. No pharyngeal erythema. No thyromegaly. CARDIOVASCULAR: S1 and S2 present. No murmurs, rubs, or gallops. PULMONARY: Chest is clear to auscultation, no wheezing or crackles. ABDOMEN: Soft, nontender, nondistended, normoactive bowel sounds. No palpable organomegaly. MUSCULOSKELETAL: No joint swelling or deformity. EXTREMITIES: No cyanosis, clubbing, or pedal edema. NEUROLOGICAL: Gross neurological examination did not reveal any focal deficits. SKIN: No rashes. Dictation was produced using [employer] dictation software. please excuse any grammatical, word or spelling errors. Patient Condition at Discharge: Good Plan - Discharge Summary Discharge Rx Participant: No New Discharge Prescriptions: New Aspirin 162 mg PO DAILY #30 tab Folic Acid 1 mg PO DAILY #30 tab Atorvastatin Calcium [Lipitor] 40 mg PO DAILY 30 Days #30 tab Continue LORazepam [Ativan] 1 mg PO BID PRN PRN Reason: Anxiety lisinopriL [Zestril] 20 mg PO DAILY@1000 Discharge Medication List LORazepam [Ativan] 1 mg PO BID PRN 05/06/15 [History] lisinopriL [Zestril] 20 mg PO DAILY@1000 03/25/23 [History] Aspirin 162 mg PO DAILY #30 tab 03/27/23 [Rx] Atorvastatin Calcium [Lipitor] 40 mg PO DAILY 30 Days #30 tab 03/27/23 [Rx] Folic Acid 1 mg PO DAILY #30 tab 03/27/23 [Rx] Follow up Appointment(s)/Referral(s): Ivan Suresh MD [STAFF PHYSICIAN] - 1 Week (Must have refferal from your PCP in order to make follow-up.) Pantera Fuentes DO [Primary Care Provider] - 1-2 days (Office will call you with appointment. Please have your pcp refer you to Dr. Suresh. ) Patient Instructions/Handouts: Hypokalemia (DC), Stroke (DC) Discharge Disposition: HOME SELF-CARE
== END 2023-03-27 12:03 | disposition home or self-care (01) | DRG 69 ==
LOC: EC 09:17 → 3SCARD 13:48 → 4SSUR 03-26 23:42
PROVIDERS: ADMIT Internal Medicine; ATTEND Internal Medicine
DX: G45.9 Transient cerebral ischemic attack, unspecified (principal); E78.5 Hyperlipidemia, unspecified; Z28.310 Unvaccinated for COVID-19; I67.89 Other cerebrovascular disease; E87.6 Hypokalemia; I10 Essential (primary) hypertension; F41.9 Anxiety disorder, unspecified; I25.10 Atherosclerotic heart disease of native coronary artery without angina pectoris; I49.1 Atrial premature depolarization; H26.9 Unspecified cataract; M19.90 Unspecified osteoarthritis, unspecified site; Z79.899 Other long term (current) drug therapy; Z86.73 Personal history of transient ischemic attack (TIA), and cerebral infarction without residual deficits; Z96.652 Presence of left artificial knee joint; Z87.891 Personal history of nicotine dependence; Z88.6 Allergy status to analgesic agent; Z88.5 Allergy status to narcotic agent; Z88.0 Allergy status to penicillin; Z88.2 Allergy status to sulfonamides; Z88.7 Allergy status to serum and vaccine
CPT/HCPCS: 36415; 70450; 70496; 70498; 70551; 71046; 80053; 80061; 82550; 82607; 82746; 83036; 84443; 84484; 85025; 85610; 85730; 93005; 93306; 93880; 94760; 95816; 96374; 99285

== ENCOUNTER 2023-09-10 14:37 | Inpatient (IN) | payer MEDICARE, OTHER ==
--- NOTE | 2023-09-10 15:12 | ED ---
General Adult HPI - General Source: patient, RN notes reviewed Mode of arrival: ambulatory Limitations: no limitations <Svetlana Linder - Last Filed: 09/10/23 15:06> <Tim Latham - Last Filed: 09/10/23 18:40> - General Chief complaint: Chest Pain Stated complaint: chest pain Time Seen by Provider: 09/10/23 15:09 - History of Present Illness Initial comments: 73 year old female presents to the emergency department for evaluation of shortness of breath, difficulty swallowing x3 days. Patient reports pain in her anterior neck. She states that she has been tolerating small amounts of fluids for the past 3 days. She is tolerating oral secretions. (Svetlana Linder) - Related Data Home Medications Medication Instructions Recorded Confirmed LORazepam [Ativan] 1 mg PO BID PRN 05/06/15 03/25/23 lisinopriL [Zestril] 20 mg PO DAILY@1000 03/25/23 03/25/23 Previous Rx's Medication Instructions Recorded Aspirin 162 mg PO DAILY #30 tab 03/27/23 Atorvastatin Calcium [Lipitor] 40 mg PO DAILY 30 Days #30 tab 03/27/23 Folic Acid 1 mg PO DAILY #30 tab 03/27/23 Allergies Allergy/AdvReac Type Severity Reaction Status Date / Time codeine Allergy Rash/Hives Verified 09/10/23 14:50 Penicillins Allergy Rash/Hives Verified 09/10/23 14:50 pneumococcal vaccine Allergy Unknown Verified 09/10/23 14:50 Tetanus Vaccines and Toxoid Allergy Unknown Verified 09/10/23 14:50 [Tetanus Vaccines & Toxoid] ketorolac [From Toradol] AdvReac Nausea & Verified 09/10/23 14:50 Vomiting Sulfa (Sulfonamide AdvReac Nausea & Verified 09/10/23 14:50 Antibiotics) Vomiting & Diarrhea Review of Systems ROS Other: All systems not noted in ROS Statement are negative. <Svetlana Linder - Last Filed: 09/10/23 15:06> ROS Other: All systems not noted in ROS Statement are negative. <Tim Latham - Last Filed: 09/10/23 18:40> ROS Statement: Those systems with pertinent positive or pertinent negative responses have been documented in the HPI. Past Medical History Past Medical History: Coronary Artery Disease (CAD), Chest Pain / Angina, CVA/TIA, Hypertension, Osteoarthritis (OA) Additional Past Medical History / Comment(s): TIA, colitis, uterine fibroids-has sx, rt eye start of cataract, "gets fluid around heart" History of Any Multi-Drug Resistant Organisms: None Reported Past Surgical History: Bowel Resection, Cholecystectomy, Heart Catheterization, Hysterectomy, Joint Replacement Additional Past Surgical History / Comment(s): L knee replacement, colonscopy December 2015, total hysterectomy. 3 surgeries to lt knee Past Anesthesia/Blood Transfusion Reactions: No Reported Reaction Past Psychological History: Anxiety Smoking Status: Former smoker Past Alcohol Use History: None Reported Past Drug Use History: None Reported - Past Family History Father Family Medical History: Diabetes Mellitus, Hypertension Mother Family Medical History: Cancer, Congestive Heart Failure (CHF) Brother(s) Family Medical History: Chest Pain / Angina, Coronary Artery Disease (CAD) Sister(s) Family Medical History: CVA/TIA Son(s) Family Medical History: Coronary Artery Disease (CAD) <Svetlana Linder - Last Filed: 09/10/23 15:06> General Exam Limitations: no limitations <Svetlana Linder - Last Filed: 09/10/23 15:06> General appearance: alert, in no apparent distress Head exam: Present: atraumatic, normocephalic Eye exam: Present: normal appearance, PERRL ENT exam: Present: normal oropharynx, mucous membranes moist Neck exam: Absent: lymphadenopathy, thyromegaly Respiratory exam: Present: normal lung sounds bilaterally. Absent: respiratory distress, wheezes Cardiovascular Exam: Present: regular rate, normal rhythm GI/Abdominal exam: Present: soft. Absent: distended, tenderness, guarding Extremities exam: Present: normal inspection, normal capillary refill Neurological exam: Present: alert, oriented X3, CN II-XII intact. Absent: motor sensory deficit Psychiatric exam: Present: normal affect, normal mood Skin exam: Present: warm, dry, intact. Absent: cyanosis, diaphoretic <Tim Latham - Last Filed: 09/10/23 18:40> - General Exam Comments Initial Comments: Visual Physical Exam Vital signs reviewed General: Well-appearing, nontoxic, no acute distress. Head: Normocephalic, atraumatic Eyes: PERRLA, EOMI ENT: Airway patent Chest: Nonlabored breathing Skin: No visual rash, normal skin tone Neuro: Alert and oriented 3 Musculoskeletal: No gross abnormalities (Svetlana Linder) Course Vital Signs 09/10/23 14:48 Temperature 97.8 F Pulse Rate 66 Respiratory 16 Rate Blood Pressure 130/87 O2 Sat by Pulse 100 Oximetry Medical Decision Making <Svetlana Linder - Last Filed: 09/10/23 15:06> - Lab Data Result diagrams: 09/10/23 15:15 09/10/23 15:15 <Tim Latham - Last Filed: 09/10/23 18:40> - Medical Decision Making Quick note preformed by Svetlana Linder PA-C (Svetlana Linder) Was pt. sent in by a medical professional or institution ([facility], [facility], urgent care, hospital, or retirement...) When possible be specific @ -No Did you speak to anyone other than the patient for history (EMS, parent, family, police, friend...)? What history was obtained from this source @ -No Did you review nursing and triage notes (agree or disagree)? Why? @ -I reviewed and agree with nursing and triage notes Were old charts reviewed (outside hosp., previous admission, EMS record, old EKG, old radiological studies, urgent care reports/EKG's, retirement records)? Report findings @ -No old charts were reviewed Differential Diagnosis (chest pain, altered mental status, abdominal pain women, abdominal pain men, vaginal bleeding, weakness, fever, dyspnea, syncope, headache, dizziness, GI bleed, back pain, seizure, CVA, palpatations, mental health, musculoskeletal)? @ -Esophageal stricture, esophageal foreign body, ACS EKG interpreted by me (3pts min.). @ -EKG: Sinus rhythm rate of 60, ND interval 173, QRS duration 104, QTc [address] segment elevation. X-rays interpreted by me (1pt min.). @ -X-rays of the chest and soft tissue neck are unremarkable. CT interpreted by me (1pt min.). @ -None done U/S interpreted by me (1pt. min.). @ -None done What testing was considered but not performed or refused? (CT, X-rays, U/S, labs)? Why? @ -None What meds were considered but not given or refused? Why? @ -None Did you discuss the management of the patient with other professionals ( professionals i.e. , PA, [facility] [facility], lab, RT, psych nurse, social service manager, shingle shearing machine operator, teacher, energy control officer, behavioral health case manager)? Give summary @ -Case discussed with Dr. Hernandes, [facility] Was smoking cessation discussed for >3mins.? @ -No Was critical care preformed (if so, how long)? @ -No Were there social determinants of health that impacted care today? How? (Homelessness, low income, unemployed, alcoholism, drug addiction, transportation, low edu. Level, literacy, decrease access to med. care, fdc, rehab)? @ -No Was there de-escalation of care discussed even if they declined (Discuss DNR or withdrawal of care, Hospice)? DNR status @ -No What co-morbidities impacted this encounter? (DM, HTN, Smoking, COPD, CAD, Cancer, CVA, ARF, Chemo, Hep., AIDS, mental health diagnosis, sleep apnea, morbid obesity)? @ -None Was patient admitted / discharged? Hospital course, mention meds given and route, prescriptions, significant lab abnormalities, going to OR and other pertinent info. @ -73-year-old female with difficulty swallowing and painful swallowing over the past several days. There is no abnormality visualized in the posterior oropharynx. There is no noted soft tissue mass or thyromegaly on exam. X-rays show patent upper airway with no acute abnormality identified. The patient is afebrile with normal laboratory testing. I did discuss the case with Dr. Hernandes who will perform upper endoscopy tomorrow. Patient observed to internal medicine. Undiagnosed new problem with uncertain prognosis? @ -No Drug Therapy requiring intensive monitoring for toxicity (Heparin, Nitro, Insulin, Cardizem)? @ -No Were any procedures done? @ -No Diagnosis/symptom? @ -Difficulty swallowing Acute, or Chronic, or Acute on Chronic? @ -Acute Uncomplicated (without systemic symptoms) or Complicated (systemic symptoms)? @ -Default Side effects of treatment? @ -No Exacerbation, Progression, or Severe Exacerbation? @ -No Poses a threat to life or bodily function? How? (Chest pain, USA, IA, pneumonia, PE, COPD, DKA, ARF, appy, cholecystitis, CVA, Diverticulitis, Homicidal, Suicidal, threat to staff... and all critical care pts) @ -No (Tim Latham) - Lab Data Lab Results 09/10/23 09/10/23 09/10/23 Range/Units 15:15 15:15 15:15 WBC 5.6 (3.8-10.6) k/uL RBC 4.37 (3.80-5.40) m/uL Hgb 13.8 (11.4-16.0) gm/dL Hct 39.2 (34.0-46.0) % MCV 89.6 (80.0-100.0) fL MCH 31.5 (25.0-35.0) pg MCHC 35.1 (31.0-37.0) g/dL RDW 12.9 (11.5-15.5) % Plt Count 180 (150-450) k/uL MPV 7.2 Neutrophils % 61 % Lymphocytes % 31 % Monocytes % 5 % Eosinophils % 2 % Basophils % 1 % Neutrophils # 3.4 (1.3-7.7) k/uL Lymphocytes # 1.8 (1.0-4.8) k/uL Monocytes # 0.3 (0-1.0) k/uL Eosinophils # 0.1 (0-0.7) k/uL Basophils # 0.0 (0-0.2) k/uL PT 11.0 (10.0-12.5) sec INR 1.0 (<1.2) APTT 25.5 (22.0-30.0) sec Sodium 138 (137-145) mmol/L Potassium 2.9 L (3.5-5.1) mmol/L Chloride 107 (98-107) mmol/L Carbon Dioxide 28 (22-30) mmol/L Anion Gap 3 mmol/L BUN 8 (7-17) mg/dL Creatinine 0.78 (0.52-1.04) mg/dL Est GFR (CKD-EPI)AfAm 89 (>60 ml/min/1.73 sqM) Est GFR (CKD-EPI)NonAf 77 (>60 ml/min/1.73 sqM) Glucose 96 (74-99) mg/dL Calcium 9.5 (8.4-10.2) mg/dL Magnesium 2.1 (1.6-2.3) mg/dL Total Bilirubin 1.1 (0.2-1.3) mg/dL AST 20 (14-36) U/L ALT 15 (4-34) U/L Alkaline Phosphatase 73 (38-126) U/L Troponin I (0.000-0.034) ng/mL Total Protein 6.2 L (6.3-8.2) g/dL Albumin 3.8 (3.5-5.0) g/dL 09/10/23 Range/Units 15:15 WBC (3.8-10.6) k/uL RBC (3.80-5.40) m/uL Hgb (11.4-16.0) gm/dL Hct (34.0-46.0) % MCV (80.0-100.0) fL MCH (25.0-35.0) pg MCHC (31.0-37.0) g/dL RDW (11.5-15.5) % Plt Count (150-450) k/uL MPV Neutrophils % % Lymphocytes % % Monocytes % % Eosinophils % % Basophils % % Neutrophils # (1.3-7.7) k/uL Lymphocytes # (1.0-4.8) k/uL Monocytes # (0-1.0) k/uL Eosinophils # (0-0.7) k/uL Basophils # (0-0.2) k/uL PT (10.0-12.5) sec INR (<1.2) APTT (22.0-30.0) sec Sodium (137-145) mmol/L Potassium (3.5-5.1) mmol/L Chloride (98-107) mmol/L Carbon Dioxide (22-30) mmol/L Anion Gap mmol/L BUN (7-17) mg/dL Creatinine (0.52-1.04) mg/dL Est GFR (CKD-EPI)AfAm (>60 ml/min/1.73 sqM) Est GFR (CKD-EPI)NonAf (>60 ml/min/1.73 sqM) Glucose (74-99) mg/dL Calcium (8.4-10.2) mg/dL Magnesium (1.6-2.3) mg/dL Total Bilirubin (0.2-1.3) mg/dL AST (14-36) U/L ALT (4-34) U/L Alkaline Phosphatase (38-126) U/L Troponin I <0.012 (0.000-0.034) ng/mL Total Protein (6.3-8.2) g/dL Albumin (3.5-5.0) g/dL Disposition <Svetlana Linder - Last Filed: 09/10/23 15:06> Is patient prescribed a controlled substance at d/c from ED?: No Time of Disposition: 18:40 <Tim Latham - Last Filed: 09/10/23 18:40> Clinical Impression: Hypokalemia, Dysphagia, Difficulty swallowing liquids Disposition: ADMITTED IP TO THIS HOSP Condition: Stable Referrals: Pantera Fuentes DO [Primary Care Provider] - 1-2 days
[2023-09-10 15:30] LABS: Basophils % (A) 1 %; Eosinophils # (A) 0.1 k/uL (0-0.7); Eosinophils % (A) 2 %; HCT 39.2 % (34.0-46.0); HGB 13.8 gm/dL (11.4-16.0); Lymphocytes # (A) 1.8 k/uL (1.0-4.8); Lymphocytes % (A) 31 %; MCH 31.5 pg (25.0-35.0); MCHC 35.1 g/dL (31.0-37.0); MCV 89.6 fL (80.0-100.0); Mean Platelet Volume 7.2; Monocytes # (A) 0.3 k/uL (0-1.0); Monocytes % (A) 5 %; Neutrophils # (A) 3.4 k/uL (1.3-7.7); Neutrophils % (A) 61 %; Platelet Count 180 k/uL (150-450); RBC 4.37 m/uL (3.80-5.40); RDW 12.9 % (11.5-15.5); WBC 5.6 k/uL (3.8-10.6)
[2023-09-10 15:47] LABS: ALT 15 U/L (4-34); AST 20 U/L (14-36); African American GFR (CKD) 89 (>60 ml/min/1.73 sqM); Albumin 3.8 g/dL (3.5-5.0); Alkaline Phosphatase 73 U/L (38-126); Anion Gap 3 mmol/L; Blood Urea Nitrogen 8 mg/dL (7-17); Calcium 9.5 mg/dL (8.4-10.2); Carbon Dioxide 28 mmol/L (22-30); Chloride 107 mmol/L (98-107); Glucose 96 mg/dL (74-99); Magnesium 2.1 mg/dL (1.6-2.3); Non-African American GFR(CKD) 77 (>60 ml/min/1.73 sqM); Potassium 2.9 mmol/L (3.5-5.1); Sodium 138 mmol/L (137-145); Total Bilirubin 1.1 mg/dL (0.2-1.3); Total Protein 6.2 g/dL (6.3-8.2)
--- NOTE | 2023-09-10 15:47 | XR ---
EXAMINATION TYPE: XR 2 views soft tissue neck, XR chest 2V DATE OF EXAM: 09/10/2023 COMPARISON: None HISTORY: 73-year-old female pain and difficulty swallowing, chest heaviness FINDINGS: Soft tissues neck: The nasopharyngeal and oropharyngeal airways are patent. Epiglottis and prevertebral soft tissues are satisfactory. No abnormal narrowing of the subglottic airway. There is [id number] on the left change in the mid to lower cervical spine. CHEST: Heart normal size. Aorta and pulmonary vasculature within normal limits. No consolidation or pleural effusion. IMPRESSION: 1. Soft tissues of the neck: Patent airway. No specific abnormality seen. 2. Chest: No acute cardiopulmonary process.
[2023-09-10 15:49] LABS: Partial Thromboplastin Time 25.5 sec (22.0-30.0)
[2023-09-10] MEDS ORDERED: POTASSIUM CHLORIDE ER 20 MEQ TAB.ER PO STA (17:49)
[2023-09-10] MEDS ORDERED: POTASSIUM BICARBONATE/CIT AC 20 MEQ TABLET.EFF PO ONE (18:05)
[2023-09-10] MEDS ORDERED: ONDANSETRON 4 MG/2 ML VIAL IVP PRN (18:34)
[2023-09-10] MEDS ORDERED: NALOXONE 0.4 MG/ML 1 ML VIAL IV PRN (18:34)
[2023-09-10] MEDS ORDERED: SODIUM CHLORIDE 0.9% 500 ML 500 ML IV ONE (18:34)
[2023-09-10] MEDS ORDERED: LORazepam 2 MG/ML INJ IV PRN (19:35)
[2023-09-10] MEDS: SODIUM CHLORIDE 0.9% 1,000 ML IV SCH (19:39)
[2023-09-10] MEDS: PANTOPRAZOLE 40 MG/10 ML VIAL IV SCH (19:39)
[2023-09-11] MEDS ORDERED: diphenhydrAMINE 50 MG/ML 1 ML VIAL IVP STA (00:03)
[2023-09-11] MEDS ORDERED: ACETAMINOPHEN TAB 325 MG TAB PO PRN (10:07)
[2023-09-11] MEDS ORDERED: BUSPAR PO SCH (10:15)
[2023-09-11] MEDS: LORazepam 1 MG TAB PO PRN ×2 (10:16→21:51)
[2023-09-11] MEDS: PANTOPRAZOLE 40 MG/10 ML VIAL IV SCH (10:18)
[2023-09-11] MEDS: SODIUM CHLORIDE 0.9% 1,000 ML IV SCH ×2 (10:19→21:52)
[2023-09-11] MEDS ORDERED: LIDOCAINE 1% INJ 10MG/ML (20 ML MDV) ONE (10:59)
[2023-09-11] MEDS ORDERED: PROPOFOL 10 MG/ML 20 ML VIAL IV ONE (10:59)
[2023-09-11] MEDS ORDERED: LACTATED RINGERS 1,000 ML IV ONE (11:00)
--- NOTE | 2023-09-11 11:00 | P.GSCN ---
History of Present Illness Consult date: 09/11/23 History of present illness: CHIEF COMPLAINT: Difficulty swallowing HISTORY OF PRESENT ILLNESS: This is a 73-year-old female who presented to the hospital with complaints of shortness of breath and difficulty swallowing x 5 days. She denies any abdominal pain. Denies any nausea or vomiting. She reports she has difficulty swallowing both solids and liquids. She has never had symptoms like this before. Her last EGD was over 10 years ago and she reports it as normal. PAST MEDICAL HISTORY: Coronary Artery Disease (CAD), Chest Pain / Angina, TIA, Hypertension, O steoarthritis (OA), colitis, uterine fibroids PAST SURGICAL HISTORY: Bowel Resection, Cholecystectomy, Heart Catheterization, Hysterectomy, Joint Replacement MEDICATIONS: See below ALLERGIES: See below SOCIAL HISTORY: No illicit drug use. REVIEW OF SYSTEMS: CONSTITUTIONAL: Denies fever or chills. HEENT: Denies blurred vision, vision changes, or eye pain. Denies hemoptysis CARDIOVASCULAR: Denies chest pain or pressure. RESPIRATORY: No shortness of breath. GASTROINTESTINAL: See HPI for pertinent findings HEMATOLOGIC: Denies bleeding disorders. GENITOURINARY: Denies any blood in urine or increased urinary frequency. SKIN: Denies pruitis. Denies rash. PHYSICAL EXAM: VITAL SIGNS: Reviewed GENERAL: Well-developed in no acute distress. HEENT: No sclera icterus. Extraocular movements grossly intact. Moist buccal mucosa. Head is atraumatic, normocephalic. No nasal drainage. ABDOMEN: Soft. Nondistended. Nontender NEUROLOGIC: Alert and oriented. Cranial nerves II through XII grossly intact. LABORATORY DATA: WBC 5.6 Hgb 13.8 platelets 180 Sodium 139 potassium 2.9 creatinine 0.78 Magnesium 2.1 Albumin 3.8 IMAGING: Soft tissues of the neck x-ray patent airway no specific abnormality seen. Chest x-ray no acute cardiopulmonary process. ASSESSMENT: 1. Dysphagia 2. Hypokalemia PLAN: -Patient scheduled for EGD today with Dr. Hernandes -Keep patient n.p.o. -Repeat potassium level -Continue IV fluids Physician Circus Laborer note has been reviewed by physician. Signing provider agrees with the documented findings, assessment, and plan of care. Past Medical History Past Medical History: Coronary Artery Disease (CAD), Chest Pain / Angina, CVA/TIA, Hypertension, Osteoarthritis (OA) Additional Past Medical History / Comment(s): TIA, colitis, uterine fibroids-has sx, rt eye start of cataract, "gets fluid around heart" History of Any Multi-Drug Resistant Organisms: None Reported Past Surgical History: Bowel Resection, Cholecystectomy, Heart Catheterization, Hysterectomy, Joint Replacement Additional Past Surgical History / Comment(s): L knee replacement, colonscopy December 2015, total hysterectomy. 3 surgeries to lt knee Past Anesthesia/Blood Transfusion Reactions: No Reported Reaction Past Psychological History: Anxiety Smoking Status: Former smoker Past Alcohol Use History: None Reported Past Drug Use History: None Reported - Past Family History Father Family Medical History: Diabetes Mellitus, Hypertension Mother Family Medical History: Cancer, Congestive Heart Failure (CHF) Brother(s) Family Medical History: Chest Pain / Angina, Coronary Artery Disease (CAD) Sister(s) Family Medical History: CVA/TIA Son(s) Family Medical History: Coronary Artery Disease (CAD) Medications and Allergies Home Medications Medication Instructions Recorded Confirmed Type LORazepam [Ativan] 1 mg PO BID PRN 05/06/15 09/10/23 History lisinopriL [Zestril] 20 mg PO DAILY 03/25/23 09/10/23 History Buspar (Unknown Strength) 1 dose PO DIRECTED 09/10/23 09/10/23 History Nitro (Unknown Dose) 1 dose PO DAILY 09/10/23 09/10/23 History Potassium Chloride ER [K-Dur 20] 20 meq PO DAILY 09/10/23 09/10/23 History Allergies Allergy/AdvReac Type Severity Reaction Status Date / Time codeine Allergy Rash/Hives Verified 09/10/23 14:50 Penicillins Allergy Rash/Hives Verified 09/10/23 14:50 pneumococcal vaccine Allergy Unknown Verified 09/10/23 14:50 Tetanus Vaccines and Toxoid Allergy Unknown Verified 09/10/23 14:50 [Tetanus Vaccines & Toxoid] ketorolac [From Toradol] AdvReac Nausea & Verified 09/10/23 14:50 Vomiting Sulfa (Sulfonamide AdvReac Nausea & Verified 09/10/23 14:50 Antibiotics) Vomiting & Diarrhea Surgical - Exam Vital Signs Temp Pulse Resp BP Pulse Ox 97.8 F 66 16 130/87 100 09/10/23 14:48 09/10/23 14:48 09/10/23 14:48 09/10/23 14:48 09/10/23 14:48 Results - Labs 09/10/23 15:15 09/10/23 15:15 Abnormal Lab Results - Last 24 Hours (Table) 09/10/23 Range/Units 15:15 Potassium 2.9 L (3.5-5.1) mmol/L Total Protein 6.2 L (6.3-8.2) g/dL Diabetes panel 09/10/23 Range/Units 15:15 Sodium 138 (137-145) mmol/L Potassium 2.9 L (3.5-5.1) mmol/L Chloride 107 (98-107) mmol/L Carbon Dioxide 28 (22-30) mmol/L BUN 8 (7-17) mg/dL Creatinine 0.78 (0.52-1.04) mg/dL Glucose 96 (74-99) mg/dL Calcium 9.5 (8.4-10.2) mg/dL AST 20 (14-36) U/L ALT 15 (4-34) U/L Alkaline Phosphatase 73 (38-126) U/L Total Protein 6.2 L (6.3-8.2) g/dL Albumin 3.8 (3.5-5.0) g/dL Calcium panel 09/10/23 Range/Units 15:15 Calcium 9.5 (8.4-10.2) mg/dL Albumin 3.8 (3.5-5.0) g/dL Pituitary panel 09/10/23 Range/Units 15:15 Sodium 138 (137-145) mmol/L Potassium 2.9 L (3.5-5.1) mmol/L Chloride 107 (98-107) mmol/L Carbon Dioxide 28 (22-30) mmol/L BUN 8 (7-17) mg/dL Creatinine 0.78 (0.52-1.04) mg/dL Glucose 96 (74-99) mg/dL Calcium 9.5 (8.4-10.2) mg/dL Adrenal panel 09/10/23 Range/Units 15:15 Sodium 138 (137-145) mmol/L Potassium 2.9 L (3.5-5.1) mmol/L Chloride 107 (98-107) mmol/L Carbon Dioxide 28 (22-30) mmol/L BUN 8 (7-17) mg/dL Creatinine 0.78 (0.52-1.04) mg/dL Glucose 96 (74-99) mg/dL Calcium 9.5 (8.4-10.2) mg/dL Total Bilirubin 1.1 (0.2-1.3) mg/dL AST 20 (14-36) U/L ALT 15 (4-34) U/L Alkaline Phosphatase 73 (38-126) U/L Total Protein 6.2 L (6.3-8.2) g/dL Albumin 3.8 (3.5-5.0) g/dL
--- NOTE | 2023-09-11 11:19 | P.OP ---
Date of Procedure: 09/11/23 Preoperative Diagnosis: Dysphagia Postoperative Diagnosis: Antral gastritis Small hiatal hernia Mild esophagitis No evidence of mechanical obstruction Procedure(s) Performed: EGD Anesthesia: MAC Surgeon: Blaze Hernandes Pathology: other (Antrum, esophagus) Condition: stable Disposition: PACU Description of Procedure: The patient is placed on the endoscopy table in the lateral position. She received IV sedation. The gastro/oropharynx passed in the esophagus and stomach. The scope was placed through the pylorus. The first and second portion of the duodenum appeared normal. Scope was then brought back to the antrum this. Mildly inflamed. A biopsy was performed. The scope was then retroflexed and there was a small hiatal hernia seen. The GE junction was at 39 cm. The distal esophagus appeared inflamed and a biopsy performed. The proximal esophagus appeared normal. There is no sign of mechanical obstruction of the GE junction. The scope was withdrawn for the patient.
[2023-09-11 12:30] LABS: African American GFR (CKD) >90 (>60 ml/min/1.73 sqM); Anion Gap 3 mmol/L; Blood Urea Nitrogen 6 mg/dL (7-17); Calcium 8.8 mg/dL (8.4-10.2); Carbon Dioxide 25 mmol/L (22-30); Chloride 113 mmol/L (98-107); Glucose 77 mg/dL (74-99); Non-African American GFR(CKD) >90 (>60 ml/min/1.73 sqM); Potassium 3.4 mmol/L (3.5-5.1); Sodium 141 mmol/L (137-145)
[2023-09-11] MEDS: lisinopriL 20 MG TAB PO SCH (13:34)
--- NOTE | 2023-09-11 23:23 | P.HPIM ---
History of Present Illness H&P Date: 09/11/23 Chief Complaint: Difficulty swallowing Patient is a 73-year-old female with a past medical history of hypertension, history of CVA/TIA, osteoarthritis, coronary artery disease, anxiety and prior history of smoking presents to ER with complaints of difficulty swallowing for t he past 4 days. Patient is unable to swallow and felt like something stuck in the throat. Denies any epigastric pain or abdominal pain. Denies any recent illnesses. No nausea or vomiting. She is only able to tolerating small amounts of liquids. Otherwise denies any fever or chills. No pain. No focal weakness. No headache. No neck pain or recent injury. Chest x-ray showed soft tissue of the neck patent airway. No specific abnormality seen. Chest no acute cardiopulmonary process. Laboratory data showed sodium 138 potassium 2.9 chloride 107 bicarb is 28 BUN 18 creatinine 0.78 and blood sugar 96 and troponin x 1-11 Elevated. Patient underwent EGD today showed antral gastritis, small hiatal hernia, mild esophagitis and no evidence of mechanical obstruction. Review of Systems Constitutional: Patient denies any fever or chills . no Generalized weakness. Abdomen: Patient denied any nausea or vomiting or abd. pain Cardiovascular: Patient denies any chest pain or short of breath no palpitations. Respiratory: patient denied any cough . no sputum production. No shortness of breath Neurologic: Patient denied any numbness or tingling or headache. Difficulty swallowing. Musculoskeletal: Patient denies any complaints of joint swelling or deformity. Skin: Negative Psychiatric: Negative Endocrine: No heat or cold intolerance. No recent weight gain. Genitourinary: No dysuria or hematuria. All other 14 point ROS negative except the above Past Medical History Past Medical History: Coronary Artery Disease (CAD), Chest Pain / Angina, CVA/TIA, Hypertension, Osteoarthritis (OA) Additional Past Medical History / Comment(s): TIA, colitis, uterine fibroids-has sx, rt eye start of cataract, "gets fluid around heart" History of Any Multi-Drug Resistant Organisms: None Reported Past Surgical History: Bowel Resection, Cholecystectomy, Heart Catheterization, Hysterectomy, Joint Replacement Additional Past Surgical History / Comment(s): L knee replacement, colonscopy December 2015, total hysterectomy. 3 surgeries to lt knee Past Anesthesia/Blood Transfusion Reactions: No Reported Reaction Past Psychological History: Anxiety Smoking Status: Former smoker Past Alcohol Use History: None Reported Past Drug Use History: None Reported - Past Family History Father Family Medical History: Diabetes Mellitus, Hypertension Mother Family Medical History: Cancer, Congestive Heart Failure (CHF) Brother(s) Family Medical History: Chest Pain / Angina, Coronary Artery Disease (CAD) Sister(s) Family Medical History: CVA/TIA Son(s) Family Medical History: Coronary Artery Disease (CAD) Medications and Allergies Home Medications Medication Instructions Recorded Confirmed Type LORazepam [Ativan] 1 mg PO BID PRN 05/06/15 09/10/23 History lisinopriL [Zestril] 20 mg PO DAILY 03/25/23 09/10/23 History Buspar (Unknown Strength) 1 dose PO DIRECTED 09/10/23 09/10/23 History Nitro (Unknown Dose) 1 dose PO DAILY 09/10/23 09/10/23 History Potassium Chloride ER [K-Dur 20] 20 meq PO DAILY 09/10/23 09/10/23 History Allergies Allergy/AdvReac Type Severity Reaction Status Date / Time codeine Allergy Rash/Hives Verified 09/10/23 14:50 Penicillins Allergy Rash/Hives Verified 09/10/23 14:50 pneumococcal vaccine Allergy Unknown Verified 09/10/23 14:50 Tetanus Vaccines and Toxoid Allergy Unknown Verified 09/10/23 14:50 [Tetanus Vaccines & Toxoid] ketorolac [From Toradol] AdvReac Nausea & Verified 09/10/23 14:50 Vomiting Sulfa (Sulfonamide AdvReac Nausea & Verified 09/10/23 14:50 Antibiotics) Vomiting & Diarrhea Physical Exam Vitals: Vital Signs Temp Pulse Pulse Resp BP BP Pulse Ox 09/11/23 12:05 43 L 16 165/79 100 09/11/23 11:45 45 L 16 164/76 100 09/11/23 11:31 49 L 16 112/63 100 09/11/23 11:17 48 L 16 125/69 100 09/11/23 07:45 97.9 F 50 L 16 142/76 99 09/11/23 06:31 48 L 14 152/79 98 09/11/23 03:45 45 L 16 124/79 99 09/10/23 23:12 56 L 16 156/87 99 09/10/23 21:00 162/89 09/10/23 19:19 55 L 18 181/108 98 09/10/23 14:48 97.8 F 66 16 130/87 100 Intake and Output 09/10/23 09/11/23 09/11/23 22:59 06:59 14:59 Intake Total 200 Balance 200 Intake: IV 200 Other: Weight 53.977 kg PHYSICAL EXAMINATION: Patient is lying in the bed comfortably, no acute distress, awake alert and oriented.. HEENT: Normocephalic. Neck is supple. Pupils reactive. Nostrils clear. Oral cavity is moist. Neck reveals no JVD, carotid bruits, or thyromegaly. CHEST EXAMINATION: Trachea is central. Symmetrical expansion. Lung mosqueda clear to auscultation and percussion. CARDIAC: Normal S1, S2 with no gallops. No murmurs ABDOMEN: Soft. Bowel sounds present. Nontender. No organomegaly. No abdominal bruits. Extremities: reveal no edema. No clubbing or cyanosis Neurologically awake, alert, oriented x3 with well-coordinated movements. No focal deficits noted Skin: No rash or skin lesions. Psychiatric: Coperative. Nonsuicidal, Musculoskeletal: No joint swelling or deformity. Normal range of motion. Results CBC & Chem 7: 09/10/23 15:15 09/11/23 11:52 Labs: Abnormal Lab Results - Last 24 Hours (Table) 09/10/23 Range/Units 15:15 Potassium 2.9 L (3.5-5.1) mmol/L Total Protein 6.2 L (6.3-8.2) g/dL Thrombosis Risk Factor Assmnt - DVT/VTE Prophylaxis DVT/VTE Prophylaxis: Pharmacologic Prophylaxis ordered Assessment and Plan Assessment: Difficulty swallowing x 4 days Severe hypokalemia Sinus bradycardia Coronary artery disease History of CVA/TIA with no residual weakness Hypertension Osteoarthritis Colitis history and uterine fibroids GI and DVT prophylaxis. With PPI and heparin subcu Plan: Patient will be continued on IV hydration with normal saline at 75 cc/h. Replace potassium and repeat level. Continue with PPI and DVT prophylaxis. Patient was seen by general surgery and is status post EGD showed no mechanical obstruction. Esophagogram was ordered. Ordered patient does not have any focal weakness. Will continue to follow closely. Discussed with the family at bedside in detail. Continue with home medications.
[2023-09-12] MEDS: PANTOPRAZOLE 40 MG/10 ML VIAL IV SCH (08:28)
[2023-09-12] MEDS: lisinopriL 20 MG TAB PO SCH (08:28)
[2023-09-12] MEDS ORDERED: HEPARIN SODIUM,PORCINE 5,000 UNIT/ML 1 ML VIAL SQ SCH (09:00)
[2023-09-12] MEDS ORDERED: POTASSIUM CHLORIDE ER 20 MEQ TAB.ER PO SCH (09:00)
[2023-09-12] MEDS: LORazepam 1 MG TAB PO PRN (09:20)
[2023-09-12 09:35] VITALS: BP 132/82; PULSE 58; RESP 16; TEMP 97.3
[2023-09-12 11:20] VITALS: BMI 18.6
--- NOTE | 2023-09-12 11:33 | P.PN ---
Subjective Progress Note Date: 09/12/23 CHIEF COMPLAINT: Dysphagia HISTORY OF PRESENT ILLNESS: Patient status post EGD revealing antral gastritis, small hiatal hernia, mild esophagitis. No evidence of mechanical obstruction. Patient is tolerating full liquids. Does not feel that anything is sticking. Denies any nausea or vomiting. Afebrile. PHYSICAL EXAM: VITAL SIGNS: Reviewed. GENERAL: Well-developed in no acute distress. HEENT: No sclera icterus. Extraocular movements grossly intact. Moist buccal mucosa. Head is atraumatic, normocephalic. ABDOMEN: Soft. Nondistended. Nontender. NEUROLOGIC: Alert and oriented. Cranial nerves II through XII grossly intact. ASSESSMENT: 1. Dysphagia status post EGD revealing antral gastritis, small hiatal hernia and mild esophagitis PLAN: -Patient can be discharged from surgical standpoint -Recommend outpatient follow-up in 1 week -Esophagram can be completed outpatient -Continue PPI for gastritis and esophagitis Physician Retail Team Leader note has been reviewed by physician. Signing provider agrees with the documented findings, assessment, and plan of care. Objective - Vital Signs Vital signs: Vital Signs Temp 97.3 F L 09/12/23 07:00 Pulse 58 L 09/12/23 07:00 Resp 16 09/12/23 07:00 BP 132/82 09/12/23 07:00 Pulse Ox 100 09/12/23 07:00 FiO2 Intake & Output 09/11/23 09/12/23 09/12/23 18:59 06:59 18:59 Intake Total 200 Balance 200 Weight 53.977 kg 53.977 kg Intake: IV 200 Other: Voiding Method Toilet # Voids 2 2 - Labs CBC & Chem 7: 09/10/23 15:15 09/11/23 11:52 Labs: Abnormal Lab Results - Last 24 Hours (Table) 09/11/23 Range/Units 11:52 Potassium 3.4 L (3.5-5.1) mmol/L Chloride 113 H (98-107) mmol/L BUN 6 L (7-17) mg/dL
[2023-09-12 11:37] LABS: BUN/Creat Ratio 5.43 Ratio (12.00-20.00); Blood Urea Nitrogen 3.8 mg/dL (9.0-27.0); Calcium 9.3 mg/dL (8.7-10.3); Carbon Dioxide 23.9 mmol/L (21.6-31.8); Chloride 111 mmol/L (96-109); Glucose 82 mg/dL (70-110); Potassium 3.7 mmol/L (3.5-5.5); Sodium 144 mmol/L (135-145)
== END 2023-09-12 12:31 | disposition home or self-care (01) | DRG 392 ==
LOC: EC 14:37 → 6NMEDSUR 18:35 → OBSVTOIN 09-12 07:40
PROVIDERS: ADMIT Internal Medicine; ATTEND Internal Medicine
PROC: 0DB48ZX Excision of Esophagogastric Junction, Via Natural or Artificial Opening Endoscopic, Diagnostic (ICD-10-PCS; principal; 2023-09-11 08:20)
PROC: 0DB78ZX Excision of Stomach, Pylorus, Via Natural or Artificial Opening Endoscopic, Diagnostic (ICD-10-PCS; principal; 2023-09-11 08:20)
DX: K29.70 Gastritis, unspecified, without bleeding (principal); E87.6 Hypokalemia; R00.1 Bradycardia, unspecified; I10 Essential (primary) hypertension; K20.90 Esophagitis, unspecified without bleeding; K44.9 Diaphragmatic hernia without obstruction or gangrene; Z28.310 Unvaccinated for COVID-19; I25.10 Atherosclerotic heart disease of native coronary artery without angina pectoris; F41.9 Anxiety disorder, unspecified; M19.90 Unspecified osteoarthritis, unspecified site; H26.9 Unspecified cataract; Z79.899 Other long term (current) drug therapy; Z86.73 Personal history of transient ischemic attack (TIA), and cerebral infarction without residual deficits; Z87.891 Personal history of nicotine dependence; Z96.652 Presence of left artificial knee joint; Z88.5 Allergy status to narcotic agent; Z88.0 Allergy status to penicillin; Z88.2 Allergy status to sulfonamides; Z88.7 Allergy status to serum and vaccine
CPT/HCPCS: 36415; 43239; 70360; 71046; 80048; 80053; 83735; 84443; 84484; 85025; 85610; 85730; 88305; 93005; 94760; 96361; 96374; 96375; 96376; 99285

== ENCOUNTER → 2023-09-15 | Outpatient (CLI) | payer MEDICARE, OTHER ==
--- NOTE | 2023-09-15 09:38 | FL ---
EXAMINATION TYPE: FL UGI w esophagus DATE OF EXAM: 09/15/2023 8:55 AM COMPARISON: NONE CLINICAL HISTORY: Difficulty in swallowing. A total of 83 seconds of fluoroscopic time was utilized during procedure and 35 images obtained. Preliminary view of the abdomen reveals a normal bowel gas pattern. Upper GI examination was performed according to the air contrast technique. Barium and effervescent crystal was swallowed without difficulty or delay. Esophageal peristalsis and motility are within no rmal limits. There is no evidence for esophagitis, intraluminal mass, hiatal hernia or gastroesophag eal reflux. The stomach has a normal appearance in terms of its size, shape and location. No gastri c filling defects or ulcer craters are seen. The duodenal bulb and sweep are also free of intralumin al lesion or ulcer crater. And single contrast cervical esophagram was also performed following the ingestion of thin liquid bar ium. There is no evidence for aspiration or penetration. No masses are seen. No filling defects ar e evident. IMPRESSION: Unremarkable evaluation.
== END | disposition home or self-care (01) ==
LOC: RADUSWWP 08:04
PROVIDERS: ATTEND Surgery
DX: R13.10 Dysphagia, unspecified (principal)
CPT/HCPCS: 74240

== ENCOUNTER 2023-10-06 09:49 | Emergency (ER) | payer MEDICARE, OTHER ==
[2023-10-06 10:14] VITALS: RESP 18; TEMP 98.1
--- NOTE | 2023-10-06 10:32 | ED ---
Dizziness HPI - General Chief Complaint: Syncope Stated Complaint: Dizziness Time Seen by Provider: 10/06/23 09:59 Source: patient, RN notes reviewed Mode of arrival: ambulatory Limitations: no limitations - History of Present Illness Initial Comments: This is a 73-year-old female who presents to the emergency department for dizziness. States that this started yesterday and she feels like she is going to pass out. States that she feels worse when she tries to get up or move around, but continues to feel generally ill constantly. She does report ongoing nausea. This has happened to her before, and states that she is unsure why. Denies any chest pain or shortness of breath. MD Complaint: dizziness, lightheadedness, near syncope - Related Data Home Medications Medication Instructions Recorded Confirmed LORazepam [Ativan] 1 mg PO BID PRN 05/06/15 10/06/23 lisinopriL [Zestril] 20 mg PO DAILY 03/25/23 10/06/23 Potassium Chloride ER [K-Dur 20] 20 meq PO DAILY 09/10/23 10/06/23 Aspirin EC [Ecotrin Low Dose] 81 mg PO DAILY 10/06/23 10/06/23 Previous Rx's Medication Instructions Recorded Pantoprazole [Protonix] 40 mg PO DAILY #30 tab 09/12/23 Allergies Allergy/AdvReac Type Severity Reaction Status Date / Time codeine Allergy Rash/Hives Verified 10/06/23 12:22 Penicillins Allergy Rash/Hives Verified 10/06/23 12:22 pneumococcal vaccine Allergy Unknown Verified 10/06/23 12:22 Tetanus Vaccines and Toxoid Allergy Unknown Verified 10/06/23 12:22 [Tetanus Vaccines & Toxoid] ketorolac [From Toradol] AdvReac Nausea & Verified 10/06/23 12:22 Vomiting Sulfa (Sulfonamide AdvReac Nausea & Verified 10/06/23 12:22 Antibiotics) Vomiting & Diarrhea Review of Systems ROS Statement: Those systems with pertinent positive or pertinent negative responses have been documented in the HPI. ROS Other: All systems not noted in ROS Statement are negative. Past Medical History Past Medical History: Coronary Artery Disease (CAD), Chest Pain / Angina, CVA/TIA, Hypertension, Osteoarthritis (OA) Additional Past Medical History / Comment(s): TIA, colitis, uterine fibroids-has sx, rt eye start of cataract, "gets fluid around heart" History of Any Multi-Drug Resistant Organisms: None Reported Past Surgical History: Bowel Resection, Cholecystectomy, Heart Catheterization, Hysterectomy, Joint Replacement Additional Past Surgical History / Comment(s): L knee replacement, colonscopy December 2015, total hysterectomy. 3 surgeries to lt knee Past Anesthesia/Blood Transfusion Reactions: No Reported Reaction Past Psychological History: Anxiety Smoking Status: Former smoker Past Alcohol Use History: None Reported Past Drug Use History: None Reported - Past Family History Father Family Medical History: Diabetes Mellitus, Hypertension Mother Family Medical History: Cancer, Congestive Heart Failure (CHF) Brother(s) Family Medical History: Chest Pain / Angina, Coronary Artery Disease (CAD) Sister(s) Family Medical History: CVA/TIA Son(s) Family Medical History: Coronary Artery Disease (CAD) General Exam Limitations: no limitations General appearance: alert, in no apparent distress Head exam: Present: atraumatic, normocephalic, normal inspection Eye exam: Present: normal appearance, PERRL, EOMI. Absent: scleral icterus, conjunctival injection, periorbital swelling Respiratory exam: Present: normal lung sounds bilaterally. Absent: respiratory distress, wheezes, rales, rhonchi, stridor Cardiovascular Exam: Present: regular rate, normal rhythm, normal heart sounds. Absent: systolic murmur, diastolic murmur, rubs, gallop, clicks Neurological exam: Present: alert, oriented X3, CN II-XII intact Expanded Cerebellar function: Finger to Nose: Normal Motor strength exam: RUE: 5, LUE: 5, RLE: 5, LLE: 5 Psychiatric exam: Present: normal affect, normal mood Skin exam: Present: warm, dry, intact, normal color. Absent: rash Course Vital Signs 10/06/23 10/06/23 10/06/23 09:51 12:17 12:18 Temperature 98.1 F Pulse Rate 73 52 L Pulse Rate [ 52 L Greeting Card Writer ] Respiratory 18 18 18 Rate Blood Pressure 158/92 172/85 Blood Pressure [Right Arm Sitting] Blood Pressure [Right Arm Standing] Blood Pressure 162/88 [Right Arm Supine] O2 Sat by Pulse 93 L 96 Oximetry 10/06/23 10/06/23 10/06/23 12:21 12:25 13:30 Temperature Pulse Rate 73 Pulse Rate [ 62 70 Greeting Card Writer ] Respiratory 18 18 18 Rate Blood Pressure 141/88 Blood Pressure 144/93 [Right Arm Sitting] Blood Pressure 124/84 [Right Arm Standing] Blood Pressure [Right Arm Supine] O2 Sat by Pulse 96 Oximetry Medical Decision Making - Medical Decision Making This is a 73-year-old female who presents to the emergency department for dizziness. Was pt. sent in by a medical professional or institution? @ -No Did you speak to anyone other than the patient for history? @ -No Did you review nursing and triage notes? @ -Yes, and I agree, it is accurate with regards to the patient's symptoms. Were old charts reviewed? @ -No Differential Diagnosis? @ -Differential Dizziness: Benign paroxysmal positional Vertigo, Menieres disease, otitis media, acoustic neuroma, vertebrobasilar insufficiency, cerebellar stroke, encephalitis, hypovolemic, arrhythmia, coronary artery syndrome, anemia, this is not meant to be an all-inclusive list EKG interpreted by me (3pts min.)? @ -EKG interpreted by me demonstrating the following: Sinus bradycardia. Ventricular rate 55 beats per minute, ID interval 168 ms, QRS duration 108 ms, QTC 417 ms. X-rays interpreted by me (1pt min.)? @ -Chest x-ray obtained, my interpretation identifies no localized consolidations or infiltrates. CT interpreted by me (1pt min.)? @ -Not obtained U/S interpreted by me (1pt. min.)? @ -Not obtained What testing was considered but not performed? (CT, X-rays, U/S, labs)? Why? @ -None What meds were considered but not given? Why? @ -None Did you discuss the management of the patient with other professionals? @ -No Did you reconcile home meds? @ -No Was smoking cessation discussed for >3mins.? @ -No Was critical care preformed (if so, how long)? @ -No Were there social determinants of health that impacted care today? How? (Homelessness, low income, unemployed, alcoholism, drug addiction, transportation, low edu. Level, literacy, decrease access to med. care, senior living, rehab)? @ -No Was there de-escalation of care discussed even if they declined? (Discuss DNR or withdrawal of care, Hospice)? @ -No What co-morbidities impacted this encounter? (DM, HTN, Smoking, COPD, CAD, Cancer, CVA, Hep., AIDS, mental health diagnosis, sleep apnea, morbid obesity)? @ -CAD, HTN Was patient admitted / discharged? @ -Discharged. Lab work obtained revealing mild hypokalema with a potassium of 3.3, and was otherwise unremarkable. COVID, influenza, and RSV testing were negative. Urinalysis negative for signs of infection. Chest x-ray reveals no acute process. Hypokalemia replaced with 40 mEq of K-lyte (patient could not take K-dur due to pill size). She was also treated with IV fluids, Zofran, and Meclizine. She did have symptomatic improvement following treatment with medication and IV fluids. Orthostatics positive with regards to BP. Orthostatics are as follows: Supine - 162/88, 52 BPM, Sitting - 144/93, 62 BPM, Standing 124/84, 70 BPM. Discussed with the patient that given the positive orthostatics and her age, she is a fall risk. Patient refused admission at this time. States that she lives with family and has to take care of her disabled cousin, and feels well enough for discharge at this time. She has Zofran and meclizine at home she can continue to use as needed. She is advised to drink plenty of fluids and move around/change positions slowly. She was also given very strict return parameters and advised to follow up with her PCP. Undiagnosed new problem with uncertain prognosis? @ -None Drug Therapy requiring intensive monitoring for toxicity (Heparin, Nitro, Insulin, Cardizem)? @ -None Were any procedures done? @ -None Diagnosis/symptom? @ -Dizziness, orthostatic hypotension Acute, or Chronic, or Acute on Chronic? @ -Acute Uncomplicated (without systemic symptoms) or Complicated (systemic symptoms)? @ -Uncomplicated Side effects of treatment? @ -None Exacerbation, Progression, or Severe Exacerbation] @ -Not applicable Poses a threat to life or bodily function? @ -This increases her risk for falls and subsequent injury Return precautions reviewed in depth, the patient is instructed to return to the emergency department with any new, worsening, or concerning symptoms. Patient verbalized understanding. This case was discussed in detail with the attending ED physician, Dr. Sharpe. Presentation, findings, and treatment plan discussed in detail as well. - Lab Data Result diagrams: 10/06/23 10:44 10/06/23 10:44 Lab Results 10/06/23 10/06/23 10/06/23 Range/Units 10:44 10:44 10:44 WBC 5.7 (3.8-10.6) k/uL RBC 4.69 (3.80-5.40) m/uL Hgb 14.4 (11.4-16.0) gm/dL Hct 42.6 (34.0-46.0) % MCV 90.8 (80.0-100.0) fL MCH 30.8 (25.0-35.0) pg MCHC 33.9 (31.0-37.0) g/dL RDW 13.0 (11.5-15.5) % Plt Count 208 (150-450) k/uL MPV 7.3 Neutrophils % 68 % Lymphocytes % 25 % Monocytes % 5 % Eosinophils % 1 % Basophils % 1 % Neutrophils # 3.9 (1.3-7.7) k/uL Lymphocytes # 1.4 (1.0-4.8) k/uL Monocytes # 0.3 (0-1.0) k/uL Eosinophils # 0.1 (0-0.7) k/uL Basophils # 0.0 (0-0.2) k/uL PT 11.1 (10.0-12.5) sec INR 1.0 (<1.2) APTT 25.7 (22.0-30.0) sec Sodium (137-145) mmol/L Potassium (3.5-5.1) mmol/L Chloride (98-107) mmol/L Carbon Dioxide (22-30) mmol/L Anion Gap mmol/L BUN (7-17) mg/dL Creatinine (0.52-1.04) mg/dL Est GFR (CKD-EPI)AfAm (>60 ml/min/1.73 sqM) Est GFR (CKD-EPI)NonAf (>60 ml/min/1.73 sqM) Glucose (74-99) mg/dL Calcium (8.4-10.2) mg/dL Magnesium (1.6-2.3) mg/dL Total Bilirubin (0.2-1.3) mg/dL AST (14-36) U/L ALT (4-34) U/L Alkaline Phosphatase (38-126) U/L Troponin I (0.000-0.034) ng/mL Total Protein (6.3-8.2) g/dL Albumin (3.5-5.0) g/dL Urine Color Colorless Urine Appearance Clear (Clear) Urine pH 7.0 (5.0-8.0) Ur Specific Noble 1.000 L (1.001-1.035) Urine Protein Negative (Negative) Urine Glucose (UA) Negative (Negative) Urine Ketones Negative (Negative) Urine Blood Negative (Negative) Urine Nitrite Negative (Negative) Urine Bilirubin Negative (Negative) Urine Urobilinogen <2.0 (<2.0) mg/dL Ur Leukocyte Esterase Moderate H (Negative) Urine RBC 1 (0-5) /hpf Urine WBC 6 H (0-5) /hpf Ur Squamous Epith Cells 1 (0-4) /hpf Influenza Type A (PCR) (Not Detectd) Influenza Type B (PCR) (Not Detectd) RSV (PCR) (Not Detectd) SARS-CoV-2 (PCR) (Not Detectd) 10/06/23 10/06/23 10/06/23 Range/Units 10:44 10:44 10:44 WBC (3.8-10.6) k/uL RBC (3.80-5.40) m/uL Hgb (11.4-16.0) gm/dL Hct (34.0-46.0) % MCV (80.0-100.0) fL MCH (25.0-35.0) pg MCHC (31.0-37.0) g/dL RDW (11.5-15.5) % Plt Count (150-450) k/uL MPV Neutrophils % % Lymphocytes % % Monocytes % % Eosinophils % % Basophils % % Neutrophils # (1.3-7.7) k/uL Lymphocytes # (1.0-4.8) k/uL Monocytes # (0-1.0) k/uL Eosinophils # (0-0.7) k/uL Basophils # (0-0.2) k/uL PT (10.0-12.5) sec INR (<1.2) APTT (22.0-30.0) sec Sodium 140 (137-145) mmol/L Potassium 3.3 L (3.5-5.1) mmol/L Chloride 105 (98-107) mmol/L Carbon Dioxide 27 (22-30) mmol/L Anion Gap 8 mmol/L BUN 7 (7-17) mg/dL Creatinine 0.62 (0.52-1.04) mg/dL Est GFR (CKD-EPI)AfAm >90 (>60 ml/min/1.73 sqM) Est GFR (CKD-EPI)NonAf >90 (>60 ml/min/1.73 sqM) Glucose 97 (74-99) mg/dL Calcium 10.2 (8.4-10.2) mg/dL Magnesium 2.2 (1.6-2.3) mg/dL Total Bilirubin 1.2 (0.2-1.3) mg/dL AST 18 (14-36) U/L ALT 15 (4-34) U/L Alkaline Phosphatase 74 (38-126) U/L Troponin I <0.012 (0.000-0.034) ng/mL Total Protein 6.3 (6.3-8.2) g/dL Albumin 4.0 (3.5-5.0) g/dL Urine Color Urine Appearance (Clear) Urine pH (5.0-8.0) Ur Specific Noble (1.001-1.035) Urine Protein (Negative) Urine Glucose (UA) (Negative) Urine Ketones (Negative) Urine Blood (Negative) Urine Nitrite (Negative) Urine Bilirubin (Negative) Urine Urobilinogen (<2.0) mg/dL Ur Leukocyte Esterase (Negative) Urine RBC (0-5) /hpf Urine WBC (0-5) /hpf Ur Squamous Epith Cells (0-4) /hpf Influenza Type A (PCR) Not Detected (Not Detectd) Influenza Type B (PCR) Not Detected (Not Detectd) RSV (PCR) Not Detected (Not Detectd) SARS-CoV-2 (PCR) Not Detected (Not Detectd) - Radiology Data Radiology results: report reviewed, image reviewed Disposition Clinical Impression: Dizziness, Orthostatic hypotension Disposition: HOME SELF-CARE Instructions (If sedation given, give patient instructions): Hypotension (ED), Near Syncope (ED), Dizziness (ED) Additional Instructions: Return to the emergency department with any new, worsening, or concerning symptoms. You can take the Zofran up to every 8 hours as needed for nausea and vomiting. Make sure you move around slowly and drink plenty of fluids. Follow up with your primary care provider in 1-2 days. Is patient prescribed a controlled substance at d/c from ED?: No Referrals: Pantera Fuentes DO [Primary Care Provider] - 1-2 days Time of Disposition: 12:50
[2023-10-06] MEDS: SODIUM CHLORIDE 0.9% 1,000 ML IV STA (10:33)
[2023-10-06] MEDS: ONDANSETRON 4 MG/2 ML VIAL IVP STA (10:35)
[2023-10-06] MEDS: SCOPOLAMINE 1 MG/72 HR PATCH TRANSDERM STA (10:39)
[2023-10-06] MEDS: MECLIZINE 12.5 MG TAB PO STA (10:40)
[2023-10-06 10:52] LABS: Basophils % (A) 1 %; Eosinophils # (A) 0.1 k/uL (0-0.7); Eosinophils % (A) 1 %; HCT 42.6 % (34.0-46.0); HGB 14.4 gm/dL (11.4-16.0); Lymphocytes # (A) 1.4 k/uL (1.0-4.8); Lymphocytes % (A) 25 %; MCH 30.8 pg (25.0-35.0); MCHC 33.9 g/dL (31.0-37.0); MCV 90.8 fL (80.0-100.0); Mean Platelet Volume 7.3; Monocytes # (A) 0.3 k/uL (0-1.0); Monocytes % (A) 5 %; Neutrophils # (A) 3.9 k/uL (1.3-7.7); Neutrophils % (A) 68 %; Platelet Count 208 k/uL (150-450); RBC 4.69 m/uL (3.80-5.40); WBC 5.7 k/uL (3.8-10.6)
[2023-10-06 11:00] LABS: Partial Thromboplastin Time 25.7 sec (22.0-30.0); Prothrombin Time 11.1 sec (10.0-12.5)
[2023-10-06 11:04] LABS: ALT 15 U/L (4-34); AST 18 U/L (14-36); African American GFR (CKD) >90 (>60 ml/min/1.73 sqM); Alkaline Phosphatase 74 U/L (38-126); Anion Gap 8 mmol/L; Appearance,Urine Clear (Clear); Bilirubin,Urine Negative (Negative); Blood Urea Nitrogen 7 mg/dL (7-17); Blood,Urine Negative (Negative); Calcium 10.2 mg/dL (8.4-10.2); Carbon Dioxide 27 mmol/L (22-30); Chloride 105 mmol/L (98-107); Color,Urine Colorless; Glucose 97 mg/dL (74-99); Glucose,Urine (UA) Negative (Negative); Ketones,Urine Negative (Negative); Leukocyte Esterase,Urine Moderate (Negative); Magnesium 2.2 mg/dL (1.6-2.3); Nitrite,Urine Negative (Negative); Non-African American GFR(CKD) >90 (>60 ml/min/1.73 sqM); Potassium 3.3 mmol/L (3.5-5.1); Protein,Urine Negative (Negative); RBC,Urine 1 /hpf (0-5); Sodium 140 mmol/L (137-145); Squamous Epithelial Cell,Urine 1 /hpf (0-4); Total Bilirubin 1.2 mg/dL (0.2-1.3); Total Protein 6.3 g/dL (6.3-8.2); Urobilinogen,Urine <2.0 mg/dL (<2.0); WBC,Urine 6 /hpf (0-5)
[2023-10-06] MEDS: POTASSIUM CHLORIDE ER 20 MEQ TAB.ER PO STA (11:54)
[2023-10-06] MEDS: POTASSIUM CITRATE 5 MEQ TABLET.ER PO STA (11:56)
[2023-10-06] MEDS: POTASSIUM BICARBONATE/CIT AC 20 MEQ TABLET.EFF PO ONE (12:17)
--- NOTE | 2023-10-06 12:32 | XR ---
EXAMINATION TYPE: XR chest 2V DATE OF EXAM: 10/06/2023 COMPARISON: 09/10/2023 HISTORY: Weakness TECHNIQUE: Frontal and lateral views of the chest are obtained. FINDINGS: There is no focal air space opacity, pleural effusion, or pneumothorax seen. The cardiac silhouette size is within normal limits. The osseous structures are intact. IMPRESSION: No acute cardiopulmonary process.
[2023-10-06 13:45] VITALS: BP 141/88; PULSE 73
== END 2023-10-06 13:35 | disposition home or self-care (01) ==
LOC: EC 09:49
DX: I95.1 Orthostatic hypotension (principal); E87.6 Hypokalemia; R00.1 Bradycardia, unspecified; I25.10 Atherosclerotic heart disease of native coronary artery without angina pectoris; I10 Essential (primary) hypertension; F41.9 Anxiety disorder, unspecified; Z20.822 Contact with and (suspected) exposure to COVID-19; Z79.82 Long term (current) use of aspirin; Z79.899 Other long term (current) drug therapy; Z88.0 Allergy status to penicillin; Z88.2 Allergy status to sulfonamides; Z88.5 Allergy status to narcotic agent; Z88.6 Allergy status to analgesic agent; Z88.7 Allergy status to serum and vaccine; Z90.49 Acquired absence of other specified parts of digestive tract; Z86.73 Personal history of transient ischemic attack (TIA), and cerebral infarction without residual deficits; Z87.891 Personal history of nicotine dependence
CPT/HCPCS: 36415; 93005; 80053; 83735; 84484; 85025; 85610; 85730; 81001; 87636; 71046; 99284; 96374; 96361 ×2; J2405

== ENCOUNTER 2025-03-14 12:49 | Emergency (ER) | payer MEDICARE, OTHER ==
[2025-03-14 13:54] LABS: Basophils # (A) 0.06 10*3/uL (0.00-0.10); Basophils % (A) 0.7 %; Eosinophils # (A) 0.19 10*3/uL (0.04-0.35); Eosinophils % (A) 2.1 %; HCT 42.0 % (37.2-46.3); HGB 14.8 g/dL (12.0-15.0); Lymphocytes # (A) 2.02 10*3/uL (0.90-5.00); Lymphocytes % (A) 22.5 %; MCH 31.3 pg (27.0-32.0); MCHC 35.2 g/dL (32.0-37.0); MCV 88.8 fL (80.0-97.0); Monocytes # (A) 0.54 10*3/uL (0.20-1.00); Monocytes % (A) 6.0 %; Neutrophils # (A) 6.14 10*3/uL (1.80-7.70); Neutrophils % (A) 68.4 %; Platelet Count 264 10*3/uL (140-440); RBC 4.73 10*6/uL (4.10-5.20); RDW 13.2 % (11.5-14.5); WBC 8.98 10*3/uL (4.50-10.00)
[2025-03-14 13:57] LABS: Bilirubin,Urine Negative (Negative); Blood,Urine Negative (Negative); Color,Urine Colorless; Glucose,Urine (UA) Negative (Negative); Ketones,Urine Negative (Negative); Leukocyte Esterase,Urine Moderate (Negative); Mucus,Urine Rare /hpf; Nitrite,Urine Negative (Negative); PH, Urine 5.0 (5.0-8.0); Protein,Urine Negative (Negative); RBC,Urine 1 /hpf (0-5); Specific Gravity,Urine 1.007 (1.001-1.035); Squamous Epithelial Cell,Urine 2 /hpf (0-4); Urobilinogen,Urine <2.0 mg/dL (<2.0); WBC,Urine 7 /hpf (0-5)
--- NOTE | 2025-03-14 14:07 | ED ---
General Adult HPI - General Chief complaint: Psychiatric Symptoms Stated complaint: AMS/Mental health Time Seen by Provider: 03/14/25 13:05 Source: patient, RN notes reviewed, old records reviewed Mode of arrival: ambulatory Limitations: no limitations - History of Present Illness Initial comments: Patient is a 74-year-old female who presents emergency department after being brought in by her son for psychiatric evaluation. Patient beginning this morning stated she was having homicidal ideations of obtaining a knife and be heading her cousin to kill them. Did not act on this but presents for further evaluation. Does have a history of psychiatric illness. History of depression. No new medications. Has been seeing her counselor every 2 weeks as scheduled. States she has been feeling more depressed lately. Denies any suicidal or homicidal ideations, times complaints. Denies any hallucinations. Presents for further evaluation at this time. - Related Data Home Medications Medication Instructions Recorded Confirmed lisinopriL [Zestril] 20 mg PO DAILY 03/25/23 03/14/25 Acetaminophen [Acetaminophen 8 hr] 650 mg PO Q8H PRN 03/14/25 03/14/25 DULoxetine HCL [Cymbalta] 30 mg PO DAILY 03/14/25 03/14/25 LORazepam [Ativan] 0.5 mg PO HS PRN 03/14/25 03/14/25 Melatonin 3 mg PO HS 03/14/25 03/14/25 Mirtazapine [Remeron] 15 mg PO HS 03/14/25 03/14/25 OLANZapine [ZyPREXA] 7.5 mg PO HS 03/14/25 03/14/25 Omeprazole 20 mg PO DAILY 03/14/25 03/14/25 hydrOXYzine pamoate [Vistaril] 25 mg PO BID@0900,1700 03/14/25 03/14/25 Allergies Allergy/AdvReac Type Severity Reaction Status Date / Time codeine Allergy Rash/Hives Verified 03/14/25 14:17 Penicillins Allergy Rash/Hives Verified 03/14/25 14:17 pneumococcal vaccine Allergy Unknown Verified 03/14/25 14:17 Tetanus Vaccines and Toxoid Allergy Unknown Verified 03/14/25 14:17 [Tetanus Vaccines & Toxoid] ketorolac [From Toradol] AdvReac Nausea & Verified 03/14/25 14:17 Vomiting Sulfa (Sulfonamide AdvReac Nausea & Verified 03/14/25 14:17 Antibiotics) Vomiting & Diarrhea Review of Systems ROS Statement: Those systems with pertinent positive or pertinent negative responses have been documented in the HPI. Review of Systems: CONST: Denies fever EYES: Denies blurry vision ENT: Denies nasal congestion C/V: Denies Chest pain RESP: Denies shortness of breath GI: Denies abdominal pain : Denies dysuria SKIN: Denies rash. MSK: Denies joint pain. NEURO: Denies headache ROS Other: All systems not noted in ROS Statement are negative. Past Medical History Past Medical History: Coronary Artery Disease (CAD), Chest Pain / Angina, CVA/TIA, Hypertension, Osteoarthritis (OA) Additional Past Medical History / Comment(s): TIA, colitis, uterine fibroids-has sx, rt eye start of cataract, "gets fluid around heart" History of Any Multi-Drug Resistant Organisms: None Reported Past Surgical History: Bowel Resection, Cholecystectomy, Heart Catheterization, Hysterectomy, Joint Replacement Additional Past Surgical History / Comment(s): L knee replacement, colonscopy December 2015, total hysterectomy. 3 surgeries to lt knee Past Anesthesia/Blood Transfusion Reactions: No Reported Reaction Past Psychological History: Anxiety Smoking Status: Former smoker Past Alcohol Use History: None Reported Past Drug Use History: None Reported - Past Family History Father Family Medical History: Diabetes Mellitus, Hypertension Mother Family Medical History: Cancer, Congestive Heart Failure (CHF) Brother(s) Family Medical History: Chest Pain / Angina, Coronary Artery Disease (CAD) Sister(s) Family Medical History: CVA/TIA Son(s) Family Medical History: Coronary Artery Disease (CAD) General Exam - General Exam Comments Initial Comments: General: Appears in no acute distress. HEAD: Normal with no signs of head trauma. EYES: PERRLA, EOMI, conjunctiva normal, no discharge. ENT: Hearing grossly intact, normal oropharynx. RESPIRATORY: Clear breath sounds bilaterally. No wheezes, rales, or rhonchi. C/V: Regular rate and rhythm. S1 and S2 auscultated, no edema, peripheral pulses 2+ and intact throughout ABD: Abd is soft, nontender, nondistended EXT: Normal range of motion, no obvious deformity SKIN: No rashes or lesions observed on exposed skin. NEURO: Alert and oriented x 4. Cranial nerves II-XII intact. No focal sensory or strength deficits. Limitations: no limitations Course Vital Signs 03/14/25 12:56 Temperature 97.9 F Pulse Rate 84 Respiratory 20 Rate Blood Pressure 111/75 O2 Sat by Pulse 97 Oximetry Medical Decision Making - Medical Decision Making Was pt. sent in by a medical professional or institution (, SYL[facility]STER, THERAPEUTIC RADIOLOGIST, urgent care, hospital, or retirement...) When possible be specific @ -No Did you speak to anyone other than the patient for history (EMS, parent, family, police, friend...)? What history was obtained from this source @ -No Did you review nursing and triage notes (agree or disagree)? Why? @ -I reviewed and agree with nursing and triage notes Were old charts reviewed (outside hosp., previous admission, EMS record, old EKG, old radiological studies, urgent care reports/EKG's, retirement records)? Report findings @ -Compared today's EKG with EKG from March 2023 with no significant acute change. Differential Diagnosis (chest pain, altered mental status, abdominal pain women, abdominal pain men, vaginal bleeding, weakness, fever, dyspnea, syncope, headache, dizziness, GI bleed, back pain, seizure, CVA, palpatations, mental he alth, musculoskeletal)? @ -Differential Mental Health Depression, anxiety, bipolar, psychosis, schizophrenia, borderline personality, situational depression, adjustment disorder, behavioral disorder, brain tumor, malingering, substance abuse, encephalopathy, medication reaction, dementia, hypothyroidism, degenerative neurologic disorder, lupus.... This is not meant to be all-inclusive list EKG interpreted by me (3pts min.). @ -As above X-rays interpreted by me (1pt min.). @ -None done CT interpreted by me (1pt min.). @ -None done U/S interpreted by me (1pt. min.). @ -None done What testing was considered but not performed or refused? (CT, X-rays, U/S, labs)? Why? @ -None What meds were considered but not given or refused? Why? @ -None Did you discuss the management of the patient with other professionals (professionals i.e. SYLVESTER Chavarria, THERAPEUTIC RADIOLOGIST, lab, RT, psych nurse, psychiatric social worker supervisor, instructor apparel manufacture, teacher, railroad police officer, binder caser)? Give summary @ -EPS notified of the consult. Was smoking cessation discussed for >3mins.? @ -No Was critical care preformed (if so, how long)? @ -No Were there social determinants of health that impacted care today? How? (Homelessness, low income, unemployed, alcoholism, drug addiction, transportation, low edu. Level, literacy, decrease access to med. care, residential, rehab)? @ -No Was there de-escalation of care discussed even if they declined (Discuss DNR or withdrawal of care, Hospice)? DNR status @ -No What co-morbidities impacted this encounter? (DM, HTN, Smoking, COPD, CAD, Cancer, CVA, ARF, Chemo, Hep., AIDS, mental health diagnosis, sleep apnea, morbid obesity)? @ -None Was patient admitted / discharged? Hospital course, mention meds given and route, prescriptions, significant lab abnormalities, going to OR and other pertinent info. @ -Patient presents for psychiatric evaluation for homicidal ideations. Sitter ordered. BAT is 0. Basic labs obtained and are within acceptable limits. Screening EKG also shows no signs of acute ischemia. Vitals are within acceptable limits. At this time, patient is medically cleared for evaluation by psychiatry. Disposition pending psychiatric evaluation. EPS notified of the consult. LIZZETH Thompson evaluated the patient and after discussion EPS determined that patient will be admitted to geriatric psychiatry. Patient pending placement. Clinical certificate completed by myself. Undiagnosed new problem with uncertain prognosis? @ -No Drug Therapy requiring intensive monitoring for toxicity (Heparin, Nitro, Insulin, Cardizem)? @ -No Were any procedures done? @ -No Diagnosis/symptom? @ -Homicidal ideation with a plan Acute, or Chronic, or Acute on Chronic? @ -Acute Uncomplicated (without systemic symptoms) or Complicated (systemic symptoms)? @ -Complicated Side effects of treatment? @ -None Exacerbation, Progression, or Severe Exacerbation] @ -No Poses a threat to life or bodily function? @ -Yes - Lab Data Result diagrams: 03/14/25 13:48 03/14/25 13:48 Lab Results 03/14/25 03/14/25 03/14/25 Range/Units 13:48 13:48 13:48 WBC 8.98 (4.50-10.00) 10*3/uL RBC 4.73 (4.10-5.20) 10*6/uL Hgb 14.8 (12.0-15.0) g/dL Hct 42.0 (37.2-46.3) % MCV 88.8 (80.0-97.0) fL MCH 31.3 (27.0-32.0) pg MCHC 35.2 (32.0-37.0) g/dL Plt Count 264 (140-440) 10*3/uL MPV 8.4 L (9.5-12.2) fL Immature Gran % (Auto) 0.3 % Neutrophils % 68.4 % Lymphocytes % 22.5 % Monocytes % 6.0 % Eosinophils % 2.1 % Basophils % 0.7 % Immature Gran # 0.03 (0.00-0.04) 10*3/uL Neutrophils # 6.14 (1.80-7.70) 10*3/uL Lymphocytes # 2.02 (0.90-5.00) 10*3/uL Monocytes # 0.54 (0.20-1.00) 10*3/uL Eosinophils # 0.19 (0.04-0.35) 10*3/uL Basophils # 0.06 (0.00-0.10) 10*3/uL Sodium 138 (137-145) mmol/L Potassium 3.9 (3.5-5.1) mmol/L Chloride 109 H (98-107) mmol/L Carbon Dioxide 18 L (22-30) mmol/L Anion Gap 11 mmol/L BUN 12 (7-17) mg/dL Creatinine 0.97 (0.52-1.04) mg/dL Est GFR (CKD-EPI)AfAm 68 (>60 ml/min/1.73 sqM) Est GFR (CKD-EPI)NonAf 59 (>60 ml/min/1.73 sqM) Glucose 130 H (74-99) mg/dL Calcium 9.5 (8.4-10.2) mg/dL Urine Color Urine Appearance (Clear) Urine pH (5.0-8.0) Ur Specific [place] (1.001-1.035) Urine Protein (Negative) Urine Glucose (UA) (Negative) Urine Ketones (Negative) Urine Blood (Negative) Urine Nitrite (Negative) Urine Bilirubin (Negative) Urine Urobilinogen (<2.0) mg/dL Ur Leukocyte Esterase (Negative) Urine RBC (0-5) /hpf Urine WBC (0-5) /hpf Ur Squamous Epith Cells (0-4) /hpf Urine Mucus (None) /hpf Urine Opiates Screen Not Detected (NotDetected) Ur Oxycodone Screen Not Detected (NotDetected) Urine Methadone Screen Not Detected (NotDetected) Ur Barbiturates Screen Not Detected (NotDetected) U Tricyclic Antidepress Not Detected (NotDetected) Ur Phencyclidine Scrn Not Detected (NotDetected) Ur Amphetamines Screen Not Detected (NotDetected) U Methamphetamines Scrn Not Detected (NotDetected) U Benzodiazepines Scrn Detected H (NotDetected) Urine Cocaine Screen Not Detected (NotDetected) U Marijuana (THC) Screen Not Detected (NotDetected) SARS-CoV-2 (PCR) (Not Detectd) 03/14/25 03/14/25 Range/Units 13:48 13:48 WBC (4.50-10.00) 10*3/uL RBC (4.10-5.20) 10*6/uL Hgb (12.0-15.0) g/dL Hct (37.2-46.3) % MCV (80.0-97.0) fL MCH (27.0-32.0) pg MCHC (32.0-37.0) g/dL Plt Count (140-440) 10*3/uL MPV (9.5-12.2) fL Immature Gran % (Auto) % Neutrophils % % Lymphocytes % % Monocytes % % Eosinophils % % Basophils % % Immature Gran # (0.00-0.04) 10*3/uL Neutrophils # (1.80-7.70) 10*3/uL Lymphocytes # (0.90-5.00) 10*3/uL Monocytes # (0.20-1.00) 10*3/uL Eosinophils # (0.04-0.35) 10*3/uL Basophils # (0.00-0.10) 10*3/uL Sodium (137-145) mmol/L Potassium (3.5-5.1) mmol/L Chloride (98-107) mmol/L Carbon Dioxide (22-30) mmol/L Anion Gap mmol/L BUN (7-17) mg/dL Creatinine (0.52-1.04) mg/dL Est GFR (CKD-EPI)AfAm (>60 ml/min/1.73 sqM) Est GFR (CKD-EPI)NonAf (>60 ml/min/1.73 sqM) Glucose (74-99) mg/dL Calcium (8.4-10.2) mg/dL Urine Color Colorless Urine Appearance Clear (Clear) Urine pH 5.0 (5.0-8.0) Ur Specific [place] 1.007 (1.001-1.035) Urine Protein Negative (Negative) Urine Glucose (UA) Negative (Negative) Urine Ketones Negative (Negative) Urine Blood Negative (Negative) Urine Nitrite Negative (Negative) Urine Bilirubin Negative (Negative) Urine Urobilinogen <2.0 (<2.0) mg/dL Ur Leukocyte Esterase Moderate H (Negative) Urine RBC 1 (0-5) /hpf Urine WBC 7 H (0-5) /hpf Ur Squamous Epith Cells 2 (0-4) /hpf Urine Mucus Rare H (None) /hpf Urine Opiates Screen (NotDetected) Ur Oxycodone Screen (NotDetected) Urine Methadone Screen (NotDetected) Ur Barbiturates Screen (NotDetected) U Tricyclic Antidepress (NotDetected) Ur Phencyclidine Scrn (NotDetected) Ur Amphetamines Screen (NotDetected) U Methamphetamines Scrn (NotDetected) U Benzodiazepines Scrn (NotDetected) Urine Cocaine Screen (NotDetected) U Marijuana (THC) Screen (NotDetected) SARS-CoV-2 (PCR) Not Detected (Not Detectd) - EKG Data -: EKG Interpreted by Me EKG Comments: 12-lead Electrocardiogram Interpretation Note EKG was reviewed and interpreted by myself. 12-lead ECG performed at 1406 is interpreted by me as revealing normal sinus rhythm at a rate of 64 beats per minute. Left axis deviation. NV interval is 192 ms, QRS durations 126 ms, QTc is 442 ms.. There were no ST or T wave abnormalities to suggest myocardial ischemia or injury. R wave progression across the precordium was delayed. By my interpretation this EKG is non-diagnostic for acute ischemia. Compared with EKG from March 2023 with no significant acute change. Disposition Clinical Impression: Homicidal ideations Disposition: TRANSFER TO PSYCH HOSP/UNIT Condition: Stable Referrals: Minoo Gipson III, MD [Primary Care Provider] - 1-2 days
[2025-03-14 14:08] LABS: African American GFR (CKD) 68 (>60 ml/min/1.73 sqM); Anion Gap 11 mmol/L; Blood Urea Nitrogen 12 mg/dL (7-17); Calcium 9.5 mg/dL (8.4-10.2); Carbon Dioxide 18 mmol/L (22-30); Chloride 109 mmol/L (98-107); Glucose 130 mg/dL (74-99); Non-African American GFR(CKD) 59 (>60 ml/min/1.73 sqM); Potassium 3.9 mmol/L (3.5-5.1); Sodium 138 mmol/L (137-145)
[2025-03-14 14:11] LABS: Opiate Screen,Urine Not Detected (NotDetected); Phencyclidine Screen,Urine Not Detected (NotDetected); Urn Cannabinoid Scrn Not Detected (NotDetected)
[2025-03-14 14:12] LABS: Barbiturate Screen,Urine Not Detected (NotDetected); Benzodiazepines Screen,Urine Detected (NotDetected); Oxycodone Screen, Urine Not Detected (NotDetected); Tricyclic Antidepressant,Urine Not Detected (NotDetected)
[2025-03-14] MEDS: LORazepam 0.5 MG TAB PO PRN (21:39)
[2025-03-14] MEDS: MIRTAZAPINE 15 MG TAB PO SCH (23:48)
[2025-03-14] MEDS: OLANZapine 5 MG TAB PO SCH (23:49)
[2025-03-14] MEDS: MELATONIN 3 MG TABLET PO SCH (23:49)
[2025-03-15 08:33] VITALS: TEMP 98.1
[2025-03-15] MEDS: PANTOPRAZOLE 40 MG TABLET PO SCH (08:34)
[2025-03-15] MEDS: hydrOXYzine HCL 25 MG TAB PO SCH (08:34)
[2025-03-15] MEDS ORDERED: LORazepam 1 MG TAB PO STA (08:48)
[2025-03-15] MEDS: LORazepam 0.5 MG TAB PO STA (08:58)
[2025-03-15 12:17] VITALS: BP 160/99; PULSE 102; RESP 22
[2025-03-15] MEDS ORDERED: MELATONIN 3 MG TABLET PO SCH (21:00)
[2025-03-15] MEDS ORDERED: MIRTAZAPINE 15 MG TAB PO SCH (21:00)
== END 2025-03-15 12:17 ==
LOC: EC 12:49
DX: R45.850 Homicidal ideations (principal); Z88.0 Allergy status to penicillin; Z88.1 Allergy status to other antibiotic agents; Z88.2 Allergy status to sulfonamides; Z88.7 Allergy status to serum and vaccine; Z88.8 Allergy status to other drugs, medicaments and biological substances; Z87.891 Personal history of nicotine dependence; Z11.52 Encounter for screening for COVID-19
CPT/HCPCS: 36415; 80048; 80306; 81001; 82075; 85025; 87635; 93005; 99285